=== PATIENT | male | born 1940 | race Caucasian/White ===

== ENCOUNTER → 2017-11-16 13:30 | Outpatient (BNVA) | payer OTHER, SELFPAY | PROVIDERS: PCP Physician Assistant Medical; Referring Provider Internal Medicine; Visit Provider Nurse Practitioner Adult Health | DX: R41.3 Other amnesia (principal); R25.1 Tremor, unspecified | CPT/HCPCS: 99204 ==

== ENCOUNTER 2017-12-05 11:56 | Emergency (ER) | payer OTHER, SELFPAY ==
[2017-12-05 12:00] VITALS: BP 151/68; PULSE 51; RESP 16; TEMP 36.6; O2SAT 99
--- NOTE | 2017-12-05 12:45 | W.ED.GENAD ---
Discharge Plan Disposition Patient Disposition: HOME Condition: Stable Discharge Details Chief Complaint: Cellulitis Clinical Impression: Cellulitis of left hand, Abrasion of hand, left Primary Care Provider: Josh Rodrigues V ED Provider: Sona Keith Home Meds and New Rx's Prescriptions: New clindamycin HCl 150 mg capsule 450 mg PO TID 7 Days Qty: 63 RF: 0 Continue warfarin [Coumadin] 5 MG tablet 2.5 mg PO DIRECTED RF: 0 brimonidine 15 ML drops 1 drp Ophthalmic DIRECTED RF: 0 donepezil 10 MG tablet,disintegrating 10 mg PO DAILY RF: 0 latanoprost [Xalatan] 2.5 ML drops OU QPM Qty: 60 RF: 0 pravastatin 20 MG tablet 20 mg PO QPM Qty: 60 RF: 0 Discharge Instructions Instructions: Cellulitis (ED), Abrasion (ED) Additional Instructions: Keep left hand clean dry and covered. Apply topical antibiotic ointment to left hand wound. You should receive a call from care management regarding follow-up appointment with a primary care doctor within the next few days for reevaluation. Return immediately to the emergency department any worsening or new concerning symptoms such as fever, red streaking or any worsening signs of infection. Be sure to take probiotics or eat yogurt to help with possible risk of diarrhea due to antibiotics. Discharge Data Discharge Date/Time-TO BE ENTERED AT DEPARTURE: 12/05/17 14:23 Discharge Physician: Sona Keith Medical Decision Making 77-year-old male presents with abrasion to left dorsal hand near left fourth and fifth metacarpal after hit hand on steel door with extension of mild to moderate edema and erythema onto hand and distal wrist over the past 2 days. Tetanus up-to-date 2011. Denies fever. Patient appears nontoxic. There is no fluctuance, induration, red streaking. He does have what appears to be a mild cellulitis of the left hand. Patient was offered x-ray but declines. There does not appear to be any bony injury, ecchymosis or deformity. Patient has an allergy to penicillin and he is unsure of the reaction so we will hold on Keflex. Will give a dose of clindamycin here and prescription for home. He was informed of the risk of diarrhea, C. difficile colitis with clindamycin but due to high risk of worsening hand infection, will treat. Will arrange for care management to make a follow-up appointment with his primary care doctor within the next 2 days for reevaluation. Patient was instructed to return here immediately if worse. HPI General Mode of arrival: ambulatory. Date/Time Provider Initiated Documentation: 12/05/17 12:12. Limitations to Documentation: no limitations. Information obtained by: patient. HPI Narrative: Patient is a 77-year-old male who presents to the ED with a complaint of left hand infection after hit hand against a steel door 2 days ago. Patient states he has been washing the area and using peroxide without relief. Now he notes redness and swelling spreading from the left knuckle to the hand and wrist. He denies known fever and states he has been eating and drinking normally. He denies any recent antibiotics. Past medical history: CVA, cholesterol, atrial fibrillation, dementia Surgical history: Social history: Quit tobacco, denies alcohol or drugs Medications: Coumadin, pravastatin, [facility] pencil Allergies: Penicillin PCP: Dr. Candi Conteh Related Data Home Medications Medication Instructions Recorded Confirmed latanoprost [Xalatan] 0 ml OU QPM #60 btl 09/27/12 12/05/17 pravastatin 20 mg PO QPM #60 tab 09/27/12 12/05/17 brimonidine 1 drp OPHTHALMIC DIRECTED 09/27/17 12/05/17 script donepezil 10 mg PO DAILY tab-cap 09/27/17 11/16/17 warfarin [Coumadin] 2.5 mg PO DIRECTED tab-cap 09/27/17 12/05/17 clindamycin HCl 450 mg PO TID 7 Days #63 cap 12/05/17 Previous Rx's Medication Instructions Recorded latanoprost [Xalatan] 0 ml OU QPM #60 btl 09/27/12 pravastatin 20 mg PO QPM #60 tab 09/27/12 clindamycin HCl 450 mg PO TID 7 Days #63 cap 12/05/17 Allergies Allergy/AdvReac Type Severity Reaction Status Date / Time Penicillins Allergy Unknown long time Unverified 12/05/17 12:05 ago General Stated Complaint: Cellulitis MISSAEL: 3 Review of Systems Review of Systems All systems reviewed & are unremarkable except as noted in HPI and below Constitutional Denies chills, Denies excessive sweating, Denies fatigue, Denies fever(s), Denies weakness and Denies weight loss Eyes Reports system reviewed and no additional complaints, except as docu and Denies blurry vision ENT Denies vertigo, Denies dizziness, Denies otalgia, Denies nasal congestion, Denies sore throat and Denies throat swelling Cardiovascular Denies chest pain, Denies syncope, Denies rapid heart rate and Denies dyspnea Respiratory Denies dyspnea Gastrointestinal Denies abdominal pain, Denies diarrhea and Denies vomiting Genitourinary Denies hematuria, Denies dysuria and Denies flank pain Musculoskeletal Denies back pain, Reports arthralgias and Reports joint swelling Integumentary/Breasts Denies lesions and Denies rash Neurologic Denies behavioral changes, Denies confusion, Denies vertigo, Denies dizziness, Denies syncope and Denies weakness Psychiatric Denies behavioral changes, Denies confusion and Denies depression Endocrine Denies excessive sweating and Denies fatigue Hematologic/Lymphatic Denies easy bruising and Denies lymphadenopathy Allergic/Immunologic Denies throat swelling PFSH Family History Other Dementia Medical History Hx of smoking (Acute) Glaucoma (Chronic) History of CVA (cerebrovascular accident) (Acute) Hyperlipidemia (Acute) Chest pain (Acute) Chronic anticoagulation (Acute) Paroxysmal A-fib (Acute) Dementia (Chronic) Laceration of thigh, left (Acute) Social History lives independently: Yes Smoking/Tobacco Use Status: Former Tobacco Use alcohol intake: former substance use type: does not use Exam Const General: cooperative and healthy appearing Orientation: alert and awake [facility] Head: normal to inspection Ears: hearing grossly normal bilaterally and external ears normal General nose exam: external nose normal Face and sinus: normal facial exam Mouth: oral mucosae normal Eyes General: appearance normal, both eyes and all related structures Eyelids: eyelids normal EOM: EOM intact bilaterally Neck Neck: normal visual inspection Lymphatic: no lymphadenopathy noted Chest Chest: normal inspection of the chest Resp Effort & Inspection: normal respiratory effort and able to speak in complete sentences Cardio Rate: regular rate Neuro General: alert and awake Cognition: normal cognition Speech: speech normal Gait: normal gait Motor: muscle tone normal throughout Sensory Exam: no sensory deficits noted Extrem General: normal capillary refill Left upper extremity: wrist (Mild to moderate edema and erythema extending from left dorsal hand to left wrist) and hand (2 mm wound with abrasion noted on left dorsal hand between fourth and fifth metacarpal. Mild to moderate edema and erythema noted to left dorsal hand. No fluctuance, induration or abscess noted per) Psych Appearance: grossly normal Mental Status: mental status grossly normal Speech and Movement: speech and movement normal Affect: normal affect Thought Process: normal Course Vital Signs Temperature 97.9 F 12/05/17 12:00 Pulse 51 L 12/05/17 12:00 Respiratory Rate 16 12/05/17 12:00 Blood Pressure 151/68 H 12/05/17 12:00 Pulse Oximetry 99 12/05/17 12:00 Temperature 97.9 F 12/05/17 12:00 Temperature Source Skin 12/05/17 12:00 Pulse 51 L 12/05/17 12:00 Respiratory Rate 16 12/05/17 12:00 Respiratory Effort 12/05/17 12:09 Blood Pressure 151/68 H 12/05/17 12:00 Pulse Oximetry 99 12/05/17 12:00 Oxygen Delivery Method Room Air 12/05/17 12:00 Oxygen Flow Rate 0 12/05/17 12:00
[2017-12-05] MEDS: Clindamycin 150 MG CAP 450 MG PO (12:50)
--- NOTE | 2017-12-06 10:33 | PDOC.ERCMPRO ---
Care Management Progress Note 12/06-Dr. Keith requested assistance with a PCP (Josh Rodrigues) f/u in 2-3 days for cellulitis. Referral faxed along with provider note to [facility]. Spoke with Elisha at [facility] and she will reach out to patient and schedule appt. Called [facility] and they have changed the provider to reflect Josh Rodrigues.
--- NOTE | 2017-12-06 10:36 | CMPROGNOTE_ITS ---
Care Management Progress Note 12/06-Dr. Keith requested assistance with a PCP (Josh Rodrigues) f/u in 2-3 days for cellulitis. Referral faxed along with provider note to [facility]. Spoke with Elisha at [facility] and she will reach out to patient and schedule appt. Called [facility] and they have changed the provider to reflect Josh Rodrigues.
== END 2017-12-05 14:23 | disposition home or self-care (01) ==
LOC: ER 13:26
PROVIDERS: Emergency Provider Physician Assistant; PCP Physician Assistant Medical
DX: L03.114 Cellulitis of left upper limb (principal); S60.512A Abrasion of left hand, initial encounter; W22.8XXA Striking against or struck by other objects, initial encounter; Z79.01 Long term (current) use of anticoagulants; I48.91 Unspecified atrial fibrillation
CPT/HCPCS: 99283

== ENCOUNTER 2018-10-20 16:23 | Outpatient (REF) | payer OTHER, SELFPAY ==
[2018-10-20 19:16] LABS: HCT 36.6 % (40.0-50.0); HGB 11.4 g/dL (13.5-17.5); Mean Corp. HGB Concentration 31.1 g/dL (32.0-36.0); Mean Corpuscular Hemoglobin 28.6 pg (27.0-33.0); Mean Platelet Volume 11.3 fL (8.0-11.0); Platelet Count 197 x1000/uL (130-400); RBC 3.98 m/cumm (4.50-6.00); RBC Distribution Width 14.6 % (11.8-14.1); White Blood Cell Count 6.08 k/cumm (4.4-10.8)
[2018-10-20 19:35] LABS: ALT 178 U/L (16-63); AST 134 U/L (15-37); Albumin 3.1 g/dL (3.4-5.0); Alkaline Phosphatase 189 U/L (46-116); Anion Gap 6.5 mmol/L (3-11); BUN 20 mg/dL (7-18); Bilirubin, Total 0.6 mg/dL (0.2-1.0); CO2 30.5 mmol/L (21.0-32.0); CREATININE 1.16 mg/dL (0.70-1.30); Calcium 8.3 mg/dL (8.5-10.1); Chloride 103 mmol/L (98-107); Glucose 95 mg/dL (70-100); Potassium 4.3 mmol/L (3.5-5.1); Sodium 140 mmol/L (136-145); TSH 3.52 uIU/mL (0.36-3.74); Total Protein 6.3 g/dL (6.4-8.2)
--- NOTE | 2018-10-31 08:54 | INDS_ITS ---
Date of service: 10/31/18 Time of Service: 08:54 PT Notes Inpatient Physical Therapy Discharge Summary Dates: 10/31/2018 Dates of Service: 10/25/2018 through 10/26/2018 This is a clinical summary of care provided on the duration of dates listed above. No charge was made in the completion of this documentation. Referring Doctor: Marlene Brice NP PT Orders: PT CONSULT: Patient w/ dizziness; ?vertigo and s/p falls, evaluate/treat fall safety Precautions: Fall. Standard. Activity as tolerated. 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 Patient was diagnosed with dizziness, paroxysmal atrial fibrillation, and increased brain natriuretic peptide. PMHX: Medical History (Updated 10/23/18 @ 23:39 by Greg Morse) Cerebrovascular accident (Active 09/25/12) Presumed ischemic left thalamus, balance problems and speech problems 09/25/2012. Chest pain (Resolved) Chronic anticoagulation (Acute) Dementia (Chronic) probable Lewy body dementia (associated w/ tremors, gait instability and visual hallucinations) Glaucoma (Chronic) History of CVA (cerebrovascular accident) (Acute) Hx of smoking (Acute) Hyperlipidemia (Acute) Laceration of thigh, left (Resolved) Paroxysmal A-fib (Acute) Surgical History (Updated 10/23/18 @ 23:27 by Greg Morse) H/O right knee surgery (Acute) repair after chain saw accident History of phacoemulsification of cataract of both eyes with intraocular lens implantation (Acute) right eye 10/10/2018, left eye 09/26/2018 Social History/Home Situation: Patient lives alone in [place], [place]. 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 Per conversation with daughter, family is considering SNF placement. Patient was independent with all mobilty ADL performance prior to admission. Equipment Owned/DME: None Subjective: Objective: General Observation: NT. Please refer to 10/26/2018 DIRECTOR CLINICAL DATA notes. Mental Status: NT. Please refer to 10/26/2018 DIRECTOR CLINICAL DATA notes. Pain: NT. Please refer to 10/26/2018 DIRECTOR CLINICAL DATA notes. ROM: Right Lower Extremity: Hip flexion WFL. Hip abduction WFL. Knee flexion WFL. Ankle dorsiflexion WFL. Ankle plantarflexion WFL. Left Lower Extremity: Hip flexion WFL. Hip abduction WFL. Knee flexion WFL. Ankle dorsiflexion WFL. Ankle plantarflexion WFL. Strength: Right Lower Extremity: Hip flexors 4-/5. Hip abductors 4-/5. Knee flexors 4-/5. Knee extensors 4-/5. Ankle dorsiflexors 4/5. Ankle plantarflexors 4/5. Left Lower Extremity:Hip flexors 4-/5. Hip abductors 4-/5. Knee flexors 4-/5. Knee extensors 4-/5. Ankle dorsiflexors 4/5. Ankle plantarflexors 4/5. Bed Mobility/Transfers: Supine to sit independent Sit to supine independent Sit to stand CGA Stand to sit CGA Bed to chair CGA Chair to bed CGA Gait: Patient tolerated 100 feet of level surface ambulation using FWW requiring CGA. Slowness of movement noted as well as decreased step height and length. Trunk forward flexed, hips and knees slightly flexed. Balance: Static Sitting: Normal Dynamic Sitting: Normal Static Standing: Good Dynamic Standing: Fair Assessment: Patient did not report any dizziness since time of evaluation up until discharge date on 10/26/2018. Testing for dizziness is inconclusive at this time as both [place] and supine roll test resulted to 6-7/10 pain on the neck area. Patient is a 78-year-old male with diagnosis of dizziness, PAF, and increased BNP requiring skilled physical therapy services to address impairments and functional limitations listed below. Patient continues to present with clinical signs and symptoms consistent with current/admitting diagnoses that have resulted to mobility limitations, gait instability, generalized weakness, and impairment of motor control as demonstrated by the following impairment level findings: 1. Decreased strength to B LE major muscle groups 2. Impaired standing balance Impairments are contributing to the following functional limitations: 1. Inability to safely ambulate without assistive device and physical assistance 2. Increase completion time for mobility ADL performance 3. Increased fall risk 4. Inability to negotiate steps alone safely Goals: Goals X1 week 1. Supine-Sit independent MET 2. Sit-Supine independent MET 3. Sit-Stand independent NOT MET 4. Stand-Sit independent NOT MET 5. Bed-Chair independent NOT MET 6. Chair-Bed independent NOT MET 7. Independent gait on level surface with use of least restrictive device for at least 300 feet without report of pain nor dyspnea NOT MET 8. Independent stair negotiation while holding onto bilateral rails for at least 10 steps without report of pain nor dyspnea NOT MET 9. Independent with home exercise program NOT MET 10. Good static and dynamic standing balance/tolerance NOT MET DISCHARGE RECOMMENDATIONS: Patient will benefit from the use of a front wheeled walker in order to reduce fall risk and maximize mobility independence at home. SNF vs. 14/09 care. TREATMENT CODE/TIME: PR. Thank you very much for this referral. Mitzi Brown PT, DPT, CLT [facility]
== END 2018-10-20 16:43 ==
LOC: NCHCN 16:23
PROVIDERS: PCP Physician Assistant Medical; Visit Provider Internal Medicine
DX: I48.0 Paroxysmal atrial fibrillation (principal); I63.9 Cerebral infarction, unspecified; G20 Parkinson's disease; G31.83 Neurocognitive disorder with Lewy bodies
CPT/HCPCS: 80053; 85027; 84443

== ENCOUNTER 2018-10-23 17:06 | Inpatient (IN) | payer OTHER, SELFPAY ==
[2018-10-23] VITALS (31 sets, daily range): BP systolic 105–146; BP diastolic 60–96; PULSE 69–115; RESP 12–24; TEMP 36.5–37.4; O2SAT 97–99
[2018-10-23] MEDS: Normal Saline Flush 10 ML SYR IVP ×2 (17:45→22:16)
[2018-10-23 18:09] LABS: Abs Immature Grans 0.02 k/cumm (0.0-0.09); Absolute Basophil Count 0.01 k/cumm (0.0-0.2); Absolute Eosinophil Count 0.04 k/cumm (0.0-0.7); Absolute Lymphocyte Count 1.32 k/cumm (1.2-3.4); Absolute Monocyte Count 0.44 k/cumm (0.11-0.7); Absolute Neutrophil Count 4.55 k/cumm (1.2-6.7); Basophils % 0.2; Eosinophils % 0.6; HCT 37.8 % (40.0-50.0); HGB 12.1 g/dL (13.5-17.5); Immature Grans % 0.3; Lymphocytes % 20.7; Mean Corpuscular Hemoglobin 29.2 pg (27.0-33.0); Mean Corpuscular Volume 91.3 fL (80-95); Mean Platelet Volume 10.3 fL (8.0-11.0); Monocytes % 6.9; Neutrophils % 71.3; Platelet Count 208 x1000/uL (130-400); RBC 4.14 m/cumm (4.50-6.00); RBC Distribution Width 14.9 % (11.8-14.1); White Blood Cell Count 6.38 k/cumm (4.4-10.8)
[2018-10-23 18:10] LABS: INR 1.2 (0.9-1.1); Prothrombin Time 11.8 sec (9.3-11.0)
--- NOTE | 2018-10-23 18:15 | ED.GENADUL_ITS ---
Discharge Plan Disposition Patient Disposition: [facility] Discharge Details Chief Complaint: Dizzy/Sync Clinical Impression: Dizziness, Atrial fibrillation, CHF (congestive heart failure) Primary Care Provider: Josh Rodrigues V ED Provider: Fransisco Lopez Home Meds and New Rx's Prescriptions: No Action warfarin [Coumadin] 5 MG tablet 2.5 mg PO DAILY RF: 0 prednisolone-moxifloxacin HCl 1-0.5 % Drops,Suspension 1 drp OPHTHALMIC (EYE) DAILY RF: 0 Medical Decision Making 18:20 --78-year-old male with history of CVA in the past, hyperlipidemia, atrial fibrillation on Coumadin, here after 2 episodes of severe dizziness that he describes as vertigo. Patient did not lose consciousness but did fall during these episodes. Bilateral leg edema which is worse than his baseline. Patient sustained a superficial abrasion to his right forearm. He has no bony tenderness. Patient did hit his head and is on Coumadin. Consider intracranial hemorrhage. Plan to obtain CT of the head. Patient notes some neck discomfort and is tender midline neck. I will obtain CT of the cervical spine to assess for fracture. ECG was reviewed and interpreted by me: Atrial fibrillation 111 bpm, right bundle branch block present, nondiagnostic. Patient is not currently taking medications that were listed in prior medical record. He is taking Coumadin as prescribed. He is on no rate controlling agents for his atrial fibrillation. Consider rapid A. fib during these episodes versus other arrhythmia. Patient has no persistent vertigo at this time but he does have a history of prior CVA. Consider posterior circulation TIA vs arrhythmia and syncope. 19:45 --CT of the head interpreted by radiology: No acute intracranial pathology. CT of the cervical spine interpreted by radiology: No acute cervical spine fracture. Labs are reviewed: Patient has subtherapeutic INR. Normal troponin but elevated BNP. I am concerned about intermittent rapid A. fib with CHF. Consider neurologic causes of vertigo - patient may benefit from brain MRI - not currently available. Patient reassessed and heart rate has improved. Currently in the 90s. C-spine cleared by me. -- I called and spoke with Dr. Kiser, on-call hospitalist, who will admit the patient for further diagnostics and treatment. -- Chest x-ray was reviewed and interpreted by me: Cardiomegaly, no significant pleural effusions, pending radiologic interpretation at time of admission. HPI General Mode of arrival: ambulatory . Date/Time Provider Initiated Documentation: 10/23/18 17:19 . Limitations to Documentation: no limitations . Information obtained by: patient and family . HPI Narrative: 78-year-old male with history of CVA and residual right arm resting tremor, paroxysmal atrial fibrillation anticoagulated on Coumadin, glaucoma, hyperlipidemia, presents with chief complaint of dizziness. Patient notes that he had to episodes today of severe room spinning vertigo. One episode occurred this morning and then another episode occurred this afternoon. Episodes were severe and lasted a few minutes. Patient notes he did fall during these episodes. He does not believe he actually lost consciousness. He did scrape his right arm during 1 of the spells and also hit his head. Patient denies dizziness at this time. No weakness or numbness. He denies headache at this time. No chest pain. No abdominal pain. Patient is somewhat of a poor historian. Related Data Home Medications Medication Instructions Recorded Confirmed warfarin [Coumadin] 2.5 mg PO DAILY tab-cap 09/27/17 10/23/18 prednisolone-moxifloxacin HCl 1 drp OPHTHALMIC (EYE) DAILY 10/23/18 10/23/18 Allergies Allergy/AdvReac Type Severity Reaction Status Date / Time Penicillins Allergy Unknown long time Unverified 10/23/18 17:26 ago General Stated Complaint: Dizzy/Sync MISSAEL: 2 Review of Systems Review of Systems All systems reviewed & are unremarkable except as noted in HPI and below Cardiovascular Reports pedal edema (bilateral) and Denies dyspnea Respiratory Denies dyspnea PFSH Medical History Chest pain (Acute) Chronic anticoagulation (Acute) Dementia (Chronic) Glaucoma (Chronic) History of CVA (cerebrovascular accident) (Acute) Hx of smoking (Acute) Hyperlipidemia (Acute) Laceration of thigh, left (Acute) Paroxysmal A-fib (Acute) Family History Other Dementia Social History Smoking/Tobacco Use Status: Former Tobacco Use Alcohol Intake: former Drug use: Never Substance use type: does not use Do you feel safe at home: Yes Do you feel safe in your relationship?: Yes Exam Const General: cooperative, comfortable, no acute distress and well developed Orientation: alert and awake HENMT Head: normocephalic and atraumatic Mouth: moist mucous membranes Eyes Conjunctivae: normal conjunctivae Sclera: normal sclerae EOM: EOM intact bilaterally and No nystagmus Neck Neck: trachea midline and supple Resp Auscultation: clear to auscultation bilaterally, no rales, no rhonchi and no wheezes Cardio Jugular venous pressure: no JVD Rate: tachycardic Rhythm: abnormal rhythm irregularly irregular Heart Sounds: no murmurs GI Palpation: soft, not firm, no guarding, no masses, not rigid and nontender Back/Spine/Pelvis Cervical Spine: collar present and other (Cervical tenderness) Skin General skin exam: no rashes or lesions noted Trauma: abrasion (Skin tear right proximal forearm) Neuro General: alert, awake, oriented x3 and tone normal Cranial Nerves: no nystagmus Extrem General: no calf tenderness and edema Laterality: bilateral (1+ pitting) Right upper extremity: elbow/forearm Details: normal ROM; no tenderness, no swelling and no deformity Psych Appearance: grossly normal Mental Status: mental status grossly normal Speech and Movement: speech and movement normal Course Vital Signs Temperature 37.4 C 10/23/18 17:12 Pulse 102 H 10/23/18 17:12 Respiratory Rate 18 10/23/18 17:12 Blood Pressure 117/68 10/23/18 17:12 Pulse Oximetry 97 10/23/18 17:12 Temperature 37.4 C 10/23/18 17:12 Temperature Source Skin 10/23/18 17:12 Pulse 102 H 10/23/18 17:12 Respiratory Rate 18 10/23/18 18:10 Respiratory Effort Non-Labored 10/23/18 18:10 Respiratory Depth Normal 10/23/18 18:10 Respiratory Pattern Normal 10/23/18 18:10 Blood Pressure 117/68 10/23/18 17:12 Blood Pressure Position Sitting 10/23/18 17:12 Pulse Oximetry 97 10/23/18 17:12 Oxygen Delivery Method Room Air 10/23/18 17:12 Oxygen Flow Rate 0 10/23/18 17:12 Lab/Test Results Lab/Test Results: Laboratory Tests Range/Units 10/23/18 17:45 WBC (4.4-10.8) k/cumm 6.38 RBC (4.50-6.00) m/cumm 4.14 L Hgb (13.5-17.5) g/dL 12.1 L Hct (40.0-50.0) % 37.8 L MCV (80-95) fL 91.3 MCH (27.0-33.0) pg 29.2 MCHC (32.0-36.0) g/dL 32.0 RDW (11.8-14.1) % 14.9 H Plt Count (130-400) x1000/uL 208 MPV (8.0-11.0) fL 10.3 Immature Gran % 0.3 Neutrophils % 71.3 Lymphocytes % 20.7 Monocytes % 6.9 Eosinophils % 0.6 Basophils % 0.2 Absolute Neutrophils (1.2-6.7) k/cumm 4.55 Absolute Lymphocytes (1.2-3.4) k/cumm 1.32 Absolute Monocytes (0.11-0.7) k/cumm 0.44 Absolute Eosinophils (0.0-0.7) k/cumm 0.04 Absolute Basophils (0.0-0.2) k/cumm 0.01
[2018-10-23 18:18] LABS: ALT 87 U/L (16-63); AST 34 U/L (15-37); Albumin 2.9 g/dL (3.4-5.0); Alkaline Phosphatase 187 U/L (46-116); Anion Gap 9.5 mmol/L (3-11); BUN 21 mg/dL (7-18); Bilirubin, Total 0.5 mg/dL (0.2-1.0); CO2 28.5 mmol/L (21.0-32.0); CREATININE 1.27 mg/dL (0.70-1.30); Calcium 8.5 mg/dL (8.5-10.1); Chloride 105 mmol/L (98-107); Estimated GFR 54.85 (mL/min/1.73m2); Glucose 114 mg/dL (70-100); Magnesium 1.9 mg/dL (1.8-2.4); Sodium 143 mmol/L (136-145); Total Protein 6.7 g/dL (6.4-8.2)
--- NOTE | 2018-10-23 18:20 | DI.CT_ITS ---
SYMPTOMS/DIAGNOSIS: VERTIGO EARLIER, NECK TENDERNESS S/P FALL NONCONTRAST HEAD CT: Comparison is made with September,. The CSF density space is seen in the right basal ganglia, not changed from the previous exam. No acute infarct, hemorrhage or mass is seen. There is mild atrophy. There is mild patchiness of the white matter likely reflecting small vessel disease. There is no evidence of skull fracture. There is mucus retention at the floors of both maxillary sinuses. The mastoid air cells appear clear. IMPRESSION: No acute abnormality. CT OF THE CERVICAL SPINE: There is no evidence of a fracture or subluxation. There are degenerative disc changes and facet degenerative changes. There is no prevertebral soft tissue swelling. No pneumothorax is seen at the lung apices. IMPRESSION: Degenerative changes. No acute abnormality.
--- NOTE | 2018-10-23 18:24 | DI.VRAD_ITS ---
EXAM: CT Head Without Contrast EXAM DATE/TIME: 10/23/2018 5:47 PM CLINICAL HISTORY: 78 years old, male; Other: Vertigo earlier; Other: Vertigo fall earlier TECHNIQUE: Imaging protocol: Computed tomography of the head without contrast. Radiation optimization: All CT scans at this facility use at least one of these dose optimization techniques: automated exposure control; mA and/or kV adjustment per patient size (includes targeted exams where dose is matched to clinical indication); or iterative reconstruction. COMPARISON: CT HEAD WITHOUT CONTRAST 09/25/2012 8:28 AM FINDINGS: Brain: Small chronic right inferior basal ganglia lacunar infarct. Nonspecific hypodensities of the periventricular and deep subcortical white matter, most likely secondary to chronic small vessel ischemic change. No intracranial hemorrhage or extra-axial fluid collection. No evidence of mass effect or midline shift. Luevano-white matter differentiation is normal. Ventricles: Prominence of the ventricles and sulci, most likely attributed to parenchymal volume loss. Bones/joints: No acute osseus lesion or fracture. Sinuses: Unremarkable as visualized. Mastoid air cells: Partial opacification of inferior left mastoid air cells. Soft tissues: Unremarkable. IMPRESSION: 1. No acute intracranial pathology. 2. Partial opacification of inferior left mastoid air cells. 3. Other chronic findings, as above. EXAM: CT Cervical Spine Without Contrast EXAM DATE/TIME: 10/23/2018 5:47 PM CLINICAL HISTORY: 78 years old, male; Other: Vertigo earlier; Other: Vertigo fall earlier TECHNIQUE: Imaging protocol: Computed tomography images of the cervical spine without contrast. Radiation optimization: All CT scans at this facility use at least one of these dose optimization techniques: automated exposure control; mA and/or kV adjustment per patient size (includes targeted exams where dose is matched to clinical indication); or iterative reconstruction. COMPARISON: CT HEAD WITHOUT CONTRAST 09/25/2012 8:28 AM FINDINGS: Vertebrae: Vertebral body heights are maintained. No locked or perched facets. Multilevel facet arthropathy. No acute cervical spine fracture. The dens is intact. Atlanto-axial intervals are normal. Discs/Spinal canal/Neural foramina: Multilevel degenerative changes with intervertebral disc height loss and osteophyte formation, with multilevel areas of mild canal stenosis. Soft tissues: Unremarkable. Lungs: Lung apices are clear. IMPRESSION: No acute cervical spine fracture. Dictated and Authenticated by: Justin Tipton MD. Ordering:NIKO Moody MD
[2018-10-23 18:26] LABS: TSH (W/Ref FT4) 4.12 uIU/mL (0.36-3.74)
[2018-10-23 18:29] LABS: Troponin I < 0.05 ng/mL (0.00-0.06)
[2018-10-23 18:45] LABS: FREE T4 1.19 ng/dL (0.76-1.46)
[2018-10-23 19:11] LABS: NT-proBNP 4588 pg/mL
[2018-10-23 19:13] LABS: Bilirubin Negative (Negative); Blood Negative (Negative); Clarity Clear (Clear); Glucose Negative (Negative); Ketones Negative (Negative); Leukocyte Esterase Negative (Negative); Nitrite Negative (Negative); Specific Gravity 1.015 (1.005-1.025)
[2018-10-23 19:22] LABS: Bacteria Negative HPF (Negative); C & S Indicated? No; Casts Negative LPF (Negative); Crystals Negative HPF (Negative); Epithelial Cells Negative HPF (Negative); Mucus Negative (Negative); Other Cells Negative (Negative); RBC Negative (0-2); WBC 0-2 HPF (0-5)
--- NOTE | 2018-10-23 20:05 | DI.RAD_ITS ---
SYMPTOMS/DIAGNOSIS: LEG SWELLING, SYNCOPE AP AND LATERAL CHEST: Comparison is made with September,. The heart is enlarged. The aorta shows calcification. The lungs appear clear. IMPRESSION: Cardiomegaly. No acute abnormality.
--- NOTE | 2018-10-23 20:18 | DI.VRAD_ITS ---
EXAM: XR Chest, 2 Views EXAM DATE/TIME: 10/23/2018 7:51 PM CLINICAL HISTORY: 78 years old, male; Patient HX: Leg swelling, syncope TECHNIQUE: Imaging protocol: XR of the chest, 2 views. COMPARISON: CR CHEST 2 VIEWS PA,LAT 09/25/2012 8:19 AM FINDINGS: Lungs: No focal areas of consolidation. Pleural space: No pleural effusion or pneumothorax. Heart/Mediastinum: Cardiac and mediastinal silhouettes are unremarkable. Bones/joints: No acute osseus lesion or fracture. IMPRESSION: No acute cardiopulmonary pathology. Dictated and Authenticated by: Justin Tipton MD. Ordering:NIKO Moody MD
--- NOTE | 2018-10-23 21:30 | W.PM.HP.N ---
Date of service: 10/23/18 Time of Service: 21:30 Assessment and Plan (1) Dizziness: Current visit: Yes Status: Acute After discussion with his daughter, it appears that his dizziness and falls are not new and in fact he has had gait instability since his CVA in September 2012 but in past year has gotten worse and now has right sided tremors and slow shuffling gait and hallucinations and frequent memory lapses causing him to get lost while driving. he has been evaluated in the neurology clinic by Maribeth Aragon CNP but has not followed up with Dr. Tucker yet (he was suppose to see her after getting an MRI of brain and B12 level and then follow up w/ neurologist to evaluate for Parkinson's with dementia versus Lewy Body dementia. Dr. Beltran has been handling all of the patient's workup according to the patient's daughter. I will get P.T. to assess his gait/balance, we will get MRI of brain on Wednesday. I will check B12 level in a.m. His TSH was slightly high but with normal T4. (2) Paroxysmal A-fib: Current visit: No Status: Acute I have started him on low dose lopressor 12.5 mg PO tid. I will also increase his warfarin. He has been taking 5 mg on Mondays and 2.5 mg all other days of the week. His INR is low at 1.2, therefore I think that we can at least increase his dose to 5 mg on Wednesday, Wednesday and Wednesday and 2.5 mg all other day I will check echocardiogram to evaluate his LV and RV function given his elevated BNP. I will also continue to cycle his troponin to rule out ACS. (3) Elevated brain natriuretic peptide (BNP) level: Current visit: Yes Status: Acute as above. I have given him one time dose of lasix 20 mg IV. I will start him on low dose lasix orally. We will get echocardiogram on Wednesday. 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 Questionable LOC but both episodes associated w/ falls resulting in superficial abrasions on right forearem. CT of head and neck w/out contrast were negative for any acute findings. EKG demonstrated rapid afib at 111 bpm, RBBB. INR was subtherapeutic at 1.2. CBC remarkable for mild stable anemia w/ Hb 1.2 gm, Hct 37%. CMP remarkable for minimally elevated BUN 21 and mild elevated LFT's w/ ALT 87, normal AST 34 and alkaline phosphatase 187. Troponin I <0.05 but pro-BNP elevated at 4588. CXR w/ cardiomegaly but no infiltrates nor effusions but officially read as no acute cardiopulmonary pathology. Patient is admitted for evaluation and treatment of his afib and presumed mild CHF and evaluation of his dizziness. Dr. Lopez raised concerns that he may have had posterior circulation TIA given his afib and subtherapeutic INR and concerns for acute CHF d/t rapid afib. However, after speaking w/ his daughter, he has been having frequent dizzy spells for over a year and has been prescribed meclizine which has not helped. He has had no other acute neurologic symptoms w/ his vertigo spells today, i.e., no vision loss, no acute paraparesis, no ataxia, no paresthesias. Additional information gained from his daughter includes: Frequent hallucinations and worsening tremors in his right arm/hand along w/ the frequent dizzy spells: this has prompted his PCP, Dr. Beltran to order CT of his head for next ; Elevated LFT's for which Dr. Beltran has ordered CT of his abdomen and pelvis and labs to evaluate for hepatitis; patient has been told to stop his Pravastatin while his LFT's are being evaluated. Dr. Beltran has considered switching the patient off warfarin and on to a DOAC (it is interesting since according to the patient's dc summary from his CVA in September 2012, according to Dr. Stringer, the patient was discharged on Xarelto for his afib because of the presumed cardioembolic cva to his left thalamus). Review of Systems Constitutional Reports as per HPI and Reports frequent falls Eyes Denies loss of vision ENT Reports vertigo and Reports dizziness Cardiovascular Denies chest pain, Denies chest pain with activity, Denies syncope, Reports pedal edema, Reports irregular heart rhythm, Reports leg edema, Reports lightheadedness, Denies palpitations, Denies dyspnea and Denies dyspnea on exertion Respiratory Denies dyspnea and Denies dyspnea on exertion Gastrointestinal Reports system reviewed and no additional complaints, except as docu Genitourinary Reports system reviewed and no additional complaints, except as docu Neurologic Reports behavioral changes, Reports vertigo, Reports dizziness, Denies syncope, Reports frequent falls, Reports lack of coordination, Denies loss of vision, Reports memory loss, Reports other visual disturbances and Reports tremor(s) Psychiatric Reports behavioral changes, Reports difficulty concentrating, Reports memory loss and Reports visual hallucinations (night time hallucinations including seeing of angels flying around) Endocrine Denies palpitations [facility] Medical History (Updated 10/23/18 @ 23:39 by Greg Morse) Cerebrovascular accident (Active 09/25/12) Presumed ischemic left thalamus, balance problems and speech problems 09/25/2012. Chest pain (Resolved) Chronic anticoagulation (Acute) Dementia (Chronic) probable Lewy body dementia (associated w/ tremors, gait instability and visual hallucinations) Glaucoma (Chronic) History of CVA (cerebrovascular accident) (Acute) Hx of smoking (Acute) Hyperlipidemia (Acute) Laceration of thigh, left (Resolved) Paroxysmal A-fib (Acute) Surgical History (Updated 10/23/18 @ 23:27 by Greg Morse) H/O right knee surgery (Acute) repair after chain saw accident History of phacoemulsification of cataract of both eyes with intraocular lens implantation (Acute) right eye 10/10/2018, left eye 09/26/2018 Family History Father , in his lat 70's Heart disease Colon cancer Mother , in her 80's Stroke Dementia Social History Smoking/Tobacco Use Status: Former Tobacco Use Alcohol Intake: former Drug use: Never Substance use type: does not use 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[place], [place] Do you feel safe at home: Yes Do you feel safe in your relationship?: Yes Meds Home Medications Medication Instructions Recorded Confirmed Type warfarin [Coumadin] 2.5 mg PO DAILY tab-cap 09/27/17 10/23/18 History prednisolone-moxifloxacin HCl 1 drp OPHTHALMIC (EYE) DAILY 10/23/18 10/23/18 History Allergies Allergy/AdvReac Type Severity Reaction Status Date / Time Penicillins Allergy Unknown long time Unverified 10/23/18 17:26 ago Exam Const General: cooperative, no acute distress and well developed Nutritional Appearance: overweight Orientation: alert, awake, oriented to person and oriented to place [facility] Head: normal to inspection, no palpable skull fracture, normocephalic and atraumatic General nose exam: external nose normal and nares normal Face and sinus: normal facial exam Mouth: oral mucosae normal, lip normal, tongue normal, oropharynx normal and moist mucous membranes Resp Effort & Inspection: normal respiratory effort and able to speak in complete sentences Auscultation: clear to auscultation bilaterally Cardio Jugular venous pressure: no JVD Palpation: normal PMI Rate: tachycardic Rhythm: abnormal rhythm irregularly irregular Heart Sounds: no murmurs and no rubs Bruits: no carotid bruits Pulses: normal peripheral pulses GI Inspection: normal to inspection Palpation: soft and no hepatosplenomegaly Percussion: normal to percussion Auscultation: normal bowel sounds Skin General skin exam: ecchymosis (over forearms) Trauma: abrasion (right forearm w/ superficial abrasion; has tegaderm patch over it) Neuro General: alert, awake, oriented Patient Orientation: Person and Place, moves all extremities, normal light touch, pain and propioception, no focal motor deficits and CN's II-XI intact bilaterally Cranial Nerves: PERRL, accommodation normal, EOM intact bilaterally, no nystagmus, facial strength normal, tongue midline, gag reflex normal, able to rotate head bilaterally and able to elevate shoulders bilaterally Cognition: normal cognition Speech: speech normal Gait: shuffling Motor: muscle tone normal throughout, strength 5/5 throughout and pronator drift pronator drift of right upper extremity Sensory Exam: no sensory deficits noted Extrem General: full ROM, normal capillary refill, no joint enlargement, edema Laterality: bilateral and pedal edema bilaterally (2+ pitting flip over both feet and pretibial half way up tibia) Psych Speech and Movement: delayed speech and slowed movement Mood: congruent mood Affect: normal affect Attitude: cooperative Thought Process: circumstantial Thought Content: normal Insight: limited Judgment: limited Results Imaging Chest x-ray: image reviewed EKG: image reviewed (afib at 111 bpm, RBBB w/ concordant ST-T downsloping/inversion in V1-V4) Imaging Studies: CT of head w/out contrast: IMPRESSION: 1. No acute intracranial pathology. 2. Partial opacification of inferior left mastoid air cells. 3. Other chronic findings, as above CT of neck w/out constrast: IMPRESSION: No acute cervical spine fracture. Labs : 10/23/18 17:45 10/23/18 17:45 Laboratory Results - last 24 hr 10/23/18 10/23/18 10/23/18 17:45 17:45 17:45 WBC 6.38 RBC 4.14 L Hgb 12.1 L Hct 37.8 L MCV 91.3 MCH 29.2 MCHC 32.0 RDW 14.9 H Plt Count 208 MPV 10.3 Immature Gran % 0.3 Neutrophils % 71.3 Lymphocytes % 20.7 Monocytes % 6.9 Eosinophils % 0.6 Basophils % 0.2 Absolute Neutrophils 4.55 Absolute Lymphocytes 1.32 Absolute Monocytes 0.44 Absolute Eosinophils 0.04 Absolute Basophils 0.01 PT 11.8 H INR 1.2 H Sodium 143 Potassium 4.0 Chloride 105 Carbon Dioxide 28.5 Anion Gap 9.5 BUN 21 H Creatinine 1.27 Estimated GFR/1.73 m2 54.85 Glucose 114 H Calcium 8.5 Magnesium 1.9 Total Bilirubin 0.5 AST 34 ALT 87 H Alkaline Phosphatase 187 H Troponin I < 0.05 NT-Pro-B Natriuret Pep Total Protein 6.7 Albumin 2.9 L TSH Free T4 Urine Color Urine Clarity Urine pH Ur Specific [place] Urine Protein Urine Ketones Urine Blood Urine Nitrite Urine Bilirubin Urine Urobilinogen Ur Leukocyte Esterase Urine RBC Urine WBC Ur Epithelial Cells Urine Crystals Urine Bacteria Urine Casts Urine Mucus Urine Other Ur Culture Indicated? Urine Glucose 10/23/18 10/23/18 10/23/18 17:45 17:45 18:30 WBC RBC Hgb Hct MCV MCH MCHC RDW Plt Count MPV Immature Gran % Neutrophils % Lymphocytes % Monocytes % Eosinophils % Basophils % Absolute Neutrophils Absolute Lymphocytes Absolute Monocytes Absolute Eosinophils Absolute Basophils PT INR Sodium Potassium Chloride Carbon Dioxide Anion Gap BUN Creatinine Estimated GFR/1.73 m2 Glucose Calcium Magnesium Total Bilirubin AST ALT Alkaline Phosphatase Troponin I NT-Pro-B Natriuret Pep 4588 H Total Protein Albumin TSH 4.12 H Free T4 1.19 Urine Color Yellow Urine Clarity Clear Urine pH 7.0 Ur Specific [place] 1.015 Urine Protein Trace H Urine Ketones Negative Urine Blood Negative Urine Nitrite Negative Urine Bilirubin Negative Urine Urobilinogen 2.0 H Ur Leukocyte Esterase Negative Urine RBC Negative Urine WBC 0-2 Ur Epithelial Cells Negative Urine Crystals Negative Urine Bacteria Negative Urine Casts Negative Urine Mucus Negative Urine Other Negative Ur Culture Indicated? No Urine Glucose Negative Last Vital Signs Temp 37.4 C 10/23/18 17:12 Pulse 90 10/23/18 20:30 Resp 18 10/23/18 20:15 BP 146/96 H 10/23/18 20:15 Pulse Ox 98 10/23/18 20:15
[2018-10-23] MEDS: Furosemide 20 MG/2 ML VIAL IVP (22:16)
[2018-10-23] MEDS: Warfarin 5 MG TAB PO (22:16)
[2018-10-23] MEDS: Metoprolol 12.5 MG TAB PO (22:16)
[2018-10-23 22:32] LABS: Troponin I < 0.05 ng/mL (0.00-0.06)
[2018-10-24] VITALS (10 sets, daily range): BP systolic 100–124; BP diastolic 64–77; PULSE 60–93; RESP 18–19; TEMP 36.1–37; O2SAT 93–98
[2018-10-24] MEDS: Metoprolol 12.5 MG TAB PO ×3 (06:02→21:16)
--- NOTE | 2018-10-24 07:27 | W.PM.HP.N ---
[facility] Medical History (Updated 10/23/18 @ 23:39 by Greg Morse) Cerebrovascular accident (Active 09/25/12) Presumed ischemic left thalamus, balance problems and speech problems 09/25/2012. Chest pain (Resolved) Chronic anticoagulation (Acute) Dementia (Chronic) probable Lewy body dementia (associated w/ tremors, gait instability and visual hallucinations) Glaucoma (Chronic) History of CVA (cerebrovascular accident) (Acute) Hx of smoking (Acute) Hyperlipidemia (Acute) Laceration of thigh, left (Resolved) Paroxysmal A-fib (Acute) Surgical History (Updated 10/23/18 @ 23:27 by Greg Morse) H/O right knee surgery (Acute) repair after chain saw accident History of phacoemulsification of cataract of both eyes with intraocular lens implantation (Acute) right eye 10/10/2018, left eye 09/26/2018 Family History Father , in his lat 70's Heart disease Colon cancer Mother , in her 80's Stroke Dementia Social History Smoking/Tobacco Use Status: Former Tobacco Use Alcohol Intake: former Drug use: Never Substance use type: does not use 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[place], [place] Do you feel safe at home: Yes Do you feel safe in your relationship?: Yes Meds Home Medications Medication Instructions Recorded Confirmed Type warfarin [Coumadin] 2.5 mg PO DAILY tab-cap 09/27/17 10/23/18 History prednisolone-moxifloxacin HCl 1 drp OPHTHALMIC (EYE) DAILY 10/23/18 10/23/18 History Allergies Allergy/AdvReac Type Severity Reaction Status Date / Time Penicillins Allergy Unknown long time Unverified 10/23/18 17:26 ago Results Labs : 10/23/18 17:45 10/23/18 17:45 Laboratory Results - last 24 hr 10/23/18 10/23/18 10/23/18 17:45 17:45 17:45 WBC 6.38 RBC 4.14 L Hgb 12.1 L Hct 37.8 L MCV 91.3 MCH 29.2 MCHC 32.0 RDW 14.9 H Plt Count 208 MPV 10.3 Immature Gran % 0.3 Neutrophils % 71.3 Lymphocytes % 20.7 Monocytes % 6.9 Eosinophils % 0.6 Basophils % 0.2 Absolute Neutrophils 4.55 Absolute Lymphocytes 1.32 Absolute Monocytes 0.44 Absolute Eosinophils 0.04 Absolute Basophils 0.01 PT 11.8 H INR 1.2 H Sodium 143 Potassium 4.0 Chloride 105 Carbon Dioxide 28.5 Anion Gap 9.5 BUN 21 H Creatinine 1.27 Estimated GFR/1.73 m2 54.85 Glucose 114 H Calcium 8.5 Magnesium 1.9 Total Bilirubin 0.5 AST 34 ALT 87 H Alkaline Phosphatase 187 H Troponin I < 0.05 NT-Pro-B Natriuret Pep Total Protein 6.7 Albumin 2.9 L TSH Free T4 Urine Color Urine Clarity Urine pH Ur Specific [place] Urine Protein Urine Ketones Urine Blood Urine Nitrite Urine Bilirubin Urine Urobilinogen Ur Leukocyte Esterase Urine RBC Urine WBC Ur Epithelial Cells Urine Crystals Urine Bacteria Urine Casts Urine Mucus Urine Other Ur Culture Indicated? Urine Glucose 10/23/18 10/23/18 10/23/18 17:45 17:45 18:30 WBC RBC Hgb Hct MCV MCH MCHC RDW Plt Count MPV Immature Gran % Neutrophils % Lymphocytes % Monocytes % Eosinophils % Basophils % Absolute Neutrophils Absolute Lymphocytes Absolute Monocytes Absolute Eosinophils Absolute Basophils PT INR Sodium Potassium Chloride Carbon Dioxide Anion Gap BUN Creatinine Estimated GFR/1.73 m2 Glucose Calcium Magnesium Total Bilirubin AST ALT Alkaline Phosphatase Troponin I NT-Pro-B Natriuret Pep 4588 H Total Protein Albumin TSH 4.12 H Free T4 1.19 Urine Color Yellow Urine Clarity Clear Urine pH 7.0 Ur Specific [place] 1.015 Urine Protein Trace H Urine Ketones Negative Urine Blood Negative Urine Nitrite Negative Urine Bilirubin Negative Urine Urobilinogen 2.0 H Ur Leukocyte Esterase Negative Urine RBC Negative Urine WBC 0-2 Ur Epithelial Cells Negative Urine Crystals Negative Urine Bacteria Negative Urine Casts Negative Urine Mucus Negative Urine Other Negative Ur Culture Indicated? No Urine Glucose Negative 10/23/18 21:05 WBC RBC Hgb Hct MCV MCH MCHC RDW Plt Count MPV Immature Gran % Neutrophils % Lymphocytes % Monocytes % Eosinophils % Basophils % Absolute Neutrophils Absolute Lymphocytes Absolute Monocytes Absolute Eosinophils Absolute Basophils PT INR Sodium Potassium Chloride Carbon Dioxide Anion Gap BUN Creatinine Estimated GFR/1.73 m2 Glucose Calcium Magnesium Total Bilirubin AST ALT Alkaline Phosphatase Troponin I < 0.05 NT-Pro-B Natriuret Pep Total Protein Albumin TSH Free T4 Urine Color Urine Clarity Urine pH Ur Specific [place] Urine Protein Urine Ketones Urine Blood Urine Nitrite Urine Bilirubin Urine Urobilinogen Ur Leukocyte Esterase Urine RBC Urine WBC Ur Epithelial Cells Urine Crystals Urine Bacteria Urine Casts Urine Mucus Urine Other Ur Culture Indicated? Urine Glucose Last Vital Signs Temp 36.2 C L 10/24/18 04:27 Pulse 81 10/24/18 06:45 Resp 18 10/24/18 06:45 BP 114/75 10/24/18 06:45 Pulse Ox 97 10/24/18 06:45
[2018-10-24 08:02] LABS: INR 1.2 (0.9-1.1)
[2018-10-24] MEDS: Potassium Chloride 10 MEQ TABCR 20 MEQ PO (08:05)
[2018-10-24 08:14] LABS: Magnesium 1.8 mg/dL (1.8-2.4); NT-proBNP 4878 pg/mL
[2018-10-24 08:18] LABS: Troponin I < 0.05 ng/mL (0.00-0.06)
[2018-10-24 08:19] LABS: Anion Gap 7.9 mmol/L (3-11); BUN 18 mg/dL (7-18); CO2 29.1 mmol/L (21.0-32.0); CREATININE 1.22 mg/dL (0.70-1.30); Calcium 8.6 mg/dL (8.5-10.1); Chloride 105 mmol/L (98-107); Estimated GFR 57.45 (mL/min/1.73m2); Ferritin 411 ng/mL (8-388); Glucose 105 mg/dL (70-100); Potassium 3.4 mmol/L (3.5-5.1); Sodium 142 mmol/L (136-145)
[2018-10-24 08:25] LABS: Iron 48 ug/dL (50-175); Total Iron Binding Capacity 272 ug/dL (250-450); Transferrin Sat 18 % (20-55)
[2018-10-24 08:33] LABS: Vitamin B12 416 pg/mL (193-986)
[2018-10-24] MEDS: LORazepam 0.5 MG TAB PO (08:45)
--- NOTE | 2018-10-24 09:30 | DI.MRI_ITS ---
SYMPTOM/DIAGNOSIS: H/O CVA, A FIB, NEW ONSET DIZZINESS , HEADACHE MRI BRAIN: Comparison is made with head CT dated 23 Oct 2018. T2 sagittal, T1, T2, FLAIR, Diffusion and gradient echo axial sequences were performed. There is no evidence of mass, acute infarct or hemorrhage. The ventricles are within normal limits in size. The vascular flow voids appear intact. IMPRESSION: Atrophy and small vessel disease of white matter. No acute abnormality.
--- NOTE | 2018-10-24 10:05 | DI.MRI_ITS ---
SYMPTOM/DIAGNOSIS: H/O CVA. A FIB, NEW ONSET OF DIZZINESS, HEADACHE MRA [place].: CT angiography was performed with multi slice acquisition and multi planar and 3D reconstruction. The exam is mildly limited by patient motion. There is no evidence of vascular occlusion or significant stenosis. No aneurysm is visible. IMPRESSION: Negative MRA of the brain.
--- NOTE | 2018-10-24 10:39 | DI.MRI_ITS ---
SYMPTOM/DIAGNOSIS: H/O CVA, A FIB WITH NEW ONSET DIZZINESS MRA NECK: CT angiography was performed with multi slice acquisition and multi planar and 3D reconstruction. The exam was somewhat limited by patient motion. There is no evidence of occlusion or significant stenosis. There is no evidence of dissection.
--- NOTE | 2018-10-24 10:49 | PT.INNT ---
Date of service: 10/24/18 PT Notes PT Inpatient non treatment note: 10/24/18 Physical Therapist arrived to treat patient at 915am. Patient had been taken down for imaging with MRI/MRA At 1045 am patient back to floor but noticeably under the effects of the sedative New order came through for PT consult with non Urgent status. Will evaluate tomorrow in the am.
[2018-10-24] MEDS: Magnesium Oxide 400 MG TAB 800 MG PO (10:53)
[2018-10-24] MEDS: Furosemide 20 MG TAB PO (10:53)
[2018-10-24] MEDS: Potassium Chloride 20 MEQ TABCR PO (10:54)
--- NOTE | 2018-10-24 11:05 | DI.VRAD_ITS ---
EXAM: MR Head Without Contrast EXAM DATE/TIME: 10/24/2018 10:16 AM CLINICAL HISTORY: 78 years old, male; Patient HX: HX of CVA, afib, new onset dizziness, headache. TECHNIQUE: Imaging protocol: MR of the head without contrast. COMPARISON: HEAD^MRA COW 10/24/2018 9:[address] HEAD CERVICAL SPINE WO 10/23/2018 6:12:32 PM FINDINGS: Brain: There is chronic lacunar infarct in left thalamus. The ventricles and sulci are proportionally enlarged, consistent with volume loss / atrophy. There is T2 prolongation in the cerebral white matter, consistent with microvascular disease. [place] white differentiation is intact. Diffusion weighted images show no restricted diffusion or evidence of acute infarct. There is no mass effect or midline shift. There is no acute intracranial hemorrhage. There are no extra-axial fluid collections. Ventricles: No evidence of hydrocephalus Sinuses: There are bilateral maxillary sinus small retention cysts or polyps. Mastoid air cells: There is fluid in multiple left mastoid air cells and very few right mastoid air cells. Orbits: There have been bilateral intraocular lens replacements likely related to cataract surgery. Other vasculature: Flow voids in main vascular structures are visualized. IMPRESSION: 1. No evidence of acute intracranial abnormality. No evidence of acute infarction, hemorrhage, or mass. 2. Atrophy and microvascular disease. 3. Given the patient's clinical history and / or findings on MRI, MRA to assess the intracranial vascular system would be appropriate. Dictated and Authenticated by: Katiana Quevedo MD. Ordering:[facility] Lito Garza MD
--- NOTE | 2018-10-24 11:11 | DI.VRAD_ITS ---
EXAM: MR Angiography Neck Without Contrast EXAM DATE/TIME: 10/24/2018 10:31 AM CLINICAL HISTORY: 78 years old, male; Dizziness and giddiness and headache; Patient HX: HX of CVA, afib, new onset dizziness, headache. TECHNIQUE: Imaging protocol: Magnetic resonance angiography of the neck without contrast. 3D rendering: MIP reconstructed images were created and reviewed. COMPARISON: HEAD^MRA COW 10/24/2018 9:44 AM FINDINGS: Right common carotid artery: No significant stenosis or occlusion. No evidence of dissection. Right internal carotid artery: Extracranial segment is patent with no significant stenosis or occlusion. No evidence of dissection. Right external carotid artery: No significant stenosis or occlusion. Right vertebral artery: No significant stenosis or occlusion. No evidence of dissection. Left common carotid artery: No significant stenosis or occlusion. No evidence of dissection. Left internal carotid artery: Extracranial segment is patent with no significant stenosis or occlusion. No evidence of dissection. Left external carotid artery: No significant stenosis or occlusion. Left vertebral artery: No significant stenosis or occlusion. No evidence of dissection. IMPRESSION: No evidence of cervical carotid or vertebral arteries stenosis or occlusion. COMMENT: Reference per NASCET criteria for degree of stenosis: Mild: less than 50% stenosis. Moderate: 50-69% stenosis. Severe: 70-94% stenosis. Near occlusion: 95-99% stenosis. Dictated and Authenticated by: Katiana Quevedo MD. [facility] Lito Garza MD
--- NOTE | 2018-10-24 11:15 | DI.VRAD_ITS ---
EXAM: MR Angiogram Head Without and With Contrast, Arteries EXAM DATE/TIME: 10/24/2018 9:56 AM CLINICAL HISTORY: 78 years old, male; Pain; Patient HX: HX of CVA, afib, new onset dizziness, headache. TECHNIQUE: Imaging protocol: MR angiogram head without and with intravenous contrast. Exam focused on the arteries. 3D rendering: MIP reconstructed images were created and reviewed. COMPARISON: MRI - BRAIN WO CONTRAST 09/26/2012 4:43 PM FINDINGS: Limitations: There is spatial misregistration due to motion and poor seminal M1 and proximal M2 branches of middle cerebral arteries. Right internal carotid artery: Unremarkable. Intracranial segment is patent with no significant stenosis. No aneurysm. Right anterior cerebral artery: Unremarkable. No occlusion or significant stenosis. No aneurysm. Right middle cerebral artery: Right middle cerebral artery shows widely patent M1 segment. There is slightly Limited visualization of proximal M2 segments due to motion. There is likely no significant stenosis or occlusion. There also normal appearing flow void seen on T2-weighted MRI. Right posterior cerebral artery: Unremarkable. No occlusion or significant stenosis. No aneurysm. Right vertebral artery: Unremarkable. No occlusion or significant stenosis. No aneurysm. Left internal carotid artery: Unremarkable. Intracranial segment is patent with no significant stenosis. No aneurysm. Left anterior cerebral artery: Unremarkable. No occlusion or significant stenosis. No aneurysm. Left middle cerebral artery: Left middle cerebral artery shows no evidence of occlusion, definite stenosis, or thrombosis. Left posterior cerebral artery: Unremarkable. No occlusion or significant stenosis. No aneurysm. Left vertebral artery: Unremarkable. No occlusion or significant stenosis. No aneurysm. Basilar artery: Unremarkable. No occlusion or significant stenosis. No aneurysm. IMPRESSION: Limited by motion particularly the right middle cerebral artery. No definite intracranial stenosis. No intracranial vascular occlusion. Posterior circulation is well visualized and appears unremarkable. Dictated and Authenticated by: Katiana Quevedo MD. Ordering:[facility] Lito Garza MD
--- NOTE | 2018-10-24 11:32 | W.PM.PROGNOT ---
Date of Service Date of service: 10/24/18 Time of Service: 11:32 Assessment and Plan (1) Dizziness: Start date: 10/24/18 Start time: 11:43 Current visit: Yes Status: Acute Previous CVA, concern for new CVA, however patient does also have vertigo. 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 MRI, MRA head and neck ordered. MRI revealing no evidence of mass, hemorrhage or infarct, there was some atrophy and microvascular disease shown. MRA no occlusion or stenosis. He does describe sx of dizziness, swaying and loss of balance with nausea which is indicative of vertigo. He has been diagnosed with this in the past. Meclizine was ordered and he will be seen by PT. Echo for tomorrow. (2) Dementia: Start date: 10/24/18 Start time: 11:51 Current visit: No Status: Chronic Likely lewy body.Tremors when sitting still to upper arms. Being worked up by neurology (3) Paroxysmal A-fib: Start date: 10/24/18 Start time: 11:52 Current visit: No Status: Acute Started on low dose lopressor 12.5 mg PO tid. Monitor HR on telemetry appears to rate controlled at this time. Warfarin increased to be theraputic. He has been taking 5 mg on Mondays and 2.5 mg all other days of the week. His INR is low at 1.2, therefore we can at least increase his dose to 5 mg on Wednesday, Wednesday and Wednesday and 2.5 mg all other day Echocardiogram to evaluate his LV and RV function given his elevated BNP. Troponins negative so far. (4) Elevated brain natriuretic peptide (BNP) level: Start date: 10/24/18 Start time: 11:54 Current visit: Yes Status: Acute Received IV dose lasix then transitioned to oral BID 20 mg. Monitor urine output, daily weights, bun and creatinine (5) Edema: Start date: 10/24/18 Start time: 11:55 Current visit: Yes Status: Acute +3 pitting edema, with elevated BNP suspect Heart failure. No crackles heard in lungs. Echo for tomorrow. (6) Hyperlipidemia: Start date: 10/24/18 Start time: 11:57 Current visit: No Status: Acute Continue home medication dose. (7) Chronic anticoagulation: Start date: 10/24/18 Start time: 11:57 Current visit: No Status: Acute Warfarin for afib. Currently not theraputic. Increase dose to 5 mg MWF and monitor daily INR/PT Subjective Patient reports: no new complaints Interval history since last seen: MRI of head, MRA of head and neck preformed revealing no definite intracranial stenosis, no vascular occlusion, posterior circulation well visualized. MRA neck no evidence of cervical carotid or vertebral artery stenosis or occlusion. MRI no evidence of acute intracranial abnormality, infarct,hemorrhage or mass. Continues to have dizziness with nausea feeling. PT ordered. Denies CP, SOB, +3 pitting edema. Anemia panel indicating anemia of chronic disease, could be result coumadin, started on iron. Exam Const General: cooperative, no acute distress and well developed Nutritional Appearance: overweight Orientation: alert, awake, oriented to person and oriented to place [facility] Head: normal to inspection, no palpable skull fracture, normocephalic and atraumatic General nose exam: external nose normal and nares normal Face and sinus: normal facial exam Mouth: oral mucosae normal, lip normal, tongue normal, oropharynx normal and moist mucous membranes Resp Effort & Inspection: normal respiratory effort and able to speak in complete sentences Auscultation: clear to auscultation bilaterally Cardio Jugular venous pressure: no JVD Palpation: normal PMI Rate: regular rate Rhythm: abnormal rhythm irregularly irregular Heart Sounds: no murmurs and no rubs Bruits: no carotid bruits Pulses: normal peripheral pulses GI Inspection: normal to inspection Palpation: soft and no hepatosplenomegaly Percussion: normal to percussion Auscultation: normal bowel sounds Skin General skin exam: ecchymosis (over forearms) Trauma: abrasion (right forearm w/ superficial abrasion; has tegaderm patch over it) Neuro General: alert, awake, oriented Patient Orientation: Person and Place, moves all extremities, normal light touch, pain and propioception, no focal motor deficits and CN's II-XI intact bilaterally Cranial Nerves: PERRL, accommodation normal, EOM intact bilaterally, no nystagmus, facial strength normal, tongue midline, gag reflex normal, able to rotate head bilaterally and able to elevate shoulders bilaterally Cognition: normal cognition Speech: speech normal Gait: shuffling Motor: muscle tone normal throughout, strength 5/5 throughout and pronator drift pronator drift of right upper extremity Sensory Exam: no sensory deficits noted Extrem General: full ROM, normal capillary refill, no joint enlargement, edema Laterality: bilateral and pedal edema bilaterally (2+ pitting flip over both feet and pretibial half way up tibia) Objective Objective Clinical Data: Abnormal lab results 10/23/18 10/23/18 10/23/18 Range/Units 17:45 17:45 17:45 RBC 4.14 L (4.50-6.00) m/cumm Hgb 12.1 L (13.5-17.5) g/dL Hct 37.8 L (40.0-50.0) % RDW 14.9 H (11.8-14.1) % PT 11.8 H (9.3-11.0) sec INR 1.2 H (0.9-1.1) Potassium (3.5-5.1) mmol/L BUN 21 H (7-18) mg/dL Glucose 114 H (70-100) mg/dL Iron (50-175) ug/dL Transferrin % Sat (20-55) % Ferritin (8-388) ng/mL ALT 87 H (16-63) U/L Alkaline Phosphatase 187 H (46-116) U/L NT-Pro-B Natriuret Pep ( - 299) pg/mL Albumin 2.9 L (3.4-5.0) g/dL TSH (0.36-3.74) uIU/mL Urine Protein (Negative) mg/dL Urine Urobilinogen (Up TO 0.2) EU/dL 10/23/18 10/23/18 10/23/18 Range/Units 17:45 17:45 18:30 RBC (4.50-6.00) m/cumm Hgb (13.5-17.5) g/dL Hct (40.0-50.0) % RDW (11.8-14.1) % PT (9.3-11.0) sec INR (0.9-1.1) Potassium (3.5-5.1) mmol/L BUN (7-18) mg/dL Glucose (70-100) mg/dL Iron (50-175) ug/dL Transferrin % Sat (20-55) % Ferritin (8-388) ng/mL ALT (16-63) U/L Alkaline Phosphatase (46-116) U/L NT-Pro-B Natriuret Pep 4588 H ( - 299) pg/mL Albumin (3.4-5.0) g/dL TSH 4.12 H (0.36-3.74) uIU/mL Urine Protein Trace H (Negative) mg/dL Urine Urobilinogen 2.0 H (Up TO 0.2) EU/dL 10/24/18 10/24/18 10/24/18 Range/Units 07:30 07:30 07:30 RBC (4.50-6.00) m/cumm Hgb (13.5-17.5) g/dL Hct (40.0-50.0) % RDW (11.8-14.1) % PT 12.0 H (9.3-11.0) sec INR 1.2 H (0.9-1.1) Potassium 3.4 L (3.5-5.1) mmol/L BUN (7-18) mg/dL Glucose 105 H (70-100) mg/dL Iron (50-175) ug/dL Transferrin % Sat (20-55) % Ferritin 411 H (8-388) ng/mL ALT (16-63) U/L Alkaline Phosphatase (46-116) U/L NT-Pro-B Natriuret Pep 4878 H ( - 299) pg/mL Albumin (3.4-5.0) g/dL TSH (0.36-3.74) uIU/mL Urine Protein (Negative) mg/dL Urine Urobilinogen (Up TO 0.2) EU/dL 10/24/18 Range/Units 07:30 RBC (4.50-6.00) m/cumm Hgb (13.5-17.5) g/dL Hct (40.0-50.0) % RDW (11.8-14.1) % PT (9.3-11.0) sec INR (0.9-1.1) Potassium (3.5-5.1) mmol/L BUN (7-18) mg/dL Glucose (70-100) mg/dL Iron 48 L (50-175) ug/dL Transferrin % Sat 18 L (20-55) % Ferritin (8-388) ng/mL ALT (16-63) U/L Alkaline Phosphatase (46-116) U/L NT-Pro-B Natriuret Pep ( - 299) pg/mL Albumin (3.4-5.0) g/dL TSH (0.36-3.74) uIU/mL Urine Protein (Negative) mg/dL Urine Urobilinogen (Up TO 0.2) EU/dL Vital Signs Temperature 36.3 C L 10/24/18 07:35 Temperature Source Tympanic 10/24/18 07:35 Pulse 79 10/24/18 08:59 Pulse Rhythm Irregular 10/23/18 21:51 Pulse 99 H 10/23/18 19:46 Respiratory Rate 18 10/24/18 07:35 Respiratory Effort Non-Labored 10/23/18 21:51 Respiratory Depth Normal 10/23/18 21:51 Respiratory Pattern Normal 10/23/18 21:51 Blood Pressure 110/71 10/24/18 07:35 Blood Pressure Mean 106 10/23/18 19:46 Blood Pressure Position Sitting 10/23/18 17:12 Pulse Oximetry 98 10/24/18 07:35 Oxygen Delivery Method Room Air 10/24/18 07:35 Oxygen Flow Rate 0 10/24/18 07:35 Pain Level 6 10/24/18 07:35 Intake & Output 10/23/18 10/23/18 10/24/18 11:59 23:59 11:59 Intake Total 90 / 90 680 / 680 Output Total 1900 / 1900 1200 / 1200 Balance -1810 / -1810 -520 / -520 Weight 97.522 kg 85.4 kg Intake: IV 30 / 30 Oral 60 / 60 680 / 680 Output: Urine 1900 / 1900 1200 / 1200 Other: Urine Color Pale Yellow Urine Appearance Clear Clear Comment some spilled. Voiding Methods Toilet Toilet Laboratory Results WBC 6.38 k/cumm (4.4-10.8) 10/23/18 17:45 RBC 4.14 m/cumm (4.50-6.00) L 10/23/18 17:45 Hgb 12.1 g/dL (13.5-17.5) L 10/23/18 17:45 Hct 37.8 % (40.0-50.0) L 10/23/18 17:45 MCV 91.3 fL (80-95) 10/23/18 17:45 MCH 29.2 pg (27.0-33.0) 10/23/18 17:45 MCHC 32.0 g/dL (32.0-36.0) 10/23/18 17:45 RDW 14.9 % (11.8-14.1) H 10/23/18 17:45 Plt Count 208 x1000/uL (130-400) 10/23/18 17:45 MPV 10.3 fL (8.0-11.0) 10/23/18 17:45 Immature Gran % 0.3 10/23/18 17:45 71.3 10/23/18 17:45 20.7 10/23/18 17:45 6.9 10/23/18 17:45 0.6 10/23/18 17:45 0.2 10/23/18 17:45 Absolute Neutrophils 4.55 k/cumm (1.2-6.7) 10/23/18 17:45 Absolute Lymphocytes 1.32 k/cumm (1.2-3.4) 10/23/18 17:45 Absolute Monocytes 0.44 k/cumm (0.11-0.7) 10/23/18 17:45 Absolute Eosinophils 0.04 k/cumm (0.0-0.7) 10/23/18 17:45 Absolute Basophils 0.01 k/cumm (0.0-0.2) 10/23/18 17:45 PT 12.0 sec (9.3-11.0) H 10/24/18 07:30 INR 1.2 (0.9-1.1) H 10/24/18 07:30 Sodium 142 mmol/L (136-145) 10/24/18 07:30 Potassium 3.4 mmol/L (3.5-5.1) L 10/24/18 07:30 Chloride 105 mmol/L (98-107) 10/24/18 07:30 Carbon Dioxide 29.1 mmol/L (21.0-32.0) 10/24/18 07:30 7.9 mmol/L (3-11) 10/24/18 07:30 BUN 18 mg/dL (7-18) 10/24/18 07:30 1.22 mg/dL (0.70-1.30) 10/24/18 07:30 57.45 (mL/min/1.73m2) 10/24/18 07:30 Glucose 105 mg/dL (70-100) H 10/24/18 07:30 Calcium 8.6 mg/dL (8.5-10.1) 10/24/18 07:30 Magnesium 1.8 mg/dL (1.8-2.4) 10/24/18 07:30 Iron 48 ug/dL (50-175) L 10/24/18 07:30 TIBC 272 ug/dL (250-450) 10/24/18 07:30 Transferrin % Sat 18 % (20-55) L 10/24/18 07:30 411 ng/mL (8-388) H 10/24/18 07:30 0.5 mg/dL (0.2-1.0) 10/23/18 17:45 AST 34 U/L (15-37) 10/23/18 17:45 ALT 87 U/L (16-63) H 10/23/18 17:45 187 U/L (46-116) H 10/23/18 17:45 < 0.05 ng/mL (0.00-0.06) 10/24/18 07:30 NT-Pro-B Natriuret Pep 4878 pg/mL (-299) H 10/24/18 07:30 6.7 g/dL (6.4-8.2) 10/23/18 17:45 2.9 g/dL (3.4-5.0) L 10/23/18 17:45 Vitamin B12 416 pg/mL (193-986) 10/24/18 07:30 TSH 4.12 uIU/mL (0.36-3.74) H 10/23/18 17:45 Free T4 1.19 ng/dL (0.76-1.46) 10/23/18 17:45 Yellow (Yellow) 10/23/18 18:30 Clear (Clear) 10/23/18 18:30 7.0 (5-8) 10/23/18 18:30 Ur Specific [place] 1.015 (1.005-1.025) 10/23/18 18:30 Trace mg/dL (Negative) H 10/23/18 18:30 Negative mg/dL (Negative) 10/23/18 18:30 Negative (Negative) 10/23/18 18:30 Negative (Negative) 10/23/18 18:30 Negative (Negative) 10/23/18 18:30 2.0 EU/dL (Up TO 0.2) H 10/23/18 18:30 Ur Leukocyte Esterase Negative (Negative) 10/23/18 18:30 Negative (0-2) 10/23/18 18:30 0-2 HPF (0-5) 10/23/18 18:30 Ur Epithelial Cells Negative HPF (Negative) 10/23/18 18:30 Negative HPF (Negative) 10/23/18 18:30 Negative HPF (Negative) 10/23/18 18:30 Negative LPF (Negative) 10/23/18 18:30 Negative (Negative) 10/23/18 18:30 Negative (Negative) 10/23/18 18:30 Ur Culture Indicated? No 10/23/18 18:30 Negative mg/dL (Negative) 10/23/18 18:30
--- NOTE | 2018-10-24 14:18 | INITIAL_ITS ---
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 CVA, Chest Pain, anticoagulation, dementia, glaucoma, hx of smoking, hyperlipidemia, laceration of thigh-left, paroxysmal A-fib, right knee surgery, phacoemulsification of cataract of both eyes with intraocular lens implant, LE edema PREVIOUS FUNCTIONAL STATUS/SOCIAL/FAMILY SUPPORTS:: Rubén resides alone in [place], [place]. He is and previously was the primary caregiver for his who struggled with dementia prior to her passing. 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 He is mostly independent with ADLs though his friends share concerns around his ability to manage his medications. CURRENT FUNCTIONAL STATUS:: Rubén was lying in bed, surrounded by friends and family. His daughter and grand-daughter were in the room, as well as a few close friends from [employer]. Rubén was quite open about his recent struggles and his friends and family were able to add and correct his mostly accurate information. He engaged fully with this casualty underwriter and was pleasant in interaction. ADVANCE DIRECTIVES:: None on file. Has patient been provided with information about the portal?: Yes Did the patient sign up for the portal?: No CODE STATUS:: Full Code INSURANCE COVERAGE / FINANCIAL ISSUES:: [facility], [facility], [facility] CURRENT HOME/COMMUNITY SERVICES/EQUIPMENT:: Grab bars, tub seat, walker, raised toilet seat PRIMARY CARE PHYSICIAN:: Josh Rodrigues; [facility] POTENTIAL DISCHARGE NEEDS:: Evaluation for further need; level of care recommendations for discharge planning. PATIENT/FAMILY EDUCATION NEEDS:: Review of instructions, recommendations. Discuss self care needs upon discharge. ANTICIPATED BARRIERS TO DISCHARGE:: None identified. TRANSPORTATION:: TBD by disposition and mobility. PLAN:: Rubén will continue to have a work up and be closely monitored at this time. Anticipate he will be evaluated by PT/OT tomorrow with recommendations for discharge; Rubén is agreeable to SNF level of care if recommended. He has plans to travel to [place] in November with his sister which he does each winter.
--- NOTE | 2018-10-24 16:19 | NUR.NOTE ---
Nursing Note: patients family has delivered patients eye drops , powerhouse electrician apprentice has taken them to the pharmacy for their approval for administration
[2018-10-24] MEDS: Potassium Chloride 20 MEQ TABCR 40 MEQ PO (17:18)
[2018-10-24] MEDS: Acetaminophen 325 MG TAB PO (19:39)
[2018-10-24] MEDS: Warfarin 5 MG TAB PO (19:40)
[2018-10-24] MEDS: Normal Saline Flush 10 ML SYR IVP (19:46)
[2018-10-25] VITALS (9 sets, daily range): BP systolic 102–132; BP diastolic 66–75; PULSE 58–89; RESP 16–18; TEMP 36.2–36.8; O2SAT 95–99
[2018-10-25] MEDS: Metoprolol 12.5 MG TAB PO ×3 (05:48→20:11)
[2018-10-25 07:07] LABS: Abs Immature Grans 0.05 k/cumm (0.0-0.09); Absolute Basophil Count 0.01 k/cumm (0.0-0.2); Absolute Eosinophil Count 0.07 k/cumm (0.0-0.7); Absolute Lymphocyte Count 1.06 k/cumm (1.2-3.4); Absolute Monocyte Count 0.56 k/cumm (0.11-0.7); Absolute Neutrophil Count 5.39 k/cumm (1.2-6.7); Basophils % 0.1; HCT 37.9 % (40.0-50.0); HGB 11.9 g/dL (13.5-17.5); Immature Grans % 0.7; Lymphocytes % 14.8; Mean Corp. HGB Concentration 31.4 g/dL (32.0-36.0); Mean Corpuscular Hemoglobin 28.7 pg (27.0-33.0); Mean Corpuscular Volume 91.3 fL (80-95); Mean Platelet Volume 10.8 fL (8.0-11.0); Monocytes % 7.8; Neutrophils % 75.6; Platelet Count 190 x1000/uL (130-400); RBC 4.15 m/cumm (4.50-6.00); RBC Distribution Width 14.7 % (11.8-14.1); White Blood Cell Count 7.14 k/cumm (4.4-10.8)
[2018-10-25 07:18] LABS: BUN 23 mg/dL (7-18); CREATININE 1.17 mg/dL (0.70-1.30); Calcium 8.5 mg/dL (8.5-10.1); Chloride 105 mmol/L (98-107); Glucose 105 mg/dL (70-100); Magnesium 1.9 mg/dL (1.8-2.4); Potassium 4.1 mmol/L (3.5-5.1); Sodium 140 mmol/L (136-145)
[2018-10-25 07:24] LABS: INR 1.4 (0.9-1.1); Prothrombin Time 14.3 sec (9.3-11.0)
[2018-10-25] MEDS: Potassium Chloride 10 MEQ TABCR 20 MEQ PO (08:56)
[2018-10-25] MEDS: Furosemide 20 MG TAB PO (08:56)
--- NOTE | 2018-10-25 09:50 | CMPROGNOTE_ITS ---
Care Management Progress Note S/O: CM left for Rubén Owen's daughter regarding winter planning. Rubén reported he goes to [place] each winter with his sister. [employer]j of [employer] asked for confirmation of this information. ANAID met with Lexie and Rubén who was sitting up in a chair in his room. He reported being agreeable to rehab and wanting to strengthen prior to traveling to [place] with his sister but the plan did remain for him to go and he does have a flight booked. Rubén will be evaluated for PT/OT, ANAID will [facility] and prior authorization of [facility]. A: 78 year old male admitted to [facility] 10/23/18 for Dizziness, Rapid AFIB, CHF P: Referral faxed to [facility] for review. Discussed with Ej jacket changer-anticipate determination forthcoming. Rubén will work with PT/OT today to determine level of care recommendations. Rubén also continues work up for possible CVA, possible Lewy Body Dementia. ANAID continues to follow and support discharge planning considerations.
--- NOTE | 2018-10-25 09:50 | PDOC.CMPRO ---
Care Management Progress Note S/O: CM left for Rubén Owen's daughter regarding winter planning. Rubén reported he goes to [place] each winter with his sister. Ej of [employer] asked for confirmation of this information. ANAID met with Lexie and Rubén who was sitting up in a chair in his room. He reported being agreeable to rehab and wanting to strengthen prior to traveling to [place] with his sister but the plan did remain for him to go and he does have a flight booked. Rubén will be evaluated for PT/OT, ANAID will [facility] and prior authorization of [facility]. A: 78 year old male admitted to [facility] 10/23/18 for Dizziness, Rapid AFIB, CHF P: Referral faxed to [facility] for review. Discussed with Ej associate professor of economics-anticipate determination forthcoming. Rubén will work with PT/OT today to determine level of care recommendations. Rubén also continues work up for possible CVA, possible Lewy Body Dementia. ANIAD continues to follow and support discharge planning considerations.
--- NOTE | 2018-10-25 12:01 | IN_ITS ---
Date of service: 10/25/18 Time of Service: 11:08 PT Notes Inpatient Physical Therapy Evaluation Date: 10/25/2018 Referring Doctor: Marlene Brice NP PT Orders: PT CONSULT: Patient w/ dizziness; ?vertigo and s/p falls, evaluate/treat fall safety Precautions: Fall. Standard. Activity as tolerated. 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 Patient was diag nosed with dizziness, paroxysmal atrial fibrillation, and increased brain natriuretic peptide. PMHX: Medical History (Updated 10/23/18 @ 23:39 by Greg Morse) Cerebrovascular accident (Active 09/25/12) Presumed ischemic left thalamus, balance problems and speech problems 09/25/2012. Chest pain (Resolved) Chronic anticoagulation (Acute) Dementia (Chronic) probable Lewy body dementia (associated w/ tremors, gait instability and visual hallucinations) Glaucoma (Chronic) History of CVA (cerebrovascular accident) (Acute) Hx of smoking (Acute) Hyperlipidemia (Acute) Laceration of thigh, left (Resolved) Paroxysmal A-fib (Acute) Surgical History (Updated 10/23/18 @ 23:27 by Greg Morse) H/O right knee surgery (Acute) repair after chain saw accident History of phacoemulsification of cataract of both eyes with intraocular lens implantation (Acute) right eye 10/10/2018, left eye 09/26/2018 Social History/Home Situation: Patient lives alone in [place], [place]. 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 Per conversation with daughter, family is considering SNF placement. Patient was independent with all mobilty ADL performance prior to admission. Equipment Owned/DME: None Subjective: Patient reported no dizziness, lightheadedness, and spinning s ensation throughout PT session and vertigo testing. His daughter did say that he complained of some lightheadedness early this morning. Objective: General Observation: Patient seen while finishing up toileting activity with assistance for transfers and ambulation back to bed provided by this PT. Mental Status: Alert and oriented as to person and place. Patient required moderate to maximal verbal cueing for testing for vertigo/dizziness. Pain:0/10 ROM: Right Lower Extremity: Hip flexion WFL. Hip abduction WFL. Knee flexion WFL. Ankle dorsiflexion WFL. Ankle plantarflexion WFL. Left Lower Extremity: Hip flexion WFL. Hip abduction WFL. Knee flexion WFL. Ankle dorsiflexion WFL. Ankle plantarflexion WFL. Strength: Right Lower Extremity: Hip flexors 4-/5. Hip abductors 4-/5. Knee flexors 4-/5. Knee extensors 4-/5. Ankle dorsiflexors 4/5. Ankle plantarflexors 4/5. Left Lower Extremity:Hip flexors 4-/5. Hip abductors 4-/5. Knee flexors 4-/5. Knee extensors 4-/5. Ankle dorsiflexors 4/5. Ankle plantarflexors 4/5. Bed Mobility/Transfers: Supine to sit minimal assist Sit to supine minimal assist Sit to stand Stand to sit Bed to chair Chair to bed Gait: Patient tolerated 20 feet of in room level surface ambulation using FWW requiring CGA. Slowness of movement noted as well as decreased step height and length. Trunk forward flexed, hips and knees slightly flexed. Balance: Static Sitting: Normal Dynamic Sitting: Normal Static Standing: Good Dynamic Standing: Fair Special Tests: Mobility Limitations Standardized Measure [facility] AM-PAC 6 clicks Basic Mobility Inpatient Short Form: Raw Score: 17 CMS Score: 51% deficit TESTING FOR DIZZINESS: Oculomotor Exam- Patient negative for spontaneous nystagmus. Smooth pursuit to L limited, negative for saccadic eye movement. Patient reported object in front of him to be blurry at 16 cm when near point convergence was assessed. Cervical Spine Exam- Negative for sharp rodney test indicating intact an tlantoaxial stability anteropsoteriorly. Alar ligament test negative as well indicating intact lateral atlantoaxial stability. Vertebral artery test produced R horizontal nystagmus. Head Thrust Tests- VOR Negative. Head Shaking Test negative. Sturbridge-Hallpike Maneuver- Unable to complete as patient was not able to tolerate positioning and complained of 6-7/10 pain on cervical area for both sides. Ger julio was only able to sustain 20-30 seconds of said position with no nystagmus nor reproduction of symptoms reported by patient and observed by this PT and student PT. Would try to attempt another test this afternoon. Supine Head Roll Test- NT due to pain complaint in the neck. Will attempt another test this afternoon. Informed Consent/Education: Patient instructed in purpose of PT consult and plan of care. Assessment: Patient denied any symptoms of dizziness throughout PT session and testing for vertigo. Testing for dizziness is inconclusive at this time as both Sturbridge-Hallpike and supine roll test resulted to 6-7/10 pain on the neck area. Patient is a 78-year-old male with diagnosis of dizziness, PAF, and increased BNP requiring skilled physical therapy services to address impairments and functional limitations listed below. Patient presents with clinical signs and symptoms consistent with current/admitting diagnoses that have resulted to mobility limitations, gait instability, generalized weakness, and impairment of motor control as demonstrated by the following impairment level findings: 1. Decreased strength to B LE major muscle groups 2. Impaired sitting/standing balance 3. Impaired activity tolerance Impairments are contributing to the following functional limitations: 1. Dependent bed mobility skills 2. Increased dependence with transfers 3. Inability to safely ambulate without assistive device and physical assistance 4. Increase completion time for mobility ADL performance 5. Increased fall risk 6. Inability to negotiate steps alone safely Patient is assessed as a 79278 moderate complexity based on the following: History: Patient is a 75-year-old male with past medical history as listed above now with diagnosis of dizziness, PAF, and increased BNP Examination: Demonstrable impairment in strength, balance, and range of motion with underlying impairments and functional limitations as documented above Presentation:Evolving Decision Makin moderate complexity Goals: Goals X1 week 1. Supine-Sit independent 2. Sit-Supine independent 3. Sit-Stand independent 4. Stand-Sit independent 5. Bed-Chair independent 6. Chair-Bed independent 7. Independent gait on level surface with use of least restrictive device for at least 300 feet without report of pain nor dyspnea 8. Independent stair negotiation while holding onto bilateral rails for at least 10 steps without report of pain nor dyspnea 9. Independent with home exercise program 10. Good static and dynamic standing balance/tolerance Plan of Care/Treatment Plan: 1-2x/day, 7 days/week x 1 week. Plan of care has been reviewed with the ASSISTANT OFFICE MANAGER providing the service under Physical Therapy direction. Initiate Physical Therapy intervention for strengthening, bed mobility, transfers, gait, stairs, balance training, use of assistive device. DISCHARGE RECOMMENDATIONS: Patient will benefit from the use of a front wheeled walker in order to reduce fall risk and maximize mobility independence at home. SNF vs. 14/09 care. TREATMENT CODE/TIME: 9716 2 x 30 minutes, 9753 0 x 19 minutes beginning at 11:08 AM. Thank you very much for this referral. Mitzi Brown PT, DPT, CLT [facility]
--- NOTE | 2018-10-25 12:21 | W.PM.PROGNOT ---
Date of Service Date of service: 10/25/18 Time of Service: 12:22 Assessment and Plan (1) Dizziness: Current visit: Yes Status: Acute Continues to have brief episodes of dizziness. History of vertigo. MRI showed no evidence of mass, hemorrhage or infarct, note was made of atrophy and microvascular disease. MRA with no evidence of occlusion or stenosis. PT consulted. Echo pending for today. PRN meclizine. (2) Dementia: Current visit: No Status: Chronic Presently being worked up by neurology. Likely Lewy body dementia with tremors, gait instability and visual hallucinations. Will need outpatient follow up with neurology. (3) Paroxysmal A-fib: Current visit: No Status: Acute Telemetry showing atrial fibrillation with rates in the 70s to 80s. He has been initiated on low-dose metoprolol, 12.5 mg p.o. 3 times daily. He is chronically on anticoagulation with warfarin, his INR is subtherapeutic at 1.4 today. Warfarin dose increased yesterday. Continue to follow daily INR. Echocardiogram pending for today. (4) Elevated brain natriuretic peptide (BNP) level: Current visit: Yes Status: Acute Currently on oral Lasix 20 mg p.o. twice daily. Continues to have significant lower extremity edema. Echo pending to evaluate LV and RV function. (5) Edema: Current visit: Yes Status: Acute Continues to have pitting edema bilateral lower extremities, improving. Echo as above. (6) Hyperlipidemia: Current visit: No Status: Acute Does not appear to be on treatment for hyperlipidemia at present. Most recent lipid panel on file in 2015 did not show elevated lipids. Remains on problem list. (7) Chronic anticoagulation: Current visit: No Status: Acute Chronically anticoagulated on warfarin, INR subtherapeutic at 1.4 as above. Warfarin increased yesterday. Continue daily INR, adjust warfarin dose as indicated. (8) Anemia of chronic disease: Current visit: Yes Status: Acute With low iron and elevated ferritin. No need for iron supplementation as ferritin is above 100. (9) DVT prophylaxis: Current visit: Yes Status: Acute Not therapeutic on warfarin. Lovenox until therapeutic INR achieved. (10) Discharge planning issues: Current visit: Yes Status: Acute He is a FULL CODE. Will likely need rehab prior to return home. PT consulted. This case was discussed with Dr. Tijerina who is in agreement. Subjective Interval history since last seen: Rubén Stoddard reports a brief episode of dizziness this morning when he was sitting up in the chair that lasted about 5 minutes and passed. He denies headache, nausea or vomiting. He reports shortness of breath associated with the episode of dizziness. Otherwise no shortness of breath, no wheezing. He reports an occasional cough, productive of thick, white sputum. He denies chest pain/pressure, palpitations. He has been monitored on telemetry, telemetry showing atrial fibrillation with rates in 70s and 80s. He continues to have bilateral lower extremity edema, his daughter reports that the edema has improved. He also reports some difficulty moving his bowels, he is interested in a bowel regimen. He is eating and drinking well. He is voiding frequently and without difficulty. Exam Narrative Exam Narrative: General: Elderly male, laying in bed with head of bed elevated. Daughter present. Answers questions appropriately. Does not appear to be in acute distress. HEENT: Normocephalic, atraumatic, pupils equal round, EOMI, mucous membranes moist. Neck: Supple, no JVD. Respiratory: Respirations even and unlabored, lung sounds with fine rales to right base, no wheezing. Cardiovascular: Irregular rhythm, no murmur appreciated. GI: Normoactive bowel sounds, abdomen soft, nondistended, nontender on palpation. Extremities: Lower extremities with +1 pitting edema bilaterally. Pedal pulses palpable bilaterally. Objective Objective Clinical Data: Abnormal lab results 10/25/18 10/25/18 10/25/18 Range/Units 06:20 06:20 06:20 RBC 4.15 L (4.50-6.00) m/cumm Hgb 11.9 L (13.5-17.5) g/dL Hct 37.9 L (40.0-50.0) % MCHC 31.4 L (32.0-36.0) g/dL RDW 14.7 H (11.8-14.1) % Absolute Lymphocytes 1.06 L (1.2-3.4) k/cumm PT 14.3 H (9.3-11.0) sec INR 1.4 H (0.9-1.1) BUN 23 H (7-18) mg/dL Glucose 105 H (70-100) mg/dL Vital Signs Temperature 36.6 C 10/25/18 07:10 Temperature Source Tympanic 10/25/18 07:10 Pulse 78 10/25/18 07:48 Pulse Rhythm Irregular 10/25/18 09:22 Pulse 99 H 10/23/18 19:46 Respiratory Rate 16 10/25/18 07:10 Respiratory Effort 10/25/18 09:22 Respiratory Depth Normal 10/25/18 09:22 Respiratory Pattern Normal 10/25/18 09:22 Blood Pressure 114/72 10/25/18 07:10 Blood Pressure Mean 106 10/23/18 19:46 Blood Pressure Position Sitting 10/23/18 17:12 Pulse Oximetry 98 10/25/18 07:10 Oxygen Delivery Method Room Air 10/25/18 07:10 Oxygen Flow Rate 0 10/25/18 07:10 Pain Level 0 10/25/18 07:10 Intake & Output 10/24/18 10/25/18 10/25/18 23:59 11:59 23:59 Intake Total 970 / 1650 260 / 260 Output Total 1200 / 2400 250 / 250 Balance -230 / -750 Weight 89.1 kg Intake: IV Oral 970 / 1650 250 / 250 Output: Urine 1200 / 2400 250 / 250 Other: Urine Color Pale Pale Urine Appearance Clear Clear Urine Odor None Voiding Methods Urinal Toilet Laboratory Results WBC 7.14 k/cumm (4.4-10.8) 10/25/18 06:20 RBC 4.15 m/cumm (4.50-6.00) L 10/25/18 06:20 Hgb 11.9 g/dL (13.5-17.5) L 10/25/18 06:20 Hct 37.9 % (40.0-50.0) L 10/25/18 06:20 MCV 91.3 fL (80-95) 10/25/18 06:20 MCH 28.7 pg (27.0-33.0) 10/25/18 06:20 MCHC 31.4 g/dL (32.0-36.0) L 10/25/18 06:20 RDW 14.7 % (11.8-14.1) H 10/25/18 06:20 Plt Count 190 x1000/uL (130-400) 10/25/18 06:20 MPV 10.8 fL (8.0-11.0) 10/25/18 06:20 Immature Gran % 0.7 10/25/18 06:20 75.6 10/25/18 06:20 14.8 10/25/18 06:20 7.8 10/25/18 06:20 1.0 10/25/18 06:20 0.1 10/25/18 06:20 Absolute Neutrophils 5.39 k/cumm (1.2-6.7) 10/25/18 06:20 Absolute Lymphocytes 1.06 k/cumm (1.2-3.4) L 10/25/18 06:20 Absolute Monocytes 0.56 k/cumm (0.11-0.7) 10/25/18 06:20 Absolute Eosinophils 0.07 k/cumm (0.0-0.7) 10/25/18 06:20 Absolute Basophils 0.01 k/cumm (0.0-0.2) 10/25/18 06:20 PT 14.3 sec (9.3-11.0) H 10/25/18 06:20 INR 1.4 (0.9-1.1) H 10/25/18 06:20 Sodium 140 mmol/L (136-145) 10/25/18 06:20 Potassium 4.1 mmol/L (3.5-5.1) D 10/25/18 06:20 Chloride 105 mmol/L (98-107) 10/25/18 06:20 Carbon Dioxide 27.0 mmol/L (21.0-32.0) 10/25/18 06:20 8.0 mmol/L (3-11) 10/25/18 06:20 BUN 23 mg/dL (7-18) H 10/25/18 06:20 1.17 mg/dL (0.70-1.30) 10/25/18 06:20 >= 60.00 (mL/min/1.73m2) 10/25/18 06:20 Glucose 105 mg/dL (70-100) H 10/25/18 06:20 Calcium 8.5 mg/dL (8.5-10.1) 10/25/18 06:20 Magnesium 1.9 mg/dL (1.8-2.4) 10/25/18 06:20 Iron 48 ug/dL (50-175) L 10/24/18 07:30 TIBC 272 ug/dL (250-450) 10/24/18 07:30 Transferrin % Sat 18 % (20-55) L 10/24/18 07:30 411 ng/mL (8-388) H 10/24/18 07:30 0.5 mg/dL (0.2-1.0) 10/23/18 17:45 AST 34 U/L (15-37) 10/23/18 17:45 ALT 87 U/L (16-63) H 10/23/18 17:45 187 U/L (46-116) H 10/23/18 17:45 < 0.05 ng/mL (0.00-0.06) 10/24/18 07:30 NT-Pro-B Natriuret Pep 4878 pg/mL (-299) H 10/24/18 07:30 6.7 g/dL (6.4-8.2) 10/23/18 17:45 2.9 g/dL (3.4-5.0) L 10/23/18 17:45 Vitamin B12 416 pg/mL (193-986) 10/24/18 07:30 TSH 4.12 uIU/mL (0.36-3.74) H 10/23/18 17:45 Free T4 1.19 ng/dL (0.76-1.46) 10/23/18 17:45 Yellow (Yellow) 10/23/18 18:30 Clear (Clear) 10/23/18 18:30 7.0 (5-8) 10/23/18 18:30 Ur Specific [place] 1.015 (1.005-1.025) 10/23/18 18:30 Trace mg/dL (Negative) H 10/23/18 18:30 Negative mg/dL (Negative) 10/23/18 18:30 Negative (Negative) 10/23/18 18:30 Negative (Negative) 10/23/18 18:30 Negative (Negative) 10/23/18 18:30 2.0 EU/dL (Up TO 0.2) H 10/23/18 18:30 Ur Leukocyte Esterase Negative (Negative) 10/23/18 18:30 Negative (0-2) 10/23/18 18:30 0-2 HPF (0-5) 10/23/18 18:30 Ur Epithelial Cells Negative HPF (Negative) 10/23/18 18:30 Negative HPF (Negative) 10/23/18 18:30 Negative HPF (Negative) 10/23/18 18:30 Negative LPF (Negative) 10/23/18 18:30 Negative (Negative) 10/23/18 18:30 Negative (Negative) 10/23/18 18:30 Ur Culture Indicated? No 10/23/18 18:30 Negative mg/dL (Negative) 10/23/18 18:30
--- NOTE | 2018-10-25 12:45 | MERGE_ITS ---
*[facility]* *[facility]* [address] [place] [address] Date of study: 10/25/2018 Transthoracic Echocardiography M-mode, complete 2D, complete spectral Doppler, and color Doppler *STUDY CONCLUSIONS* Summary: 1. Left ventricle: The cavity size was normal. Wall thickness was increased in a pattern of mild LVH. Systolic function was at the lower limits of normal. The estimated ejection fraction was 50-55%. The study was not technically sufficient to allow evaluation of LV diastolic dysfunction due to atrial fibrillation. 2. Mitral valve: There was mild to moderate regurgitation. 3. Right ventricle: The cavity size was normal. Wall thickness was normal. Systolic function was normal. 4. Pulmonary arteries: Pulmonary systolic pressure was >= 25mm Hg. 5. Inferior vena cava: The vessel was patent and dilated. The respirophasic diameter changes were blunted (less than 50%), consistent with elevated central venous pressure. *PATIENT PRESENTATION* Height: 182.9cm (72in ) S/D Pressure: 114 / 72 Weight: 88.9kg (195.6lb ) BSA: 2.14m^2 Test start time: 12:45 PM. Test stop time: 01:40 PM. PERFORMING Unknown PERFORMING Nv CONSULTING Wilfred Morse ORDERING Wilfred Morse REFERRING Wilfred Morse METER/RELAY TECHNICIANRT Urmila (R)(CT), AKIN *PROCEDURE DATA* Procedure information: The patient was identified by two identifiers. This study was interpreted by [facility]. Pertinent images and digital data are archived for permanent storage and are available for subsequent review. Comparison was made to the study of 09/25/2012. Study status: Routine. Transthoracic echocardiography. M-mode, complete 2D, complete spectral Doppler, and color Doppler. A Transthoracic Echocardiogram was performed. Scanning was performed from the parasternal, apical, subcostal, and suprasternal notch acoustic windows. Images were obtained using an [id number] cardiac ultrasound machine. Image quality was adequate. Study completion: The patient tolerated the procedure well. History: PMH: Afib CHF. *CARDIAC ANATOMY* Left ventricle: The cavity size was normal. Wall thickness was increased in a pattern of mild LVH. Systolic function was at the lower limits of normal. The estimated ejection fraction was 50-55%. The study was not technically sufficient to allow evaluation of LV diastolic dysfunction due to atrial fibrillation. Aortic valve: Trileaflet. Doppler: There was no stenosis. There was no significant regurgitation. VTI ratio of LVOT to aortic valve: 0.8. Valve area (VTI): 3.1cm^2. Indexed valve area (VTI): 1.5cm^2/m^2. Peak velocity ratio of LVOT to aortic valve: 0.81. Valve area (Vmax): 3.1cm^2. Indexed valve area (Vmax): 1.5cm^2/m^2. Mean velocity ratio of LVOT to aortic valve: 0.86. Valve area (Vmean): 3.3cm^2. Indexed valve area (Vmean): 1.6cm^2/m^2. Mean gradient (S): 3mm Hg. Peak gradient (S): 4.5mm Hg. Aorta: Aortic root: The aortic root was normal in size. Mitral valve: Doppler: There was no evidence for stenosis. There was mild to moderate regurgitation. Peak gradient (D): 7.5mm Hg. Left atrium: The atrium was normal in size. Atrial septum: Poorly visualized. Right ventricle: The cavity size was normal. Wall thickness was normal. Systolic function was normal. Pulmonic valve: Doppler: There was no evidence for stenosis. There was no significant regurgitation. Peak gradient (S): 3.2mm Hg. Tricuspid valve: Doppler: There was mild regurgitation. Pulmonary artery: Poorly visualized. Pulmonary systolic pressure was >= 25mm Hg. Right atrium: The atrium was normal in size. Pericardium: There was no pericardial effusion. Systemic veins: Inferior vena cava: Well visualized. The vessel was patent and dilated. The respirophasic diameter changes were blunted (less than 50%), consistent with elevated central venous pressure. Baseline ECG: Atrial fibrillation. Measurements Left ventricle Value Reference LV ID, ED, PLAX 5.2 cm 3.5 - 6.0 LV ID, ES, PLAX 3.6 cm 2.1 - 4.0 LV PW thickness, ED, PLAX 1.3 cm LV end-diastolic volume, 1-p A2C 83 ml LV ejection fraction, 1-p A2C 52 % LV end-diastolic volume, 1-p A4C 102 ml LV ejection fraction, 1-p A4C 55 % LV e', lateral 0.121 m/sec LV E/e', lateral 11 LV e', medial 0.089 m/sec LV E/e', medial 15 LV e', average 0.105 m/sec LV E/e', average 13 Ventricular septum Value Reference IVS thickness, ED, PLAX 1.1 cm LVOT Value Reference LVOT ID, A-P 2.2 cm LVOT area 3.9 cm^2 LVOT peak velocity, S 0.85 m/sec LVOT mean velocity, S 0.71 m/sec LVOT VTI, S 15.3 cm LVOT peak gradient, S 2.9 mm Hg LVOT mean gradient, S 2.1 mm Hg Stroke volume (SV), LVOT DP 59 ml Stroke index (SV/bsa), LVOT DP 28 ml/m^2 Aortic valve Value Reference Aortic valve peak velocity, S 1.1 m/sec Aortic valve mean velocity, S 0.8 m/sec Aortic valve VTI, S 19.0 cm Aortic mean gradient, S 3 mm Hg Aortic peak gradient, S 4.5 mm Hg VTI ratio, LVOT/AV 0.8 Aortic valve area, VTI 3.1 cm^2 Velocity ratio, peak, LVOT/AV 0.81 Aortic valve area, peak velocity 3.1 cm^2 Velocity ratio, mean, LVOT/AV 0.86 Aortic valve area, mean velocity 3.3 cm^2 Aortic valve area/bsa, mean velocity 1.6 cm^2/m^2 Aorta Value Reference Aortic root ID, ED 3.4 cm Left atrium Value Reference LA ID, A-P, ES 3.4 cm LA ID/bsa, A-P 1.6 cm/m^2 <=2.2 LA volume/bsa, ES, 1-p A4C 21 ml/m^2 LA volume, ES, 2-p 41 ml LA volume/bsa, ES, 2-p 19 ml/m^2 LA/aortic root ratio 0.98 Mitral valve Value Reference Mitral E-wave peak velocity 1.37 m/sec Mitral peak gradient, D 7.5 mm Hg Tricuspid valve Value Reference Tricuspid regurg peak velocity 2.2 m/sec Tricuspid peak RV-RA gradient 20.2 mm Hg Right atrium Value Reference RA area, ES, A4C 15.8 cm^2 8.3 - 19.5 Pulmonic valve Value Reference Pulmonic peak gradient, S 3.2 mm Hg Legend: (L) and (H) swati values outside specified reference range. I have personally reviewed the images and have reviewed and edited the reported findings. Electronically signed by Ej Kapadia MD 10/25/2018 15:18
--- NOTE | 2018-10-25 14:43 | PT.INTREAT ---
Date of service: 10/25/18 Time of Service: 14:43 PT Notes 10/25/18 SUBJECTIVE: Rubén stating he has been quite busy today and did not sleep well last night. He states he does like walking and is agreeable to PT. OBJECTIVE: Seated in wheel chair just returning from testing. Agreeable to PT. TRANFERS Sit to stand: CGA Stand to sit: CGA, verbal cues Sit to supine: I GAIT Device: FWW Weight bearing: Full Assist: CGA Distance: 75' Deviation: Decreased gait speed ASSESSMENT: Defer balance and strengthening exercises this PM due to his level of fatigue. No complaints of dizziness with gait this afternoon and no LOB or path deviations. PLAN: Continue per POC. Treatment time: Cristina Almaguer PTA Clinic location: [facility] [place], [place]
--- NOTE | 2018-10-25 15:06 | CHAPLAIN ---
Rubén was in bed when I visited. A patient sitter was with him. Rubén is listed as being a member of the [facility] [employer] of [facility], and he confirmed that, although he lives in [facility] He gave me permission to contact his link knitting machine operator Ferdinand Viera (?), and said members meet in the pastors home currently. He later said someone from his family has likely told his link knitting machine operator that he is here. A note from Lithographic Etcher Patrica Fitch stated that members of the scientologist have visited Rubén, so I won't worry about contacting the link knitting machine operator. Rubén was very pleasant and told me about his nine children and 49 grandchildren. I will continue to visit.
[2018-10-25] MEDS: Enoxaparin 40 MG/0.4 ML SYR SC (15:41)
[2018-10-25] MEDS: Acetaminophen 325 MG TAB PO (16:29)
--- NOTE | 2018-10-25 16:33 | NUR.NOTE ---
Nursing Note: pT has a black bag with pills in it, he was going to take some Tylenol for some eye pain, But i instructed him to wait for the nurse, it was in a camera bag. pT gave me the acetaminophen, but it sounds like there is more in the bag.
--- NOTE | 2018-10-25 16:58 | NUR.NOTE ---
Nursing Note: pT friend from [facility] that knows him well, Nora took the medication bag with her to bring back to his house. She told him it wouldn't be good to be taking things that nursing didn't know about.
[2018-10-25] MEDS: Docusate Sodium 100 MG CAP PO (20:11)
[2018-10-25] MEDS: Polyethylene Glycol 3350 17 GM PACKET PO (20:12)
[2018-10-26] VITALS (10 sets, daily range): BP systolic 104–136; BP diastolic 65–98; PULSE 52–91; RESP 18–19; TEMP 36.3–37.2; O2SAT 97–99
[2018-10-26 07:17] LABS: Abs Immature Grans 0.04 k/cumm (0.0-0.09); Absolute Basophil Count 0.01 k/cumm (0.0-0.2); Absolute Eosinophil Count 0.06 k/cumm (0.0-0.7); Absolute Lymphocyte Count 1.38 k/cumm (1.2-3.4); Absolute Neutrophil Count 3.85 k/cumm (1.2-6.7); Basophils % 0.2; HCT 35.9 % (40.0-50.0); HGB 11.4 g/dL (13.5-17.5); Immature Grans % 0.7; Mean Corp. HGB Concentration 31.8 g/dL (32.0-36.0); Mean Corpuscular Hemoglobin 28.9 pg (27.0-33.0); Mean Corpuscular Volume 90.9 fL (80-95); Mean Platelet Volume 10.3 fL (8.0-11.0); Neutrophils % 67.1; Platelet Count 214 x1000/uL (130-400); RBC 3.95 m/cumm (4.50-6.00); RBC Distribution Width 14.7 % (11.8-14.1); White Blood Cell Count 5.74 k/cumm (4.4-10.8)
[2018-10-26 07:24] LABS: INR 1.6 (0.9-1.1); Prothrombin Time 16.1 sec (9.3-11.0)
[2018-10-26 07:29] LABS: Anion Gap 8.8 mmol/L (3-11); BUN 22 mg/dL (7-18); CO2 26.2 mmol/L (21.0-32.0); CREATININE 1.16 mg/dL (0.70-1.30); Calcium 8.4 mg/dL (8.5-10.1); Chloride 107 mmol/L (98-107); Glucose 102 mg/dL (70-100); Magnesium 1.9 mg/dL (1.8-2.4); Sodium 142 mmol/L (136-145)
[2018-10-26] MEDS: Potassium Chloride 10 MEQ TABCR 20 MEQ PO (07:50)
[2018-10-26] MEDS: Metoprolol 12.5 MG TAB PO ×2 (07:50→19:33)
[2018-10-26] MEDS: Docusate Sodium 100 MG CAP PO ×2 (07:50→19:32)
[2018-10-26] MEDS: Furosemide 20 MG TAB PO ×2 (07:50→15:43)
[2018-10-26] MEDS: Polyethylene Glycol 3350 17 GM PACKET PO ×2 (07:51→19:33)
[2018-10-26] MEDS: Magnesium Oxide 400 MG TAB PO (07:56)
--- NOTE | 2018-10-26 10:10 | PTTR_ITS ---
Date of service: 10/26/18 Time of Service: 10:10 PT Notes 10/26/18 SUBJECTIVE: Rubén stating he feels good today. He has not been dizzy today. He did have a bout of nausea just before breakfast but this has resolved. OBJECTIVE: Pt seated in his chair. Agreeable to PT treatment. Notes he needs to use the bathroom first. TRANSFERS Sit to stand: CGA Stand to sit: CGA GAIT Device: FWW Weight bearing: Full Assist: CGA Distance: 100' Deviation: Decreased gait speed, short stride length THEREX: Seated LE/UE strengthening as noted on flow sheet. TOILETING: I with self care without dizziness. ASSESSMENT: Progressing with gait distance. Continues to have short stride length with shuffling type gait. He is able to correct this with cueing. PLAN: Continue current POC progressing toward's established goals. Treatment time: 24 minutes [id number] Cristina Almaguer PTA Clinic location: [facility] [place], [place]
--- NOTE | 2018-10-26 11:46 | PHARADMIT ---
Admission Pharmacy Clinical Review DIZZINESS, RAPID A-FIB, CHF Code Status Full Code Current Weight Wgt-89.2 kg Renally Cleared and Narrow Therapeutic Index Meds CrCl~ 57 mL/min Meds-OK QTc Value / Action Taken QTc-505 Lasix BP Control, Fever BP-105/70 Tmax- 36.8C Electrolytes reviewed Na- 142 K+4.0 Mag-1.9 DVT Prophylaxis Lovenox, Warfarin Opiate Usage / Scheduled Bowel Regimen Ordered No Yes Plt/SCr for Heparin / Enoxaparin Plts-214 SCr-1.16 INR for Warfarin INR-1.6 H/H stable, WBC/Bands H&H- 11.4/35.9 WBC- 5.74 Antibiotic appropriateness none Cultures and Sensitivities none Surgical ABX d/c within 24 hr na DM control / Insulin Dosing BG-102 Heart Failure (Check EF%) (YASHIRA's, B-Block, Diuretics) Lopressor, Lasix, IV to PO Switch Yes Home Meds Reviewed Yes Home Meds Not Ordered Ordered Comments PatOwn Eye drops X 2
--- NOTE | 2018-10-26 12:54 | W.PM.PROGNOT ---
Date of Service Date of service: 10/26/18 Time of Service: 12:55 Assessment and Plan (1) Dizziness: Current visit: Yes Status: Acute Denies dizziness today. History of vertigo. MRI showed no evidence of mass, hemorrhage or infarct, note was made of atrophy and microvascular disease. MRA with no evidence of occlusion or stenosis. Echo shows systolic function at the lower limits of normal with LVEF of 50-55%, unable to sufficiently allow for evaluation of LV diastolic dysfunction due to atrial fibrillation with mild to moderate mitral regurgitation, indicating likely mild CHF. Continue PRN meclizine. (2) Dementia: Current visit: No Status: Chronic Presently being worked up by neurology. Likely Lewy body dementia with tremors, gait instability and visual hallucinations. Will need outpatient follow up with neurology. (3) Paroxysmal A-fib: Current visit: No Status: Acute Telemetry showing atrial fibrillation with rates in the 60s-70s. Was initiated on low-dose metoprolol, 12.5 mg p.o. 3 times daily, Metoprolol decreased to BID dosing yesterday in the setting of bradycardia. He is chronically on anticoagulation with warfarin, his INR remains subtherapeutic at 1.6 today. Warfarin dose increased. Continue to follow daily INR. Echocardiogram as above. (4) Elevated brain natriuretic peptide (BNP) level: Current visit: Yes Status: Acute Likely on the basis of mild CHF with systolic function at low end of normal and Echo unable to assess for diastolic dysfunction. Has been on daily lasix, continues to have significant lower extremity edema and rales on exam, give additional dose of lasix today. Adjust lasix as needed. Repeat BNP tomorrow. (5) Edema: Current visit: Yes Status: Acute Continues to have pitting edema bilateral lower extremities, improving. Echo as above. (6) Chronic anticoagulation: Current visit: No Status: Acute Chronically anticoagulated on warfarin, INR subtherapeutic at 1.6 as above. Warfarin increased to 5 mg daily. Continue daily INR, adjust warfarin dose as indicated. (7) Anemia of chronic disease: Current visit: Yes Status: Acute With low iron and elevated ferritin. No need for iron supplementation as ferritin is above 100. (8) DVT prophylaxis: Current visit: Yes Status: Acute Not therapeutic on warfarin. Lovenox until therapeutic INR achieved. (9) Discharge planning issues: Current visit: Yes Status: Acute He is a FULL CODE. Will likely need rehab prior to return home. PT consulted. Consult Palliative as outpatient. This case was discussed with Dr. Tijerina who is in agreement. Subjective Interval history since last seen: Rubén Stoddard denies dizziness today. He has been up out of bed, he worked with PT and did not experience any dizziness. He did feel slightly nauseated after eating breakfast this morning which resolved without intervention. He reports an occasional cough, productive of white sputum. He denies shortness of breath or wheezing, chest pain/pressure, palpitations. He denies abdominal pain. He had a small constipated bowel movement yesterday. He is urinating frequently. He has been monitored on telemetry and has been in atrial fibrillation with heart rates in the 60s and 70s overnight. Exam Narrative Exam Narrative: General: Elderly male, sitting up in chair. Pleasant and cooperative, answers questions appropriately. In no acute distress. HEENT: Normocephalic, atraumatic, pupils equal round, EOMI, mucous membranes moist. Neck: Supple, no JVD. Respiratory: Respirations even and unlabored, lung sounds with fine rales to right base, no wheezing. Cardiovascular: Irregular rhythm, no murmur appreciated. GI: Normoactive bowel sounds, abdomen soft, nondistended, nontender on palpation. Extremities: Right elbow and dorsal aspect of right hand with dressings intact. Lower extremities with +1 pitting edema bilaterally. Pedal pulses palpable bilaterally. Objective Objective Clinical Data: Abnormal lab results 10/26/18 10/26/18 10/26/18 Range/Units 06:35 06:35 06:35 RBC 3.95 L (4.50-6.00) m/cumm Hgb 11.4 L (13.5-17.5) g/dL Hct 35.9 L (40.0-50.0) % MCHC 31.8 L (32.0-36.0) g/dL RDW 14.7 H (11.8-14.1) % PT 16.1 H (9.3-11.0) sec INR 1.6 H (0.9-1.1) BUN 22 H (7-18) mg/dL Glucose 102 H (70-100) mg/dL Calcium 8.4 L (8.5-10.1) mg/dL Vital Signs Temperature 36.8 C 10/26/18 11:20 Temperature Source Tympanic 10/26/18 11:20 Pulse 76 10/26/18 11:20 Pulse Rhythm Irregular 10/26/18 09:16 Pulse 99 H 10/23/18 19:46 Respiratory Rate 18 10/26/18 11:20 Respiratory Effort 10/26/18 09:16 Respiratory Depth Normal 10/26/18 09:16 Respiratory Pattern Normal 10/26/18 09:16 Blood Pressure 105/70 10/26/18 11:20 Blood Pressure Mean 106 10/23/18 19:46 Blood Pressure Position Sitting 10/23/18 17:12 Pulse Oximetry 98 10/26/18 11:20 Oxygen Delivery Method Room Air 10/26/18 11:20 Oxygen Flow Rate 0 10/26/18 11:20 Pain Level 0 10/26/18 11:20 Intake & Output 10/25/18 10/26/18 10/26/18 23:59 11:59 23:59 Intake Total 120 / 860 720 / 720 Output Total 1350 / 1675 1075 / 1075 Balance -1230 / -815 -355 / -355 Weight 89.2 kg Intake: Oral 120 / 850 720 / 720 Output: Urine 1350 / 1675 1075 / 1075 Other: Urine Color Yellow Yellow Urine Appearance Clear Clear Comment urinal used 2x while at echo for a total of 250 Voiding Methods Urinal Toilet Urinal Laboratory Results WBC 5.74 k/cumm (4.4-10.8) 10/26/18 06:35 RBC 3.95 m/cumm (4.50-6.00) L 10/26/18 06:35 Hgb 11.4 g/dL (13.5-17.5) L 10/26/18 06:35 Hct 35.9 % (40.0-50.0) L 10/26/18 06:35 MCV 90.9 fL (80-95) 10/26/18 06:35 MCH 28.9 pg (27.0-33.0) 10/26/18 06:35 MCHC 31.8 g/dL (32.0-36.0) L 10/26/18 06:35 RDW 14.7 % (11.8-14.1) H 10/26/18 06:35 Plt Count 214 x1000/uL (130-400) 10/26/18 06:35 MPV 10.3 fL (8.0-11.0) 10/26/18 06:35 Immature Gran % 0.7 10/26/18 06:35 67.1 10/26/18 06:35 24.0 10/26/18 06:35 7.0 10/26/18 06:35 1.0 10/26/18 06:35 0.2 10/26/18 06:35 Absolute Neutrophils 3.85 k/cumm (1.2-6.7) 10/26/18 06:35 Absolute Lymphocytes 1.38 k/cumm (1.2-3.4) 10/26/18 06:35 Absolute Monocytes 0.40 k/cumm (0.11-0.7) 10/26/18 06:35 Absolute Eosinophils 0.06 k/cumm (0.0-0.7) 10/26/18 06:35 Absolute Basophils 0.01 k/cumm (0.0-0.2) 10/26/18 06:35 PT 16.1 sec (9.3-11.0) H 10/26/18 06:35 INR 1.6 (0.9-1.1) H 10/26/18 06:35 Sodium 142 mmol/L (136-145) 10/26/18 06:35 Potassium 4.0 mmol/L (3.5-5.1) 10/26/18 06:35 Chloride 107 mmol/L (98-107) 10/26/18 06:35 Carbon Dioxide 26.2 mmol/L (21.0-32.0) 10/26/18 06:35 8.8 mmol/L (3-11) 10/26/18 06:35 BUN 22 mg/dL (7-18) H 10/26/18 06:35 1.16 mg/dL (0.70-1.30) 10/26/18 06:35 >= 60.00 (mL/min/1.73m2) 10/26/18 06:35 Glucose 102 mg/dL (70-100) H 10/26/18 06:35 Calcium 8.4 mg/dL (8.5-10.1) L 10/26/18 06:35 Magnesium 1.9 mg/dL (1.8-2.4) 10/26/18 06:35 Iron 48 ug/dL (50-175) L 10/24/18 07:30 TIBC 272 ug/dL (250-450) 10/24/18 07:30 Transferrin % Sat 18 % (20-55) L 10/24/18 07:30 411 ng/mL (8-388) H 10/24/18 07:30 0.5 mg/dL (0.2-1.0) 10/23/18 17:45 AST 34 U/L (15-37) 10/23/18 17:45 ALT 87 U/L (16-63) H 10/23/18 17:45 187 U/L (46-116) H 10/23/18 17:45 < 0.05 ng/mL (0.00-0.06) 10/24/18 07:30 NT-Pro-B Natriuret Pep 4878 pg/mL (-299) H 10/24/18 07:30 6.7 g/dL (6.4-8.2) 10/23/18 17:45 2.9 g/dL (3.4-5.0) L 10/23/18 17:45 Vitamin B12 416 pg/mL (193-986) 10/24/18 07:30 TSH 4.12 uIU/mL (0.36-3.74) H 10/23/18 17:45 Free T4 1.19 ng/dL (0.76-1.46) 10/23/18 17:45 Yellow (Yellow) 10/23/18 18:30 Clear (Clear) 10/23/18 18:30 7.0 (5-8) 10/23/18 18:30 Ur Specific [place] 1.015 (1.005-1.025) 10/23/18 18:30 Trace mg/dL (Negative) H 10/23/18 18:30 Negative mg/dL (Negative) 10/23/18 18:30 Negative (Negative) 10/23/18 18:30 Negative (Negative) 10/23/18 18:30 Negative (Negative) 10/23/18 18:30 2.0 EU/dL (Up TO 0.2) H 10/23/18 18:30 Ur Leukocyte Esterase Negative (Negative) 10/23/18 18:30 Negative (0-2) 10/23/18 18:30 0-2 HPF (0-5) 10/23/18 18:30 Ur Epithelial Cells Negative HPF (Negative) 10/23/18 18:30 Negative HPF (Negative) 10/23/18 18:30 Negative HPF (Negative) 10/23/18 18:30 Negative LPF (Negative) 10/23/18 18:30 Negative (Negative) 10/23/18 18:30 Negative (Negative) 10/23/18 18:30 Ur Culture Indicated? No 10/23/18 18:30 Negative mg/dL (Negative) 10/23/18 18:30
--- NOTE | 2018-10-26 14:11 | PT.INTREAT ---
Date of service: 10/26/18 Time of Service: 14:11 PT Notes 10/26/18 SUBJECTIVE: No complaints of dizziness this afternoon. Notes eating a good lunch and is ready for a nap. OBJECTIVE: Pt just returning from the bathroom. Agreeable to PT. TRANSFERS Sit to stand: CGA Stand to sit: CGA Sit to supine: I GAIT Device: FWW Weight bearing: Full Assist: CGA Distance: 100' Deviation: Short stride length, decreased gait speed ASSESSMENT: Pt tolerates short distance ambulation well with cueing throughout the lengthen stride and perform step through gait pattern. Pt would benefit from continued gait training, strengthening and balance exercises for improvements in functional mobility. PLAN: Continue current POC progressing toward's established goals. Treatment time: 15' 00831 Cristina Almaguer PTA Clinic location: [facility] [place], [place]
[2018-10-26] MEDS: Enoxaparin 40 MG/0.4 ML SYR SC (15:43)
[2018-10-26] MEDS: Normal Saline Flush 10 ML SYR IVP (15:43)
--- NOTE | 2018-10-26 16:56 | PDOC.CMPRO ---
- If Service Date Differs Date of service: 10/26/18 Time of Service: 16:56 Care Management Progress Note S/O: Rubén is sitting up in the chair when CM into visit him. CM reviewed plan for short rehab stay prior to returning home with family. DPOA is Joana Stoddard. [facility] has offered a bed for tomorrow at 1100 he will transport via wheelchair van. 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 CM has provided update to daughter Joana who is in agreement with the plan. A: Rubén is a 78 year old man admitted with afib and dizziness with a history of dementia. P: Rubén will be discharged to [facility] via wheelchair van at 1100. He will need a palliative care consult ordered as outpatient at time of discharge.
[2018-10-26] MEDS: Warfarin 5 MG TAB PO (19:33)
[2018-10-27 03:58] VITALS: BP 135/82; PULSE 62; RESP 18; TEMP 36.4; O2SAT 96
[2018-10-27 07:05] VITALS: PULSE 70
[2018-10-27 07:38] LABS: HGB 12.8 g/dL (13.5-17.5); Mean Corpuscular Hemoglobin 29.1 pg (27.0-33.0); Mean Corpuscular Volume 90.9 fL (80-95); Mean Platelet Volume 11.3 fL (8.0-11.0); Platelet Count 199 x1000/uL (130-400); RBC Distribution Width 14.7 % (11.8-14.1); White Blood Cell Count 6.61 k/cumm (4.4-10.8)
[2018-10-27 07:42] LABS: Prothrombin Time 19.7 sec (9.3-11.0)
[2018-10-27] MEDS: Metoprolol 12.5 MG TAB PO (07:44)
[2018-10-27] MEDS: Polyethylene Glycol 3350 17 GM PACKET PO (07:45)
[2018-10-27] MEDS: Potassium Chloride 10 MEQ TABCR 20 MEQ PO (07:45)
[2018-10-27] MEDS: Docusate Sodium 100 MG CAP PO (07:45)
[2018-10-27] MEDS: Omeprazole 20 MG CAPCR PO (07:45)
[2018-10-27] MEDS: Furosemide 20 MG TAB PO (07:45)
[2018-10-27 08:12] LABS: ALT 65 U/L (16-63); AST 27 U/L (15-37); Albumin 3.2 g/dL (3.4-5.0); Alkaline Phosphatase 204 U/L (46-116); Anion Gap 8.6 mmol/L (3-11); BUN 22 mg/dL (7-18); Bilirubin, Total 0.4 mg/dL (0.2-1.0); CO2 29.4 mmol/L (21.0-32.0); CREATININE 1.27 mg/dL (0.70-1.30); Chloride 104 mmol/L (98-107); Estimated GFR 54.85 (mL/min/1.73m2); Glucose 107 mg/dL (70-100); Magnesium 2.1 mg/dL (1.8-2.4); NT-proBNP 3452 pg/mL; Potassium 4.1 mmol/L (3.5-5.1); Sodium 142 mmol/L (136-145); Total Protein 7.5 g/dL (6.4-8.2)
--- NOTE | 2018-10-27 10:25 | DSE_ITS ---
Date of service: 10/27/18 Time of Service: 10:26 DS: Diagnosis Discharge Diagnosis (1) Dizziness: Status: Acute (2) Dementia: Status: Chronic (3) Paroxysmal A-fib: Status: Acute (4) Elevated brain natriuretic peptide (BNP) level: Status: Acute (5) Edema: Status: Acute (6) Chronic anticoagulation: Status: Acute (7) Anemia of chronic disease: Status: Acute Discharge Plan Disposition Patient Disposition: SNF (LEVEL 1) [facility] Condition: Improving Discharge Details Chief Complaint: Dizzy/Sync Clinical Impression: Dizziness, Atrial fibrillation, CHF (congestive heart failure) Reason For Visit: DIZZINESS, RAPID AFIB, CHF Admit Date/Time: 10/23/18 19:53 Admit Provider: Greg Morse Attending Provider: Greg Morse Primary Care Provider: Josh Rodrigues V ED Provider: Fransisco Lopez Hospital Course Hospital Course: Rubén Stoddard is a very pleasant 78 year old man with a past medical history of paroxysmal atrial fibrillation, on warfarin, 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 He had a CT head and neck which were negative for any acute findings. EKG demonstrated rapid afib at 111 bpm, RBBB. INR was subtherapeutic at 1.2. His BNP was elevated at 4588, troponin negative. His chest x-ray showed cardiomegaly with no infiltrates. He was found to have significant lower extremity edema in the setting of rapid a-fib and there was concern for mild CHF. He was admitted for further evaluation and management. He went on to have a MRI brain which showed no evidence of mass, hemorrhage or infarct, note was made of atrophy and microvascular disease. MRA with no evidence of occlusion or stenosis. Echo shows systolic function at the lower limits of normal with LVEF of 50-55%, unable to sufficiently allow for evaluation of LV diastolic dysfunction due to atrial fibrillation with mild to moderate mitral regurgitation. This echo may indicate a mild CHF, however, his volume overload may also be on the basis of rapid a-fib or a combination with MR noted on echo as well. He was initiated on beta-aleena therapy and lasix. He was monitored on telemetry, he remained in a-fib with a right bundle branch block, and his rates improved to the 60s and 70s with metoprolol. His lower extremity edema improved significantly. He has had a negative fluid balance every day at the hospital. By the time of discharge, he was no longer coughing, he denied dizziness x48 hours. On admission, his INR was subtherapeutic, there is concern that he may not have been taking his warfrain at home. His Warfarin dose was increased to 5 mg daily. His INR was 2.0 at the time of discharge. He will have a follow up INR in 2 days, his coumadin dose may need adjustment. He has been working with PT and progressing well. PT recommends use of a front wheeled walker in order to reduce fall risk and maximize mobility independence at home. SNF vs. 14/09 care. Mr. Stoddard likely has Lewy body dementia, he is followed by neurology and shoud follow up as scheduled. He is discharged to [facility] today. He will need daily weights and monitoring of fluid balance to ensure he does not get too dry. Lasix is a new medication and may need adjustment. BNP, BMP on 10/31/18. INR 10/29/18. Home Meds and New Rx's Prescriptions: New polyethylene glycol 3350 17 gram Powder In Packet 17 g PO BID Qty: 0 RF: 0 meclizine 25 mg Tablet 25 mg PO TID PRN PRNQty: 0 RF: 0 docusate sodium [Colace] 100 mg Capsule 100 mg PO BID Qty: 0 RF: 0 omeprazole 20 mg Capsule,Delayed Release(Dr/Ec) 20 mg PO DAILY@0730 Qty: 0 RF: 0 furosemide 20 mg Tablet 20 mg PO BID DIURETIC Qty: 0 RF: 0 ondansetron 4 mg Tablet,Disintegrating 4 mg PO Q8H PRN PRNQty: 0 RF: 0 metoprolol tartrate 25 mg Tablet 12.5 mg PO BID Qty: 0 RF: 0 Continued warfarin [Coumadin] 5 MG tablet 2.5 mg PO DAILY RF: 0 prednisolone-moxifloxacin HCl 1-0.5 % Drops,Suspension 1 drp OPHTHALMIC (EYE) DAILY RF: 0 Discharge Instructions Instructions: Atrial Fibrillation (DC) Stand Alone Forms: Nursing Discharge Form Activity:: Activity as Tolerated Equipment/Supplies:: No Equipment Needed Diet:: As Tolerated Discharge Orders Discharge Orders: Discharge Order (Routine); Ordered 10/27/18 Ordered By: Jamila Padgett Other Ambulatory Orders: Basic Metabolic Panel (Routine) Timeframe: 20181031 Location: None Selected Ordered By: Jamila Padgett NT-proBNP (Routine) Timeframe: 20181031 Location: None Selected Ordered By: Jamila Padgett Prothrombin Time (Routine) Timeframe: 2 Days Location: None Selected Ordered By: Jamila Padgett Exam Narrative Exam Narrative: General: Elderly male, sitting up in chair. Pleasant and co operative, answers questions appropriately. In no acute distress. HEENT: Normocephalic, atraumatic, pupils equal round, EOMI, mucous membranes moist. Neck: Supple, no JVD. Respiratory: Respirations even and unlabored, lung sounds with fine rales to right base, no wheezing. Cardiovascular: Irregular rhythm, no murmur appreciated. GI: Normoactive bowel sounds, abdomen soft, nondistended, nontender on palpation. Extremities: Right elbow and dorsal aspect of right hand with dressings intact. Lower extremities with trace edema bilaterally, R>L. TEDs on bilaterlly. Pedal pulses palpable bilaterally. DS: Data Vitals/I&O Vitals and I&O: Vital Signs Temperature 36.4 C L 10/27/18 03:58 Temperature Source Tympanic 10/27/18 03:58 Pulse 70 10/27/18 07:05 Pulse Rhythm Irregular 10/27/18 07:51 Pulse 99 H 10/23/18 19:46 Respiratory Rate 18 10/27/18 03:58 Respiratory Effort Non-Labored 10/27/18 07:51 Respiratory Depth Normal 10/27/18 07:51 Respiratory Pattern Normal 10/27/18 07:51 Blood Pressure 135/82 10/27/18 03:58 Blood Pressure Mean 106 10/23/18 19:46 Blood Pressure Position Sitting 10/23/18 17:12 Pulse Oximetry 96 10/27/18 03:58 Oxygen Delivery Method Room Air 10/27/18 03:58 Oxygen Flow Rate 0 10/27/18 03:58 Pain Level 0 10/26/18 19:43 Intake & Output 10/26/18 10/26/18 10/27/18 11:59 23:59 11:59 Intake Total 720 / 1210 490 / 1210 Output Total 1075 / 2895 1820 / 2895 820 / 820 Balance -355 / -1685 -1330 / -1685 -820 / -820 Weight 89.2 kg 89.6 kg Intake: IV 10 / 10 Oral 720 / 1200 480 / 1200 Output: Urine 1075 / 2895 1820 / 2895 820 / 820 Other: Urine Color Yellow Yellow Yellow Urine Appearance Clear Clear Clear Urine Odor Normal Stool Size Moderate Stool Characteristics Formed Brown Voiding Methods Toilet Toilet Urinal Urinal Urinal Completed studies during hospitalization [Text1]: 10/23/18: NONCONTRAST HEAD CT: Comparison is made with September,. The CSF density space is seen in the right basal ganglia, not changed from the previous exam. No acute infarct, hemorrhage or mass is seen. There is mild atrophy. There is mild patchiness of the white matter likely reflecting small vessel disease. There is no evidence of skull fracture. There is mucus retention at the floors of both maxillary sinuses. The mastoid air cells appear clear. IMPRESSION: No acute abnormality. CT OF THE CERVICAL SPINE: There is no evidence of a fracture or subluxation. There are degenerative disc changes and facet degenerative changes. There is no prevertebral soft tissue swelling. No pneumothorax is seen at the lung apices. IMPRESSION: Degenerative changes. No acute abnormality. AP AND LATERAL CHEST: Comparison is made with September,. The heart is enlarged. The aorta shows calcification. The lungs appear clear. IMPRESSION: Cardiomegaly. No acute abnormality. 10/24/18: MRI BRAIN: Comparison is made with head CT dated 23 Oct 2018. T2 sagittal, T1, T2, FLAIR, Diffusion and gradient echo axial sequences were performed. There is no evidence of mass, acute infarct or hemorrhage. The ventricles are within normal limits in size. The vascular flow voids appear intact. IMPRESSION: Atrophy and small vessel disease of white matter. No acute abnormality. MRA [facility] [place] CT angiography was performed with multi slice acquisition and multi planar and 3D reconstruction. The exam is mildly limited by patient motion. There is no evidence of vascular occlusion or significant stenosis. No aneurysm is visible. IMPRESSION: Negative MRA of the brain. MRA NECK: CT angiography was performed with multi slice acquisition and multi planar and 3D reconstruction. The exam was somewhat limited by patient motion. There is no evidence of occlusion or significant stenosis. There is no evidence of dissection. Date of study: 10/25/2018 Transthoracic Echocardiography M-mode, complete 2D, complete spectral Doppler, and color Doppler *STUDY CONCLUSIONS* Summary: 1. Left ventricle: The cavity size was normal. Wall thickness was increased in a pattern of mild LVH. Systolic function was at the lower limits of normal. The estimated ejection fraction was 50-55%. The study was not technically sufficient to allow evaluation of LV diastolic dysfunction due to atrial fibrillation. 2. Mitral valve: There was mild to moderate regurgitation. 3. Right ventricle: The cavity size was normal. Wall thickness was normal. Systolic function was normal. 4. Pulmonary arteries: Pulmonary systolic pressure was >= 25mm Hg. 5. Inferior vena cava: The vessel was patent and dilated. The respirophasic diameter changes were blunted (less than 50%), consistent with elevated central venous pressure. Labs on day of discharge: Labs from last 24 hours 10/27/18 10/27/18 10/27/18 07:20 07:20 07:20 WBC 6.61 RBC 4.40 L Hgb 12.8 L Hct 40.0 MCV 90.9 MCH 29.1 MCHC 32.0 RDW 14.7 H Plt Count 199 MPV 11.3 H PT 19.7 H INR 2.0 H Sodium 142 Potassium 4.1 Chloride 104 Carbon Dioxide 29.4 Anion Gap 8.6 BUN 22 H Creatinine 1.27 Estimated GFR/1.73 m2 54.85 Glucose 107 H Calcium 9.0 Magnesium 2.1 Total Bilirubin 0.4 AST 27 ALT 65 H Alkaline Phosphatase 204 H NT-Pro-B Natriuret Pep 3452 H Total Protein 7.5 Albumin 3.2 L PFSH Medical History Cerebrovascular accident (Active 09/25/12) Presumed ischemic left thalamus, balance problems and speech problems 09/25/2012. Chest pain (Resolved) Chronic anticoagulation (Acute) Dementia (Chronic) probable Lewy body dementia (associated w/ tremors, gait instability and visual hallucinations) Glaucoma (Chronic) History of CVA (cerebrovascular accident) (Acute) Hx of smoking (Acute) Hyperlipidemia (Acute) Laceration of thigh, left (Resolved) Paroxysmal A-fib (Acute) Surgical History H/O right knee surgery (Acute) repair after chain saw accident History of phacoemulsification of cataract of both eyes with intraocular lens implantation (Acute) right eye 10/10/2018, left eye 09/26/2018 Family History Father , in his lat 70's Heart disease Colon cancer Mother , in her 80's Stroke Dementia Social History Smoking/Tobacco Use Status: Former Tobacco Use Alcohol Intake: former Drug use: Never Substance use type: does not use 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
--- NOTE | 2018-10-27 17:01 | CMDISCH_ITS ---
LACE Index Scoring Tool - Questions: Length of Stay (in days): 4 - 6 Acuity (Admit via E.D.?): Yes Comorbidities: Dementia E.D. Visits: 2 - Answers: Total Score: 12 Risk of Readmission: High Risk Care Management Discharge Reason for Hospitalization: Dizziness, Rapid Afib, CHF Discharge Plan: Rubén will be discharged to [facility] for a short rehab stay prior to returning to [place] with his sister. He will transport via the facility's wheelchair van. Patient/Family Education Needs: Review discharge instructions, discuss Ask Me Three. Services Needed at Discharge: Longterm Facility ([facility] ), Transportation
== END 2018-10-27 11:10 | disposition skilled nursing facility (03) | DRG 149 ==
LOC: ER 20:30 → MS 10-24 11:19
PROVIDERS: Nurse Practitioner; Admitting Provider Internal Medicine; Emergency Provider Student in an Organized Health Care Education/Training Program; PCP Physician Assistant Medical; Visit Provider Internal Medicine
DX: R42 Dizziness and giddiness (principal); I50.21 Acute systolic (congestive) heart failure; G31.83 Neurocognitive disorder with Lewy bodies; F02.80 Dementia in other diseases classified elsewhere, unspecified severity, without behavioral disturbance, psychotic disturbance, mood disturbance, and anxiety; I48.0 Paroxysmal atrial fibrillation; R79.89 Other specified abnormal findings of blood chemistry; Z79.01 Long term (current) use of anticoagulants; D63.1 Anemia in chronic kidney disease; I69.398 Other sequelae of cerebral infarction; R26.81 Unsteadiness on feet; E78.5 Hyperlipidemia, unspecified; I45.10 Unspecified right bundle-branch block; I34.0 Nonrheumatic mitral (valve) insufficiency; R79.1 Abnormal coagulation profile; T45.516A Underdosing of anticoagulants, initial encounter; G31.9 Degenerative disease of nervous system, unspecified; R25.1 Tremor, unspecified
CPT/HCPCS: 36415; 70544; 70547; 80048; 80053; 85027; 93005; 93306; 97110; 97162; 97530; 99220; 99232; 99233; 99239; 99285; J1650; NC; 70450; 70551; 71046; 72125; 81003; 81015; 82270; 82607; 82728; 83540; 83550; 83735; 83880; 84439; 84443; 84484; 85025; 85610; 93010; 99226; G0378; J1941; J3490; L0172

== ENCOUNTER 2018-11-01 09:59 | Outpatient (CLI) | payer OTHER, SELFPAY ==
[2018-11-01 10:25] LABS: Abs Immature Grans 0.07 k/cumm (0.0-0.09); Absolute Basophil Count 0.01 k/cumm (0.0-0.2); Absolute Eosinophil Count 0.11 k/cumm (0.0-0.7); Absolute Lymphocyte Count 1.66 k/cumm (1.2-3.4); Absolute Neutrophil Count 4.02 k/cumm (1.2-6.7); Basophils % 0.2; Eosinophils % 1.7; HCT 40.6 % (40.0-50.0); HGB 12.6 g/dL (13.5-17.5); Immature Grans % 1.1; Lymphocytes % 26.1; Mean Corpuscular Hemoglobin 28.4 pg (27.0-33.0); Mean Corpuscular Volume 91.4 fL (80-95); Mean Platelet Volume 10.8 fL (8.0-11.0); Monocytes % 7.8; Neutrophils % 63.1; Platelet Count 190 x1000/uL (130-400); RBC 4.44 m/cumm (4.50-6.00); RBC Distribution Width 14.9 % (11.8-14.1); White Blood Cell Count 6.37 k/cumm (4.4-10.8)
[2018-11-01 10:36] LABS: Anion Gap 9.1 mmol/L (3-11); BUN 20 mg/dL (7-18); CO2 28.9 mmol/L (21.0-32.0); CREATININE 1.12 mg/dL (0.70-1.30); Calcium 8.7 mg/dL (8.5-10.1); Chloride 105 mmol/L (98-107); Glucose 119 mg/dL (70-100); Potassium 4.2 mmol/L (3.5-5.1); Sodium 143 mmol/L (136-145)
== END 2018-11-01 10:19 ==
PROVIDERS: PCP Physician Assistant Medical; Visit Provider Family Medicine
DX: D63.8 Anemia in other chronic diseases classified elsewhere (principal); I48.0 Paroxysmal atrial fibrillation; E78.5 Hyperlipidemia, unspecified; Z79.01 Long term (current) use of anticoagulants
CPT/HCPCS: 36415; 80048; 85025

== ENCOUNTER 2019-09-06 21:34 | Emergency (ER) | payer OTHER, SELFPAY ==
--- NOTE | 2019-09-06 21:45 | RT.EKG_ITS ---
APPROVED REPORT Exam: Resting ECG Patient Location: E HR:104 bpm ECG Measurements Heart Rate 104 AXIS [place] [id number] P [id number] QRSd 134 QRS -62 QT 368 T 11 QTc 485 <Conclusion> Atrial fibrillation...V-rate 85-118, irreg A-activity RBBB and LAFB...QRSd >120mS, axis(-40,240) No STEMI, unchanged from prior EKG
[2019-09-06 21:50] VITALS: BP 134/87; PULSE 100; RESP 18; TEMP 37.2; O2SAT 98
--- NOTE | 2019-09-06 21:55 | W.ED.GENAD ---
Discharge Plan Disposition Patient Disposition: HOME Condition: Good Discharge Details Chief Complaint: GenMedical Clinical Impression: Neck pain, Acute kidney injury, Subtherapeutic anticoagulation Primary Care Provider: Josh Rodrigues V ED Provider: Jess Poole Home Meds and New Rx's Prescriptions: Continued warfarin [Coumadin] 5 MG tablet 2.5 mg PO DAILY RF: 0 polyethylene glycol 3350 17 gram Powder In Packet 17 g PO BID Qty: 0 RF: 0 meclizine 25 mg Tablet 25 mg PO TID PRN PRNQty: 0 RF: 0 docusate sodium [Colace] 100 mg Capsule 100 mg PO BID Qty: 0 RF: 0 metoprolol tartrate 25 mg Tablet 12.5 mg PO BID Qty: 0 RF: 0 furosemide 20 mg tablet 40 mg PO BID DIURETIC RF: 0 diphenhydramine-acetaminophen [Tylenol PM Extra Strength] 25-500 mg Tablet PO PRN PRNRF: 0 Discharge Instructions Instructions: Neck Pain (ED) Additional Instructions: Continue to encourage water intake. Please continue the medications prescribed. Your INR was low at 1.4, please contact your primary care to discuss increasing her dosing of warfarin. You do have an acute kidney injury, this typically goes along with dehydration. I would like for you to have your blood work rechecked in a few to be reevaluated by your primary care at the end of the week. Your neck pain is most consistent with a muscle spasm. Please encourage gentle stretching, heat or ice. If you develop fever/chills, weakness, sensation changes, chest pain or other new/worsening symptom please seek care urgently once again. Referrals: Josh Rodrigues V [Primary Care Provider] - Medical Decision Making Patient is a pleasant 79-year-old gentleman presenting today with chief complaint of neck pain. Patient reports he has chronic neck pain associated with a fall. I did review the records, patient was admitted in October 2018 after fall. Patient is in a soft collar. This does appear to be well worn. He denies any recent trauma. No headache. Indicates more in the left side of the neck is area of discomfort. Denies any chest pain or shortness of breath. Denies any GI upset. No incontinence. States that pain may have come on after gardening. However, patient is very vague and seems to be a poor historian with his story changing frequently. Patient does have past medical history of dementia. Patient was brought in by his sister who lives locally. On exam, patient appears to be no acute distress. He does have generalized weakness. No focal deficit noted on exam. He appears dry. Lungs are clear. Patient is tachycardic and irregularly irregular rhythm. Patient does have history of atrial fibrillation. Normal abdominal exam. Patient does have a cervical muscle spasm. Tenderness was elicited over this area with palpation of the left side of the neck. No midline tenderness, no step-off. No suggestion of osteomyelitis. Will consult with family regarding his presentation, I will obtain imaging and baseline labs. Spoke with patients sister. She advised that patietns son contacted her and asked that she evaluated him. Patient requested transport to the hospital. She advised that she also had a very vague discussion. She states that he has had neck brace on x 2-3 weeks after bouncing around in a side by side. No recurrent fall. Spoke with the patients son Paul [phone]. He reports that patient felt that his arteries were tightening up. He advised that he is not sure what this meant. States his father has hx of Lewy body dementia. Son states that he is confused at baseline. States that he always wears his soft collar and has been endorsing neck pain for several years. He to denies any recent trauma. He reports he lives locally, she few houses down from his father but was unable to bring him into contact his aunt who drove him to the hospital. ECG was reviewed by Dr. Trinh. Unchanged from previous, please review his note for further details. Chest x-ray reviewed by radiologist: FINDINGS: Lungs: Low lung volumes. No airspace consolidation. Pleural space: No pleural effusion. No pneumothorax. Heart/Mediastinum: No cardiomegaly. Vasculature: Atherosclerosis. Bones/joints: No acute fracture. Other findings: Mild central interstitial crowding. IMPRESSION: No acute cardiopulmonary pathology. Labs reviewed. CBC is without significant abnormality. INR is subtherapeutic at 1.4. Creatinine is bumped at 1.7. This is elevated for the patient. Patient is receiving a 500 cc bolus. Troponin normal at less than 0.05. UA without significant abnormality. CT reviewed by radiologist: FINDINGS: Brain: There is diffuse cerebral atrophy concordant with the patient's age. Chronic small vessel deep white matter ischemic disease is suggested by areas of patchy white matter low attenuation. No intracranial hemorrhage. No acute large territory CVA. No mass. No acute edema. No acute intracranial abnormality. Ventricles: Normal. No ventriculomegaly. Bones/joints: Unremarkable. No acute fracture. Sinuses: Visualized sinuses are unremarkable. Mild chronic maxillary sinus disease. Mastoid air cells: Visualized mastoid air cells are well aerated. Soft tissues: Unremarkable. IMPRESSION: 1. No acute intracranial abnormality. 2. Atrophy and chronic small vessel deep white matter ischemic disease. 3. Stable since 10/23/2018. FINDINGS: Vertebrae: No acute fracture. Normal alignment. Multilevel severe degenerative disc disease and joint disease. Discs/Spinal canal/Neural foramina: No significant disc protrusion. No severe spinal canal stenosis. No significant neural foraminal narrowing. Discs/Spinal canal/Neural foramina: No significant disc protrusion. No severe spinal canal stenosis. No significant neural foraminal narrowing. Soft tissues: Unremarkable. Lungs: Lung apices are normal. IMPRESSION: 1. Diffuse degenerative cervical spine changes. 2. No fracture or acute dislocation. 3. Stable since 10/23/2018. Discussed this findings with the patient. Also contacted the patient's son, Paul, who is his primary person to contact. At this point, patient does appear dehydrated has an elevated creatinine which I would like to have him rechecked with his primary care the end of the week. His neck pain is most consistent with muscle spasm. I did encourage gentle stretching advised that his soft collar may be limiting his ability to do so and may be increasing his risk associated with muscle spasm. I did encourage water intake. He will continue with medications as previously prescribed. Patient will be discharged home with his son. All of their questions and concerns were addressed. He will return with any new or worsening symptoms. HPI General Mode of arrival: wheelchair. Date/Time Provider Initiated Documentation: 09/06/19 21:36. Limitations to Documentation: altered mental status. Information obtained by: patient, family, RN notes reviewed and old records reviewed. HPI Narrative: Patient is a pleasant 79-year-old gentleman with past medical history for CVA, glaucoma, hyperlipidemia, A. fib, dementia. He was driven in by family member, brought into the ED via wheelchair, with a fairly vague initial complaints. Patient is a poor historian. He is reporting that he has neck pain that is unclear if this is acute or chronic. He denies any fevers or chills. Denies any headache. Denies any chest pain. No shortness of breath. Related Data Home Medications Medication Instructions Recorded Confirmed warfarin [Coumadin] 2.5 mg PO DAILY tab-cap 09/27/17 09/06/19 docusate sodium [Colace] 100 mg PO BID #0 cap 10/27/18 09/06/19 meclizine 25 mg PO TID PRN PRN #0 tab 10/27/18 09/06/19 metoprolol tartrate 12.5 mg PO BID #0 tab 10/27/18 09/06/19 polyethylene glycol 3350 17 g PO BID #0 ea 10/27/18 09/06/19 diphenhydramine-acetaminophen tab PO PRN PRN 09/06/19 [Tylenol PM Extra Strength] furosemide 40 mg PO BID DIURETIC 09/06/19 09/06/19 Previous Rx's Medication Instructions Recorded docusate sodium [Colace] 100 mg PO BID #0 cap 10/27/18 meclizine 25 mg PO TID PRN PRN #0 tab 10/27/18 metoprolol tartrate 12.5 mg PO BID #0 tab 10/27/18 polyethylene glycol 3350 17 g PO BID #0 ea 10/27/18 Allergies Allergy/AdvReac Type Severity Reaction Status Date / Time Penicillins Allergy Unknown long time Unverified 10/23/18 17:26 ago General MISSAEL: 2 Review of Systems Unobtainable due to mental condition [facility] Medical History Cerebrovascular accident (Active 09/25/12) Presumed ischemic left thalamus, balance problems and speech problems 09/25/2012. Chest pain (Resolved) Chronic anticoagulation (Acute) Dementia (Chronic) probable Lewy body dementia (associated w/ tremors, gait instability and visual hallucinations) Glaucoma (Chronic) History of CVA (cerebrovascular accident) (Acute) Hx of smoking (Acute) Hyperlipidemia (Acute) Laceration of thigh, left (Resolved) Paroxysmal A-fib (Acute) Surgical History H/O right knee surgery (Acute) repair after chain saw accident History of phacoemulsification of cataract of both eyes with intraocular lens implantation (Acute) right eye 10/10/2018, left eye 09/26/2018 Social History Smoking/Tobacco Use Status: Former Tobacco Use Alcohol Intake: former Drug use: Never Substance use type: does not use 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[place], [place] Do you feel safe at home: Yes Do you feel safe in your relationship?: Yes Exam Const General: cooperative, healthy appearing, comfortable, no acute distress and well developed Nutritional Appearance: average body habitus and well nourished Orientation: alert, awake, oriented x3 and confused (very vague, story changes) [facility] Head: normal to inspection, no palpable skull fracture, normocephalic and atraumatic Ears: hearing grossly normal bilaterally Face and sinus: normal facial exam Mouth: oral mucosae normal, lip normal, tongue normal and moist mucous membranes Teeth and gingiva: dentition normal and dentures Throat: posterior oropharynx normal Eyes General: appearance normal, both eyes and all related structures Visual Castillo: normal visual castillo by confrontation Alignment and Position: alignment normal and position normal Periorbital: periorbital findings normal Pupils: PERRL EOM: EOM intact bilaterally Neck Neck: not normal to visual inspection (patient in soft collar), limited ROM (full flexion and rotation. Limited extension), no lymphadenopathy, no meningeal signs, trachea midline, supple, no anterior neck swelling, no lymphadenopathy noted and no midline deformity Chest Chest: normal inspection of the chest, normal palpation of entire chest wall and no crepitus Resp Effort & Inspection: normal respiratory effort, able to speak in complete sentences and no respiratory distress Auscultation: clear to auscultation bilaterally, no rales, no rhonchi and no wheezes Cardio Rate: tachycardic Rhythm: abnormal rhythm irregularly irregular Heart Sounds: S1 normal, S2 normal and murmur GI Inspection: normal to inspection, no edema and non-distended Palpation: soft, no hepatosplenomegaly, not firm, no guarding, not rigid and nontender Auscultation: normal bowel sounds Back/Spine/Pelvis Back: no CVA tenderness Cervical Spine: No normal cervical lordosis, No cervical ROM normal, No loss of normal cervical lordosis, cervical muscular tenderness, pain with cervical ROM, cervical spasm, No cervical spinal tenderness and No step off deformity Thoracic/Lumbar Spine: thoracic and lumbar spine normal to inspection, thoraco-lumbar ROM normal, No thoracic spinal tenderness, No lumbar spinal tenderness and No straight leg raise positive Pelvis: no pain with anterior-posterior compression and no pain with lateral compression Skin General skin exam: no rashes or lesions noted Trauma: no lacerations or abrasions Neuro General: patient alert, patient awake and patient oriented x3 Cognition: normal cognition Speech: speech normal Gait: normal gait Motor: muscle tone normal throughout, strength 5/5 throughout, no pronator drift, no movement abnormalities noted and no fasciculations Sensory Exam: no sensory deficits noted (No saddle paresthesias) Extrem General: normal to inspection, capillary refill normal, no calf tenderness, no calf tenderness bilaterally, edema Laterality: bilateral, pedal edema and other (2+ distal pulses) Right upper extremity: normal to inspection Left upper extremity: normal to inspection Right lower extremity: edema Left lower extremity: edema Psych Appearance: grossly normal and disheveled Mental Status: mental status grossly normal Speech and Movement: speech and movement normal
--- NOTE | 2019-09-06 22:00 | DI.CT_ITS ---
EXAM: CT HEAD CERVICAL SPINE WO CLINICAL HISTORY: confusion, neck pain TECHNIQUE: COMPARISON: CT CT HEAD CERVICAL SPINE WO from 10/23/2018 FINDINGS: CT examination of the cervical spine was performed without contrast administration. There is a moder ate cervical kyphosis. There are moderate degenerative changes throughout the cervical spine. There is no evidence of acute fracture or dislocation. Visualized lung apices are clear. No cervical mass or adenopathy. Tracheolaryngeal structures appea r intact. Noncontrast cranial CT was performed. There is moderate generalized cerebral atrophy. There are mil d periventricular areas of decreased attenuation consistent with microvascular ischemic change. Ther e is no evidence of acute intracranial hemorrhage, mass effect, or midline shift. No calvarial fracture seen. Mastoid air cells are predominantly clear with minimal fluid and few lef t mastoid air cells without evidence bony erosion or sclerosis. Visualized paranasal sinuses are pre dominantly clear. IMPRESSION: No evidence of acute cervical spine injury. No evidence of acute intracranial abnormality.
[2019-09-06 22:15] LABS: Bilirubin Negative (Negative); Blood Negative (Negative); Clarity Clear (Clear); Glucose Negative (Negative); Ketones Negative (Negative); Leukocyte Esterase Negative (Negative); Nitrite Negative (Negative); pH 6.5 (5-8)
[2019-09-06 22:48] LABS: Lactate 1.2 mmol/L (0.6-1.4)
[2019-09-06 22:52] LABS: Abs Immature Grans 0.07 k/cumm (0.0-0.09); Absolute Eosinophil Count 0.02 k/cumm (0.0-0.7); Absolute Lymphocyte Count 1.38 k/cumm (1.2-3.4); Absolute Monocyte Count 1.01 k/cumm (0.11-0.7); Absolute Neutrophil Count 7.17 k/cumm (1.2-6.7); Eosinophils % 0.2; HCT 41.5 % (40.0-50.0); HGB 13.6 g/dL (13.5-17.5); Immature Grans % 0.7 %; Lymphocytes % 14.3; Mean Corp. HGB Concentration 32.8 g/dL (32.0-36.0); Mean Corpuscular Hemoglobin 28.9 pg (27.0-33.0); Mean Corpuscular Volume 88.1 fL (80-95); Mean Platelet Volume 10.2 fL (8.0-11.0); Monocytes % 10.5; Neutrophils % 74.3; Platelet Count 185 x1000/uL (130-400); RBC 4.71 m/cumm (4.50-6.00); RBC Distribution Width 14.5 % (11.8-14.1); White Blood Cell Count 9.65 k/cumm (4.4-10.8)
[2019-09-06 23:05] LABS: ALT 28 U/L (16-63); AST 23 U/L (15-37); Albumin 3.6 g/dL (3.4-5.0); Alkaline Phosphatase 81 U/L (46-116); Anion Gap 6.6 mmol/L (3-11); BUN 31 mg/dL (7-18); Bilirubin, Total 0.8 mg/dL (0.2-1.0); CO2 30.4 mmol/L (21.0-32.0); CREATININE 1.71 mg/dL (0.70-1.30); Chloride 101 mmol/L (98-107); Estimated GFR 38.81 (mL/min/1.73m2); Glucose 134 mg/dL (74-106); INR 1.4 (0.9-1.1); Magnesium 2.1 mg/dL (1.8-2.4); Potassium 3.6 mmol/L (3.5-5.1); Prothrombin Time 13.8 sec (9.3-11.0); Sodium 138 mmol/L (136-145); Total Protein 7.4 g/dL (6.4-8.2)
[2019-09-06 23:06] LABS: Troponin I < 0.05 ng/mL (<0.06)
--- NOTE | 2019-09-06 23:18 | DI.RAD_ITS ---
EXAM: XR CHEST 2V PA LATERAL CLINICAL HISTORY: weakness TECHNIQUE: COMPARISON: CR XR CHEST 2V PA LATERAL from 10/23/2018 FINDINGS: Heart is enlarged. There are streaky retrocardiac radiodensities which were not present on prior rosi st film of October 2018. Findings are suspicious for left lower lobe pneumonia in the appropriate clinical setting. Otherwise lungs appear clear. No pleural effusion. IMPRESSION: Suspect left lower lobe pneumonia. Please correlate clinically.
[2019-09-06 23:29] VITALS: BP 122/77; PULSE 95; RESP 18; TEMP 36.9; O2SAT 100
--- NOTE | 2019-09-06 23:33 | DI.VRAD_ITS ---
PROCEDURE INFORMATION: Exam: XR Chest, 2 Views Exam date and time: 09/06/2019 23:16 Age: 79 years old Clinical indication: Other: Weakness, confusion TECHNIQUE: Imaging protocol: XR of the chest Views: 2 views. COMPARISON: CR XR CHEST 2V PA LATERAL 10/23/2018 20:02 FINDINGS: Lungs: Low lung volumes. No airspace consolidation. Pleural space: No pleural effusion. No pneumothorax. Heart/Mediastinum: No cardiomegaly. Vasculature: Atherosclerosis. Bones/joints: No acute fracture. Other findings: Mild central interstitial crowding. IMPRESSION: No acute cardiopulmonary pathology. Dictated and Authenticated by: Kristi Rose MD. Ordering:TYLER Mercado MD
[2019-09-06] MEDS: Lactated Ringers 500 ML IV (23:38)
--- NOTE | 2019-09-07 00:10 | DI.VRAD_ITS ---
PROCEDURE INFORMATION: Exam: CT Head Without Contrast Exam date and time: 09/06/2019 10:05 PM Age: 79 years old Clinical indication: Other: Confusion, neck pain TECHNIQUE: Imaging protocol: Computed tomography of the head without contrast. COMPARISON: CT HEAD CERVICAL SPINE WO 10/23/2018 6:12 PM FINDINGS: Brain: There is diffuse cerebral atrophy concordant with the patient's age. Chronic small vessel deep white matter ischemic disease is suggested by areas of patchy white matter low attenuation. No intracranial hemorrhage. No acute large territory CVA. No mass. No acute edema. No acute intracranial abnormality. Ventricles: Normal. No ventriculomegaly. Bones/joints: Unremarkable. No acute fracture. Sinuses: Visualized sinuses are unremarkable. Mild chronic maxillary sinus disease. Mastoid air cells: Visualized mastoid air cells are well aerated. Soft tissues: Unremarkable. IMPRESSION: 1. No acute intracranial abnormality. 2. Atrophy and chronic small vessel deep white matter ischemic disease. 3. Stable since 10/23/2018. PROCEDURE INFORMATION: Exam: CT Cervical Spine Without Contrast Exam date and time: 09/06/2019 10:05 PM Age: 79 years old Clinical indication: Other: Confusion, neck pain TECHNIQUE: Imaging protocol: Computed tomography images of the cervical spine without contrast. COMPARISON: CT HEAD CERVICAL SPINE WO 10/23/2018 6:12 PM FINDINGS: Vertebrae: No acute fracture. Normal alignment. Multilevel severe degenerative disc disease and joint disease. Discs/Spinal canal/Neural foramina: No significant disc protrusion. No severe spinal canal stenosis. No significant neural foraminal narrowing. Discs/Spinal canal/Neural foramina: No significant disc protrusion. No severe spinal canal stenosis. No significant neural foraminal narrowing. Soft tissues: Unremarkable. Lungs: Lung apices are normal. IMPRESSION: 1. Diffuse degenerative cervical spine changes. 2. No fracture or acute dislocation. 3. Stable since 10/23/2018. Dictated and Authenticated by: Zheng Yi MD. Ordering:TYLER Mercado MD
[2019-09-07 01:15] VITALS: BP 130/76; PULSE 96; RESP 16; O2SAT 100
--- NOTE | 2019-09-07 08:42 | NUR.NOTE ---
Nursing Note: Referral for follow up faxed to PCP. MD note, xray reports,and labs also sent. Katiana Shea. [facility] [phone]
== END 2019-09-07 01:13 | disposition home or self-care (01) ==
PROVIDERS: Emergency Provider Physician Assistant; PCP Physician Assistant Medical
DX: M62.838 Other muscle spasm (principal); N17.9 Acute kidney failure, unspecified; E86.0 Dehydration; R79.1 Abnormal coagulation profile; M54.2 Cervicalgia; G89.29 Other chronic pain; R53.1 Weakness; G31.83 Neurocognitive disorder with Lewy bodies; F02.80 Dementia in other diseases classified elsewhere, unspecified severity, without behavioral disturbance, psychotic disturbance, mood disturbance, and anxiety; Z79.01 Long term (current) use of anticoagulants; I48.91 Unspecified atrial fibrillation
CPT/HCPCS: 36415; 80053; 93005; 96360; 99285; 70450; 71046; 72125; 81003; 83605; 83735; 84484; 85025; 85610; 85730; 93010; 99284

== ENCOUNTER 2019-11-09 14:34 | Outpatient (REF) | payer OTHER, SELFPAY ==
[2019-11-09 19:33] LABS: HCT 40.7 % (40.0-50.0); HGB 12.8 g/dL (13.5-17.5); MCH 28.1 pg (27.0-33.0); MCHC 31.4 % (32.0-36.0); MCV 89.3 fL (80-95); MPV 11.5 fL (8.0-11.0); Platelet Count 204 10^3/uL (130-400); RBC 4.56 10^6/uL (4.36-5.78); RDW 14.7 % (11.8-14.1); RDW-SD 47.9 fL; WBC 5.38 10^3/uL (4.4-10.8)
[2019-11-09 19:49] LABS: ALT 22 U/L (16-63); AST 19 U/L (15-37); Albumin 3.7 g/dL (3.4-5.0); Alkaline Phosphatase 73 U/L (46-116); Anion Gap 6.5 mmol/L (3-11); BUN 20 mg/dL (7-18); Bilirubin, Total 0.7 mg/dL (0.2-1.0); CO2 31.5 mmol/L (21.0-32.0); Calcium 8.9 mg/dL (8.5-10.1); Chloride 103 mmol/L (98-107); Glucose 99 mg/dL (74-106); Potassium 4.3 mmol/L (3.5-5.1); Sodium 141 mmol/L (136-145); Total Protein 6.6 g/dL (6.4-8.2)
== END 2019-11-09 14:54 ==
LOC: NCHCN 14:34
PROVIDERS: PCP Physician Assistant Medical; Visit Provider Internal Medicine
DX: D64.9 Anemia, unspecified (principal); I48.0 Paroxysmal atrial fibrillation
CPT/HCPCS: 80053; 85027

== ENCOUNTER 2020-03-13 15:25 | Inpatient (IN) | payer OTHER, SELFPAY ==
[2020-03-13] VITALS (10 sets, daily range): BP systolic 118–141; BP diastolic 72–108; PULSE 88–125; RESP 17–26; TEMP 36.3–36.8; O2SAT 93–98
--- NOTE | 2020-03-13 16:00 | DI.CT_ITS ---
EXAM: CT HEAD CERVICAL SPINE WO CLINICAL HISTORY: Fall, on Blood thinners. TECHNIQUE: Imaging Protocol: Axial computed tomography images with coronal and sagittal reformatted images were created and reviewed COMPARISON: CT CT HEAD CERVICAL SPINE WO from 09/06/2019 FINDINGS: CT Head: Ventricles and Extra axial spaces: Normal in size and morphology for the patient's age. Hemorrhage: None. Cerebral parenchyma: There are areas of decreased attenuation in the white matter consistent with sma ll vessel ischemic disease. No evidence of an acute territorial infarct. No mass effect. Midline shift: None. Brainstem/Cerebellum: Normal. Calvarium: Normal. Visualized Paranasal sinuses/Mastoids: Mild chronic paranasal sinus disease. No fluid levels. Soft Tissues: Unremarkable. CT Cervical Spine: Bones: No acute fracture or subluxation. There is reversal of the normal cervical lordosis which is l ikely chronic. Degenerative changes and facet arthropathy are seen throughout the cervical spine. Soft Tissues: Unremarkable. Lung Apices: Clear. IMPRESSION: 1. No acute intracranial process. 2. No acute fracture or subluxation in the cervical spine. RADIATION DOSE DELIVERED: 1,618.14mGy.cm Total DLP DATA REPOSITORY: All CT scans at this facility are submitted to the National Radiology Data Registry (NRDR) Dose Index Registry (DIR) with the [employer] (ACR). RADIATION OPTIMIZATION: All CT scans at this facility use at least one of these dose optimization te chniques: automated exposure control; mA and/or kV adjustment per patient size (includes targeted exa ms where dose is matched to clinical indication); or iterative reconstruction.
--- NOTE | 2020-03-13 16:00 | DI.CT_ITS ---
EXAM: CT CHEST/ABD/PEL W CLINICAL HISTORY: Fall, Right rib pain TECHNIQUE: Imaging Protocol: Axial computed tomography images with coronal and sagittal reformatted images were created and reviewed CONTRAST MATERIAL: Intravenous: Omnipaque 350 Contrast volume:100 mL Oral: No COMPARISON: No exams were available for comparison FINDINGS: The examination is limited due to patient motion artifact. CHEST: Tracheobronchial tree: Patent where visualized. Pulmonary parenchyma: Bilateral basilar infiltrates. The may represent atelectasis. Pneumonia canno t be excluded. No architectural distortion. Visualized thyroid gland: Unremarkable. Mediastinum and Laureen: No dominant adenopathy or fluid collection. Pleura: Small right pleural effusion. No pneumothorax. Heart: Cardiomegaly. Moderate coronary artery calcification. No pericardial effusion. Aorta: Thoracic aorta non-dilated. Atherosclerosis. Lymph nodes: Within normal limits. Soft tissues: Unremarkable. Bones:There are acute mildly displaced fractures of the lateral aspects of the right 8th, 9th and 10t h ribs.Nondisplaced fractures of the posterior aspects of the right 10th 11th and 12th ribs. ABDOMEN: Liver: Normal density. No measurable mass. Portal, Superior Mesenteric, and Splenic Veins: Unremarkable. Gallbladder and Biliary Tract: Cholelithiasis. No biliary ductal dilatation. Pancreas: Normal density, no abnormal calcifications or inflammatory process. Spleen: Normal. Adrenals: No masses seen. Kidneys: Normal size, contour and axis. No radiodense stones or obstructive uropathy. No masses seen. Note is made of a retroaortic left renal vein. Abdominal Aorta: Abdominal portion non-dilated. Atherosclerosis. Bowel: No obstruction or bowel wall thickening. No evidence of appendicitis. Peritoneal Cavity: No ascites, collection or mesenteric inflammatory response. No free air. Lymph Nodes: Within normal limits. Bones: No acute fracture. Soft Tissues: Unremarkable. PELVIS: Bladder: Symmetric distention, no gross wall thickening. Reproductive Organs: Enlarged prostate gland. Lymph Nodes: Within normal limits. Bones: No acute fracture. IMPRESSION: 1. No acute abdominal or pelvic organ injury. 2. No abdominal or pelvic fracture. 3. Multiple posterior and lateral right rib fractures. No pneumothorax. 4. Small right pleural effusion with subjacent atelectasis. 5. Cardiomegaly. RADIATION DOSE DELIVERED: 1,385.24mGy.cm Total DLP DATA REPOSITORY: All CT scans at this facility are submitted to the National Radiology Data Registry (NRDR) Dose Index Registry (DIR) with the [employer] (ACR). RADIATION OPTIMIZATION: All CT scans at this facility use at least one of these dose optimization te chniques: automated exposure control; mA and/or kV adjustment per patient size (includes targeted exa ms where dose is matched to clinical indication); or iterative reconstruction.
--- NOTE | 2020-03-13 16:07 | ED.GENADUL_ITS ---
Discharge Plan Disposition Patient Disposition: [facility] INPATIENT Condition: Stable Discharge Details Clinical Impression: Multiple fractures of ribs of right side, Pleural effusion on right Primary Care Provider: Chyna Beltran ED Provider: Ainsley Mccullough Home Meds and New Rx's Prescriptions: No Action Xarelto 20 mg Tablet 20 mg PO DAILY RF: 0 meclizine 25 mg Tablet 25 mg PO TID PRN PRNQty: 0 RF: 0 docusate sodium [Colace] 100 mg Capsule 100 mg PO BID Qty: 0 RF: 0 metoprolol tartrate 25 mg Tablet 12.5 mg PO BID Qty: 0 RF: 0 furosemide 20 mg tablet 20 mg PO BID DIURETIC RF: 0 diphenhydramine-acetaminophen [Tylenol PM Extra Strength] 25-500 mg Tablet PO PRN PRNRF: 0 Medical Decision Making 79-year-old male presents to the ED via EMS status post fall at approximately 730 this morning. The fall was witnessed by his caregiver his daughter who is in the room. She states that he fell onto his right side hitting a wooden space heater. He is complaining of head, neck, right rib pain. He is on Xarelto daily. He does have a history of CVA, DVT, high cholesterol, glaucoma, anemia, Lewy body dementia. Daughter states that he has had decreased ambulation since the event, he was given 2 Tylenol prior to arrival. She is also concerned for possible urinary tract infection. Labs are largely within normal limits, potassium is slightly low at 3.4, sodium 136, BUN is 19, creatinine 1.0 GFR is greater than 60. Glucose is 118, albumin 3.3 urinalysis is within normal limits no leukocytes no nitrites. Exam: CT Abdomen And Pelvis With Contrast IMPRESSION: 1. No acute solid or hollow viscus injury in the abdomen or pelvis. 2. Multiple large calcified gallstones. No CT evidence of acute cholecystitis. 3. No acute osseous injury in the abdomen or pelvis. 4. Hepatic congestion related to chronic heart failure. CT Chest With Contrast; Diagnostic FINDINGS: Lungs: Lingular and left lower lobe atelectasis versus pulmonary edema. No focal consolidation. No large pulmonary nodule. Pleural space: Small layering right pleural effusion. Adjacent subsegmental atelectasis. No pneumothorax. No left pleural effusion. Heart: Mild cardiomegaly. Aorta: Unremarkable. No aortic aneurysm. No retrosternal hematoma. Lymph nodes: No lymphadenopathy. Bones/joints: Acute posterior right 12th rib fracture and posterior right 10th rib fracture. Comminuted and minimally displaced lateral right 8th through 10th rib fractures. Adjacent associated edema and small hematoma adjacent to the fractures. Pockets of interosseous gas in the associated rib interspaces. Old healed medial right 12th rib fracture. Soft tissues: Incidental note made of bilateral gynecomastia. IMPRESSION: 1. Multiple right lower lateral and posterior rib fractures with adjacent small reactive right pleural effusion. No pneumothorax. JOSEPHINECHYNA COVINGTON Preliminary Radiology Report Page 2 of 3 2. Cardiomegaly. Bilateral lower lobe parenchymal finding suggestive of atelectasis. However superimposed interstitial pulmonary edema cannot be excluded. Exam: CT Cervical Spine Without Contrast IMPRESSION: No fracture or dislocation Exam: CT Head Without Contrast IMPRESSION: 1. No evidence of fracture. No evidence of acute intracranial bleed. 2. Chronic ischemic changes bilaterally. Discussed CT results with daughter who verbalized understanding. Patient standing up with a walker. He is unable to take any steps at this time daughter is requesting admission due to difficulty of getting patient into the home and be able to care for him appropriately by herself at this time. Patient required full assistance to get back into bed, he is confused at this time and not following instructions. Daughter states that he does get more confused at night and that he has not been sleeping which makes it worse. Patient is at higher risk for complications due to the rib fractures there is 4 posterior rib fractures on the right side with pleural effusion. I will discuss patient case in details with Dr. Troncoso who is on for hospitalist at this time. 2020: Patient attempting to crawl out of bed, he is wrapping his legs around the side rail. We did reposition him back in bed. Radiologist read noted below CHEST: Tracheobronchial tree: Patent where visualized. Pulmonary parenchyma: Bilateral basilar infiltrates. The may represent atelectasis. Pneumonia cannot be excluded. No architectural distortion. Visualized thyroid gland: Unremarkable. Mediastinum and Laureen: No dominant adenopathy or fluid collection. Pleura: Small right pleural effusion. No pneumothorax. Heart: Cardiomegaly. Moderate coronary artery calcification. No pericardial effusion. Aorta: Thoracic aorta non-dilated. Atherosclerosis. Lymph nodes: Within normal limits. Soft tissues: Unremarkable. Bones:There are acute mildly displaced fractures of the lateral aspects of the right 8th, 9th and 10th ribs.Nondisplaced fractures of the posterior aspects of the right 10th 11th and 12th ribs. 2046: Haldol 2mg IV ordered and NS infusion for increased confusion appears to be sundowners insomnia and sleep. Dr. Troncoso at bedside for eval. 2209: Patient sleeping after receiving Haldol 2mg, pending bed assignment and admission. HPI General Mode of arrival: EMS . Date/Time Provider Initiated Documentation: 03/13/20 15:29 . Limitations to Documentation: language barrier and physical limitation (Parkinson's) . Information obtained by: family (Daughter) and EMS . HPI Narrative: 79-year-old male presents to the ED via EMS status post fall at approximately 730 this morning. The fall was witnessed by his caregiver his daughter who is in the room. She states that he fell onto his right side hitting a wooden space heater. He is complaining of head, neck, right rib pain. He is on Xarelto daily. He does have a history of CVA, DVT, glaucoma, anemia, Parkinson's and dementia. Daughter states that he has had decreased ambulation since the event, he was given 2 Tylenol prior to arrival. She is also concerned for possible urinary tract infection. Related Data Home Medications Medication Instructions Recorded Confirmed docusate sodium [Colace] 100 mg PO BID #0 cap 10/27/18 09/06/19 meclizine 25 mg PO TID PRN PRN #0 tab 10/27/18 09/06/19 metoprolol tartrate 12.5 mg PO BID #0 tab 10/27/18 03/13/20 diphenhydramine-acetaminophen tab PO PRN PRN 09/06/19 [Tylenol PM Extra Strength] furosemide 20 mg PO BID DIURETIC 09/06/19 03/13/20 rivaroxaban [Xarelto] 20 mg PO DAILY 03/13/20 03/13/20 Previous Rx's Medication Instructions Recorded docusate sodium [Colace] 100 mg PO BID #0 cap 10/27/18 meclizine 25 mg PO TID PRN PRN #0 tab 10/27/18 metoprolol tartrate 12.5 mg PO BID #0 tab 10/27/18 Allergies Allergy/AdvReac Type Severity Reaction Status Date / Time Penicillins Allergy Unknown long time Unverified 10/23/18 17:26 ago General Stated Complaint: Trauma MISSAEL: 3 Review of Systems Unobtainable due to mental status (History supplied by daughter who is also his caregiver) [facility] Medical History Cerebrovascular accident (09/25/12) Presumed ischemic left thalamus, balance problems and speech problems 09/25/2012. Chest pain Chronic anticoagulation Dementia probable Lewy body dementia (associated w/ tremors, gait instability and visual hallucinations) Glaucoma History of CVA (cerebrovascular accident) Hx of smoking Hyperlipidemia Laceration of thigh, left Paroxysmal A-fib Surgical History H/O right knee surgery repair after chain saw accident History of phacoemulsification of cataract of both eyes with intraocular lens implantation right eye 10/10/2018, left eye 09/26/2018 Family History Father , in his lat 70's Heart disease Colon cancer Mother , in her 80's Stroke Dementia Social History Smoking/Tobacco Use Status: Former Tobacco Use Quit Date: 02/22/69 Smoking risk assessment performed?: Yes Alcohol Intake: former Drug use: Never Substance use type: does not use 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 Appears stated age. Normal body habitus. Head: Normocephalic, no trauma. Eyes: Pupils PERRLA, Red reflex noted, EOM's intact. Eyelids symmetrical without lesions, discharge, or swelling. ENT: Bilateral TM's WNL, External ear normal to inspection, no hemotympanum bilaterally, no mastoid TTP, swelling, or erythema, Nasal turbinates WNL, no septal hematoma, no nasal discharge. Normal dentition, Posterior pharynx WNL, no exudate. Chest: RRR, Normal S1, S2, distal pulses intact. Resp: Lungs clear to auscultation bilaterally, no wheezes, rales, or rhonchi. Abdomen: Soft, nontender to palpation but all 4 quadrants. 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 Skin: Capillary refill less than 2 sec. bilateral lower extremities peripheral vascular disease appears chronic. No pitting edema. Neurologic: Cranial nerves II-XII intact. Alert and oriented x 3. DTR's intact. Hematologic/Lymphatic: No ecchymosis, no lymphadenopathy. Course Vital Signs Vital signs: Vital Signs Temperature 36.8 C 03/13/20 15:22 Pulse 88 03/13/20 15:22 Respiratory Rate 20 03/13/20 15:22 Blood Pressure 132/72 03/13/20 15:22 Pulse Oximetry 93 03/13/20 15:22 Temperature 36.8 C 03/13/20 15:22 Temperature Source Skin 03/13/20 15:22 Pulse 88 03/13/20 15:22 Respiratory Rate 20 03/13/20 15:22 Respiratory Effort 03/13/20 15:46 Respiratory Depth Normal 03/13/20 15:46 Respiratory Pattern Normal 03/13/20 15:46 Blood Pressure 132/72 03/13/20 15:22 Blood Pressure Position Supine 03/13/20 15:22 Pulse Oximetry 93 03/13/20 15:22 Oxygen Delivery Method Room Air 03/13/20 15:22 Oxygen Flow Rate 0 03/13/20 15:22
[2020-03-13] MEDS: Normal Saline 1,000 ML 150 ML IV ×2 (16:27→23:20)
[2020-03-13 16:31] LABS: Abs Immature Grans 0.26 10^3/uL (0.0-0.06); Absolute Basophil Count 0.01 10^3/uL (0.0-0.2); Absolute Eosinophil Count 0.03 10^3/uL (0.0-0.7); Absolute Lymphocyte Count 0.82 10^3/uL (1.2-3.4); Absolute Monocyte Count 0.95 10^3/uL (0.1-0.8); Absolute Neutrophil Count 5.29 10^3/uL (1.2-6.7); Basophils % 0.1; Eosinophils % 0.4; HCT 35.2 % (40.0-50.0); HGB 11.5 g/dL (13.5-17.5); Immature Grans % 3.5; Lymphocytes % 11.1; MCH 29.5 pg (27.0-33.0); MCHC 32.7 % (32.0-36.0); MCV 90.3 fL (80-95); MPV 10.3 fL (8.0-11.0); Monocytes % 12.9; Nucleated RBC 0 %; Platelet Count 201 10^3/uL (130-400); RDW 14.4 % (11.8-14.1); RDW-SD 47.5 fL; WBC 7.36 10^3/uL (4.4-10.8)
[2020-03-13 16:42] LABS: ALT 19 U/L (16-63); AST 17 U/L (15-37); Albumin 3.3 g/dL (3.4-5.0); Alkaline Phosphatase 78 U/L (46-116); Anion Gap 7.9 mmol/L (3-11); BUN 19 mg/dL (7-18); Bilirubin, Total 0.9 mg/dL (0.2-1.0); CO2 26.1 mmol/L (21.0-32.0); Calcium 8.4 mg/dL (8.5-10.1); Chloride 102 mmol/L (98-107); Glucose 118 mg/dL (74-106); Potassium 3.4 mmol/L (3.5-5.1); Sodium 136 mmol/L (136-145); Total Protein 6.7 g/dL (6.4-8.2)
[2020-03-13 16:43] LABS: Troponin I < 0.05 ng/mL (<0.06)
[2020-03-13] MEDS: MORPHine 10 MG/ML VIAL 2 MG IVP (16:48)
[2020-03-13] MEDS: Omnipaque 350 MG/ML 100 ML BTL IJ (17:49)
[2020-03-13] MEDS: Normal Saline Flush 10 ML SYR IVP (17:49)
[2020-03-13] MEDS: Normal Saline - Diluent 50 ML VIAL IV (17:50)
--- NOTE | 2020-03-13 18:02 | DI.VRAD_ITS ---
PROCEDURE INFORMATION: Exam: CT Head Without Contrast Exam date and time: 03/13/2020 4:08 PM Age: 79 years old Clinical indication: Other: Fall, on blood thinners TECHNIQUE: Imaging protocol: Computed tomography of the head without contrast. COMPARISON: CT HEAD CERVICAL SPINE WO 09/06/2019 11:09 PM FINDINGS: Brain: There are areas of diminished density in the white matter bilaterally consistent with chronic small vessel ischemic changes. Luevano-white matter differentiation is intact and unremarkable. No mass lesion. No acute intracranial hemorrhage. Luevano/white matter differentiation is unremarkable. Cisterns are unremarkable. Brainstem is unremarkable. No suprasellar mass. No mass lesion. No mass effect. Thalamus and hypothalamus are unremarkable. Cerebellum is unremarkable. Cerebral ventricles: No ventriculomegaly. Bones/joints: No evidence of fracture. Paranasal sinuses: Visualized sinuses are unremarkable. No fluid levels. Mastoid air cells: Visualized mastoid air cells are well aerated. Orbital cavity: Orbits are unremarkable. No orbital hematoma. No mass lesion. No proptosis. Oculomotor muscles and optic nerves are unremarkable. Orbital globes are intact. No evidence of globe rupture. Soft tissues: Unremarkable. IMPRESSION: 1. No evidence of fracture. No evidence of acute intracranial bleed. 2. Chronic ischemic changes bilaterally. PROCEDURE INFORMATION: Exam: CT Cervical Spine Without Contrast Exam date and time: 03/13/2020 4:08 PM Age: 79 years old Clinical indication: Other: Fall, on blood thinners TECHNIQUE: Imaging protocol: Computed tomography images of the cervical spine without contrast. COMPARISON: CT HEAD CERVICAL SPINE WO 09/06/2019 11:09 PM FINDINGS: Bones/joints: Reveals are of normal lordotic curvature which appears chronic. Degenerative disc disease and facet arthropathy is seen throughout cervical spine. Mild scoliosis in cervical spine which appears to be centered at C1 level. No fracture or dislocation. Discs/Spinal canal/Neural foramina: No disc protrusion or extrusion. Lungs: Lung apices are normal. Soft tissues: Unremarkable. IMPRESSION: No fracture or dislocation. Dictated and Authenticated by: Alexandra Boothe MD. Ordering:LOREN Schmitz MD
[2020-03-13 18:20] LABS: Bilirubin Negative (Negative); Blood Negative (Negative); Clarity Clear (Clear); Glucose Negative (Negative); Ketones Negative (Negative); Leukocyte Esterase Negative (Negative); Nitrite Negative (Negative); Urobilinogen 0.2 EU/dL (Up TO 0.2); pH 5.5 (5-8)
--- NOTE | 2020-03-13 18:20 | DI.VRAD_ITS ---
PROCEDURE INFORMATION: Exam: CT Chest With Contrast; Diagnostic Exam date and time: 03/13/2020 4:08 PM Age: 79 years old Clinical indication: Other: Fall, right rib pain TECHNIQUE: Imaging protocol: Diagnostic computed tomography of the chest with intravenous contrast. Contrast material: OMNIPAQUE 350; Contrast volume: 100 ml; Contrast route: INTRAVENOUS (IV); COMPARISON: CR XR CHEST 2V PA LATERAL 09/06/2019 11:17 PM FINDINGS: Lungs: Lingular and left lower lobe atelectasis versus pulmonary edema. No focal consolidation. No large pulmonary nodule. Pleural space: Small layering right pleural effusion. Adjacent subsegmental atelectasis. No pneumothorax. No left pleural effusion. Heart: Mild cardiomegaly. Aorta: Unremarkable. No aortic aneurysm. No retrosternal hematoma. Lymph nodes: No lymphadenopathy. Bones/joints: Acute posterior right 12th rib fracture and posterior right 10th rib fracture. Comminuted and minimally displaced lateral right 8th through 10th rib fractures. Adjacent associated edema and small hematoma adjacent to the fractures. Pockets of interosseous gas in the associated rib interspaces. Old healed medial right 12th rib fracture. Soft tissues: Incidental note made of bilateral gynecomastia. IMPRESSION: 1. Multiple right lower lateral and posterior rib fractures with adjacent small reactive right pleural effusion. No pneumothorax. 2. Cardiomegaly. Bilateral lower lobe parenchymal finding suggestive of atelectasis. However superimposed interstitial pulmonary edema cannot be excluded. PROCEDURE INFORMATION: Exam: CT Abdomen And Pelvis With Contrast Exam date and time: 03/13/2020 4:08 PM Age: 79 years old Clinical indication: Other: Fall, right rib pain TECHNIQUE: Imaging protocol: Computed tomography of the abdomen and pelvis with intravenous contrast. Contrast material: OMNIPAQUE 350; Contrast volume: 100 ml; Contrast route: INTRAVENOUS (IV); COMPARISON: CR XR CHEST 2V PA LATERAL 09/06/2019 11:17 PM FINDINGS: Liver: Mottled heterogeneous enhancement of the liver likely due to chronic heart failure and hepatic congestion. No hepatic laceration or perihepatic hematoma. Gallbladder and bile ducts: Multiple large calcified gallstones. No CT evidence of cholecystitis. Pancreas: Normal. No ductal dilation. Spleen: No evidence for splenic laceration or splenic hematoma. Adrenal glands: Normal. No mass. Kidneys and ureters: Normal. No hydronephrosis. Stomach and bowel: Unremarkable. No obstruction. No mucosal thickening. Appendix: No evidence of appendicitis. Intraperitoneal space: No intra-abdominal free air or free fluid. Vasculature: Incidental note is made of the retroaortic course of the left renal vein. Lymph nodes: Unremarkable. No enlarged lymph nodes. Urinary bladder: Unremarkable as visualized. Reproductive: Prostate gland enlargement. Bones/joints: No osseous injury in the abdomen or pelvis. Soft tissues: Unremarkable. IMPRESSION: 1. No acute solid or hollow viscus injury in the abdomen or pelvis. 2. Multiple large calcified gallstones. No CT evidence of acute cholecystitis. 3. No acute osseous injury in the abdomen or pelvis. 4. Hepatic congestion related to chronic heart failure. Dictated and Authenticated by: Johnie Mcclain MD. Ordering:LOREN Schmitz MD
[2020-03-13] MEDS: oxyCODONE 5 mg/Acetaminophen 325 mg TAB 1 TAB PO (19:17)
[2020-03-13 19:44] LABS: Troponin I < 0.05 ng/mL (<0.06)
[2020-03-13 20:36] LABS: INR 1.3 (0.9-1.1)
--- NOTE | 2020-03-13 21:01 | HPE_ITS ---
Date of service: 03/13/20 Time of Service: 21:01 Assessment and Plan Assessment and plan (1) Multiple fractures of ribs of right side: Status: Acute Assessment and plan: Rib fractures due to mechanical fall. Will give prn analgesics, and prn neuroleptic for confusion/restlessnes. PT in AM. Will hold X arelto for now until clear no bleeding complications. Reviewed ADs with daughter, requests DNR. History of Present Illness History of Present Illness Chief Complaint: rib fracture Narrative: 79 male with h/o dementia. Mechanical fall today (not witnessed but recorded on home video monitor), landing on right side. Note on Xarelto for AF. In ER w/u of note for fxx ribs 8-12 on right, otherwise no traumatic injuries by CT imaging of head, chest and abdomen. received MS the Oxycodone. Due to ongoing confusion and restlessness (for which he has just received Haldol 2 mg IV), and heightened fall risk, is admitted for further management. Review of Systems Unobtainable due to mental status [facility] Medical History Cerebrovascular accident (09/25/12) Presumed ischemic left thalamus, balance problems and speech problems 09/25/2012. Chest pain Chronic anticoagulation Dementia probable Lewy body dementia (associated w/ tremors, gait instability and visual hallucinations) Glaucoma History of CVA (cerebrovascular accident) Hx of smoking Hyperlipidemia Laceration of thigh, left Paroxysmal A-fib Surgical History H/O right knee surgery repair after chain saw accident History of phacoemulsification of cataract of both eyes with intraocular lens implantation right eye 10/10/2018, left eye 09/26/2018 Family History Father , in his lat 70's Heart disease Colon cancer Mother , in her 80's Stroke Dementia Social History Smoking/Tobacco Use Status: Former Tobacco Use Quit Date: 02/22/69 Smoking risk assessment performed?: Yes Alcohol Intake: former Drug use: Never Substance use type: does not use 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[place], [place] Current gender identity: male Do you feel safe at home: Yes Do you feel safe in your relationship?: Yes Meds Home Medications and Allergies Home Medications Medication Instructions Recorded Confirmed Type docusate sodium [Colace] 100 mg PO BID #0 cap 10/27/18 09/06/19 Rx meclizine 25 mg PO TID PRN PRN #0 tab 10/27/18 09/06/19 Rx metoprolol tartrate 12.5 mg PO BID #0 tab 10/27/18 03/13/20 Rx diphenhydramine-acetaminophen tab PO PRN PRN 09/06/19 History [Tylenol PM Extra Strength] furosemide 20 mg PO BID DIURETIC 09/06/19 03/13/20 History rivaroxaban [Xarelto] 20 mg PO DAILY 03/13/20 03/13/20 History Allergies Allergy/AdvReac Type Severity Reaction Status Date / Time Penicillins Allergy Unknown long time Unverified 10/23/18 17:26 ago Exam Narrative Exam Narrative: 118/95, 101, 36.5, 20, 96% RA. HEENT atraumatic; neck supple, nontender; lungs clear thoiugh diminished, tender along right lateral chest wall, w/o ecchymoses; heart distant, irr/irr; abdomen soft and NT; extremities trace pedal edema; neuro Ox1, restless and confused, moves all 4s Results Labs Result diagrams: 03/13/20 16:20 03/13/20 16:20 Labs: Laboratory Results - last 24 hr 03/13/20 03/13/20 03/13/20 16:20 16:20 16:20 WBC 7.36 RBC 3.90 L Hgb 11.5 L Hct 35.2 L MCV 90.3 MCH 29.5 MCHC 32.7 RDW 14.4 H Plt Count 201 MPV 10.3 Immature Gran % 3.5 Neutrophils % 72.0 Lymphocytes % 11.1 Monocytes % 12.9 Eosinophils % 0.4 Basophils % 0.1 Nucleated RBC % 0 Absolute Neutrophils 5.29 Absolute Lymphocytes 0.82 L Absolute Monocytes 0.95 H Absolute Eosinophils 0.03 Absolute Basophils 0.01 PT 13.0 H INR 1.3 H Sodium 136 Potassium 3.4 L Chloride 102 Carbon Dioxide 26.1 Anion Gap 7.9 BUN 19 H Creatinine 1.00 Estimated GFR/1.73 m2 >= 60.00 Glucose 118 H Calcium 8.4 L Magnesium 2.0 Total Bilirubin 0.9 AST 17 ALT 19 Alkaline Phosphatase 78 Troponin I < 0.05 Total Protein 6.7 Albumin 3.3 L Urine Color Urine Clarity Urine pH Ur Specific [place] Urine Protein Urine Ketones Urine Blood Urine Nitrite Urine Bilirubin Urine Urobilinogen Ur Leukocyte Esterase Urine Glucose 03/13/20 03/13/20 18:00 19:20 WBC RBC Hgb Hct MCV MCH MCHC RDW Plt Count MPV Immature Gran % Neutrophils % Lymphocytes % Monocytes % Eosinophils % Basophils % Nucleated RBC % Absolute Neutrophils Absolute Lymphocytes Absolute Monocytes Absolute Eosinophils Absolute Basophils PT INR Sodium Potassium Chloride Carbon Dioxide Anion Gap BUN Creatinine Estimated GFR/1.73 m2 Glucose Calcium Magnesium Total Bilirubin AST ALT Alkaline Phosphatase Troponin I < 0.05 Total Protein Albumin Urine Color Yellow Urine Clarity Clear Urine pH 5.5 Ur Specific [place] 1.020 Urine Protein Negative Urine Ketones Negative Urine Blood Negative Urine Nitrite Negative Urine Bilirubin Negative Urine Urobilinogen 0.2 Ur Leukocyte Esterase Negative Urine Glucose Negative Last Vital Signs Temp 36.5 C 03/13/20 18:39 Pulse 101 H 03/13/20 18:39 Resp 20 03/13/20 18:39 BP 118/95 H 03/13/20 18:39 Pulse Ox 96 03/13/20 18:39 COVID-19 Screening Have you, or household traveled for leisure in last 14 days?: No Had IN PERSON contact w/suspected or confirmed C-19 person: No
[2020-03-13] MEDS: Haloperidol 5 MG/ML VIAL 2 MG IM/IV (21:15)
[2020-03-13] MEDS: QUEtiapine 25 MG TAB PO (21:45)
[2020-03-14] MEDS: oxyCODONE 5 MG TAB PO ×2 (03:37→14:56)
[2020-03-14] MEDS: ACETAMINOPHEN 1,000 MG/100 ML BTL 400 MG IVPB (03:48)
[2020-03-14] MEDS: QUEtiapine 25 MG TAB PO (03:54)
[2020-03-14] MEDS: Normal Saline 1,000 ML 150 ML IV ×2 (05:05→11:48)
[2020-03-14 07:22] VITALS: BP 120/64; PULSE 125; RESP 19; TEMP 36.6; O2SAT 96
[2020-03-14 08:45] VITALS: O2SAT 96
[2020-03-14] MEDS: Metoprolol 25 MG TAB 12.5 MG PO ×2 (08:45→20:57)
[2020-03-14] MEDS: Furosemide 20 MG TAB PO ×2 (08:45→15:37)
--- NOTE | 2020-03-14 09:24 | PGE_ITS ---
Date of Service Date of service: 03/14/20 Time of Service: 09:24 Assessment and Plan Assessment and plan (1) Multiple fractures of ribs of right side: Status: Acute Assessment and plan: will schedule acetaminophen, add toradol short term and increase frequency of oxycodone. add lidocaine consider rib block (2) Dementia: Status: Chronic Assessment and plan: acute delirium while hospitalized, will schedule seroquel to avoid periods of agitation requiring prn (3) Paroxysmal A-fib: Status: Acute Assessment and plan: on beta aleena and anticoagulated on xarelto which is on hold at this time (4) History of CVA (cerebrovascular accident): Status: Acute Assessment and plan: stable. discussed with DR Kirby Subjective Subjective Interval history since last seen: patient has been confused overnight, requiring seroquel. he has been tachycardic, most likely d/t pain and agitation, otherwise has been hemodynamically stable. Exam Const General: comfortable, no acute distress and frail appearing Nutritional Appearance: average body habitus Orientation: confused (sedate) [facility] Head: normal to inspection, normocephalic and atraumatic Mouth: oral mucosae normal Chest Chest: normal inspection of the chest Resp Effort & Inspection: normal respiratory effort Auscultation: diminished lung sounds (poor inspiratory effort) Cardio Rate: regular rate Rhythm: abnormal rhythm irregularly irregular GI Inspection: normal to inspection Palpation: soft Auscultation: normal bowel sounds Neuro General: patient confused Cognition: abnormal cognition (severe advanced dementia) Motor: muscle tone normal throughout Extrem General: normal to inspection, full ROM and no pedal edema Objective Last Vital Signs Temp 36.6 C 03/14/20 07:22 Pulse 125 H 03/14/20 07:22 Resp 19 03/14/20 07:22 BP 120/64 03/14/20 07:22 Pulse Ox 96 03/14/20 07:22 Laboratory Results - last 24 hr 03/13/20 03/13/20 03/13/20 16:20 16:20 16:20 WBC 7.36 RBC 3.90 L Hgb 11.5 L Hct 35.2 L MCV 90.3 MCH 29.5 MCHC 32.7 RDW 14.4 H Plt Count 201 MPV 10.3 Immature Gran % 3.5 Neutrophils % 72.0 Lymphocytes % 11.1 Monocytes % 12.9 Eosinophils % 0.4 Basophils % 0.1 Nucleated RBC % 0 Absolute Neutrophils 5.29 Absolute Lymphocytes 0.82 L Absolute Monocytes 0.95 H Absolute Eosinophils 0.03 Absolute Basophils 0.01 PT 13.0 H INR 1.3 H Sodium 136 Potassium 3.4 L Chloride 102 Carbon Dioxide 26.1 Anion Gap 7.9 BUN 19 H Creatinine 1.00 Estimated GFR/1.73 m2 >= 60.00 Glucose 118 H Calcium 8.4 L Magnesium 2.0 Total Bilirubin 0.9 AST 17 ALT 19 Alkaline Phosphatase 78 Troponin I < 0.05 Total Protein 6.7 Albumin 3.3 L Urine Color Urine Clarity Urine pH Ur Specific [place] Urine Protein Urine Ketones Urine Blood Urine Nitrite Urine Bilirubin Urine Urobilinogen Ur Leukocyte Esterase Urine Glucose 03/13/20 03/13/20 18:00 19:20 WBC RBC Hgb Hct MCV MCH MCHC RDW Plt Count MPV Immature Gran % Neutrophils % Lymphocytes % Monocytes % Eosinophils % Basophils % Nucleated RBC % Absolute Neutrophils Absolute Lymphocytes Absolute Monocytes Absolute Eosinophils Absolute Basophils PT INR Sodium Potassium Chloride Carbon Dioxide Anion Gap BUN Creatinine Estimated GFR/1.73 m2 Glucose Calcium Magnesium Total Bilirubin AST ALT Alkaline Phosphatase Troponin I < 0.05 Total Protein Albumin Urine Color Yellow Urine Clarity Clear Urine pH 5.5 Ur Specific [place] 1.020 Urine Protein Negative Urine Ketones Negative Urine Blood Negative Urine Nitrite Negative Urine Bilirubin Negative Urine Urobilinogen 0.2 Ur Leukocyte Esterase Negative Urine Glucose Negative
[2020-03-14] MEDS: Lidocaine 5% Patch 2 PATCH TP (10:32)
[2020-03-14] MEDS: Normal Saline Flush 10 ML SYR IVP ×3 (10:32→22:03)
[2020-03-14] MEDS: Pantoprazole 40 MG VIAL IVP (10:32)
[2020-03-14] MEDS: Ketorolac 15 MG/ML VIAL IVP ×3 (10:32→22:03)
--- NOTE | 2020-03-14 10:35 | PT.INIE ---
Date of service: 03/14/20 Time of Service: 10:35 PT Notes Visit Reasons: RIB FRACTURES Physical Therapy Inpatient Initial Evaluation Date: 03/15/2020 Referring Doctor: Rip Troncoso MD PT Orders: PT CONSULT: Eval/Treat. Precautions: Fall. Standard. Activity as tolerated. Hard of hearing. Patient Profile/Admitting Diagnosis: Rubén is a 79-year-old male with a history of CVA and dementia who presented to the ED via EMS on 03/13/2019 due to a fall. He is diagnosed with multiple rib fractures on the right side. CT of the head and neck is negative. Chest CT demonstrated multiple right lower lateral and posterior rib fractures with small reactive pleural effusion and subjacent atelectasis. PMHX: Medical History Cerebrovascular accident (09/25/12) Presumed ischemic left thalamus, balance problems and speech problems 09/25/2012. Chest pain Chronic anticoagulation Dementia probable Lewy body dementia (associated w/ tremors, gait instability and visual hallucinations) Glaucoma History of CVA (cerebrovascular accident) Hx of smoking Hyperlipidemia Laceration of thigh, left Paroxysmal A-fib Surgical History H/O right knee surgery repair after chain saw accident History of phacoemulsification of cataract of both eyes with intraocular lens implantation right eye 10/10/2018, left eye 09/26/2018 Social History/Home Situation: Unable to extract information due to lethargy and confusion Equipment Owned/DME: Unknown at this time Subjective: Lethargic. Requires 2-3 repeptitions of single-step commands when spoken to withing hearing range. Mildly confused. Impulsive. Guards L UE due to IV access site and R side of trunk due to fracture sites. Objective: General Observation: Supine in bed. Nurses Zo and Selin as well as PAOLA Hall providing self-care upon arrival. Contusion seen in L UE. IV access in L UE. Mental Status: Lethargic. Confused. Impulsive. Only able to follow single step commands when spoken to within hearing range. Pain: Protective of L UE and R side of trunk ROM: Right Upper Extremity: Able to move from 25% to 50% of available AROM with pain at end of range during mobility assessment Left Upper Extremity: Able to move from 25% to 50% of available AROM with pain at end of range during mobility assessment Right Lower Extremity: Able to move from 25% to 50% of available AROM with pain at end of range during mobility assessment Left Lower Extremity: Able to move from 25% to 50% of available AROM with pain at end of range during mobility assessment Strength: Right Upper Extremity: Grossly 3-/5 Left Upper Extremity: Grossly 3-/5 Right Lower Extremity: Grossly 3-/5 Left Lower Extremity: Grossly 3-/5 Sensation: Unable to test Bed Mobility/Transfers: Rolling moderate assist of 2 with moderate verbal and tactile cueing for compliance and sequence Supine to sit moderate assist of 2 with moderate verbal and tactile cueing for compliance and sequence Sit to supine moderate assist of 2 with moderate verbal and tactile cueing for compliance and sequence Sit to stand moderate assist of 3 with moderate verbal and tactile cueing for compliance and sequence using STEDY lift Stand to sit moderate assist of 3 with moderate verbal and tactile cueing for compliance and sequence using STEDY lift Bed to chair moderate assist of 3 with moderate verbal and tactile cueing for compliance and sequence using STEDY lift Chair to bed moderate assist of 3 with moderate verbal and tactile cueing for compliance and sequence using STEDY lift Gait: Unable due to level of alertness, confusion, and pain complaint Balance: Static Sitting: Fair Dynamic Sitting: Fair Static Standing: Unable Dynamic Standing: Unable Special Tests: Mobility Limitations Standardized Measure [facility] 6 clicks Basic Mobility Inpatient Short Form: Raw Score: 6 CMS Score: 100% deficit Informed Consent/Education: Attempted to instruct patient in purpose of PT consult and plan of care. Assessment: Rubén demonstrates a significant functional mobility decline requiring the use of a mechanical device and assist of 3 people for all mobility ADL performance, inability to walk, generalized weakness, pain complaint, impaired level of alertness, and confusion due to admitting diagnoses and co-morbidities. Patient will benefit from intermediate facility placement for continued skilled physical therapy services in order to progress mobility level, strength, and balance in preparation for a safe discharge to home. Patient presents with clinical signs and symptoms consistent with current/admitting diagnoses that have resulted to mobility limitations, gait instability, generalized weakness, and impairment of motor control as demonstrated by the following impairment level findings: 1. Decreased strength to B UE/LE major muscle groups 2. Impaired sitting/standing balance 3. Impaired activity tolerance 4. Limitation of joint range of motion in B UE/LE 5. Increased confusion 6. Lethargic 7. Pain avoidance behavior involving left UE and right side of trunk. Impairments are contributing to the following functional limitations: 1. Dependent bed mobility skills 2. Increased dependence with transfers 3. Inability to safely ambulate due to pain and confusion 4. Increase completion time for mobility ADL performance 5. Increased fall risk 6. Inability to negotiate steps alone safely Patient is assessed as a 87050 high complexity based on the following: History: 79-year-old male with impairment level findings, functional limitations, and past medical history as indicated above Examination: Demonstrable impairment in strength, balance, and mobility level with underlying impairments and functional limitations as documented above Presentation:Evolving Decision Makin high complexity Goals: Goals X1 week 1. Supine-Sit minimal assist 2. Sit-Supine minimal assist 3. Sit-Stand minimal assist 4. Stand-Sit minimal assist 5. Bed-Chair minimal assist 6. Chair-Bed minimal assist 7. Minimal assist gait on level surface with use of least restrictive device for at least 100 feet without report of pain nor dyspnea 8. Fair static and dynamic standing balance/tolerance Plan of Care/Treatment Plan: 1-2x/day, 7 days/week x 1 week. Plan of care has been reviewed with the LEAD ELECTRICIAN providing the service under Physical Therapy direction. Initiate Physical Therapy intervention for strengthening, bed mobility, transfers, gait, stairs, balance training, use of assistive device. DISCHARGE RECOMMENDATIONS: Patient will benefit from intermediate facility placement for continued skilled physical therapy services in order to progress mobility level, strength, and balance in preparation for a safe discharge to home. TREATMENT CODE/TIME: 12588 x 29 minutes beginning at 10:35 AM. Thank you for the opportunity to participate in the care of this patient. Mitzi Brown PT, DPT, CLT [facility] [place], [place]
--- NOTE | 2020-03-14 11:53 | PHA.REVIEW ---
Pharmacy Admission Review - Admission Clinical Review (Last Reviewed 03/13/20 @ 21:05 by Rip Troncoso MD) Multiple fractures of ribs of right side (Acute) Pleural effusion on right (Acute) History of CVA (cerebrovascular accident) (Acute) Paroxysmal A-fib (Acute) Penicillins Allergy (Unknown, Unverified 10/23/18 17:26) long time ago Height 6 ft Weight 71 kg RIB FRACTURE, DIMENTIA, MECHANICAL FALL - Comments Comments/Follow Ups: Patient on Xarelto at home for A-fib, no anticoagulation ordered, possibly due to fall, watch for addition of bowel meds. Potassium 3.4 on admission-no replacement ordered, no labs this morning. Will ask to change Protonix to oral. Seroquel added for confusion/restlessness. Patient refused AM dose of Seroquel. Palliative care consult ordered, PT consult. Covid test pending. Has NS running @ 150ml/hr with Lasix....expect some changes - Renal Dosing Renal Dosing: BUN 19 mg/dL (7-18) H 03/13/20 16:20 Creatinine 1.00 mg/dL (0.70-1.30) 03/13/20 16:20 Medications needing adjustments: Reviewed (CrCl~60ml/min) - Anticoagulation Anticoagulation: Hgb 11.5 g/dL (13.5-17.5) L 03/13/20 16:20 Hct 35.2 % (40.0-50.0) L 03/13/20 16:20 Plt Count 201 10^3/uL (130-400) 03/13/20 16:20 INR 1.3 (0.9-1.1) H 03/13/20 16:20 Creatinine 1.00 mg/dL (0.70-1.30) 03/13/20 16:20 DVT Prohphylaxis: N/A Therapeutic Anticoagulation: N/A (Xarelto for Afib being held at this time s/p fall/rib fractures) - Opiate Usage Evaluate Pain Scale/Pains Meds: Reviewed (Oxy IR interval increased for better pain control (Also has APAP scheduled, Ketorolac added, Lidocaine patches) Pain level recorded as zero, but patient agitated, may not really know level of pain) Scheduled Bowel Reg ordered if on Opiates?: No (Will ask MD to add meds) - Relevant Labs Sodium 136 mmol/L (136-145) 03/13/20 16:20 Potassium 3.4 mmol/L (3.5-5.1) L 03/13/20 16:20 Chloride 102 mmol/L (98-107) 03/13/20 16:20 Magnesium 2.0 mg/dL (1.8-2.4) 03/13/20 16:20 - DM Control DM Control: Glucose 118 mg/dL (74-106) H 03/13/20 16:20 Insulin Dosing: N/A - Heart Failure/AK Heart Failure/AK: Troponin I < 0.05 ng/mL (<0.06) 03/13/20 19:20 EF%, YASHIRA's, B-Blockers, Diuretics: Reviewed (Metoprolol 12.5mg po BID, Lasix 20mg BID) - BP Control BP Control: Blood Pressure 120/64 If elevated: Reviewed - Qtc Review If Elevated: N/A (no EKG) - IV to PO Switch IV Medications: Reviewed (Ketorolac, Protonix) - Home Meds Home Med List reviewed: Reviewed Relevent Home Meds Not ordered & why?: Xarelto held at this time, Meclizine, Docusate
--- NOTE | 2020-03-14 13:36 | W.PALLCONSUL ---
Date of service: 03/14/20 Time of Service: 13:36 History of Present Illness History of Present Illness Chief Complaint: Fall, pain Narrative: Rubén Stoddard is a 79 year old man with a past medical history significant for lewy body dementia, CVA with subsequent speech and balance difficulties, PAF, anticoagulated with xarelto, and glaucoma, who fell at home and sustained multiple rib fractures. He is a DNR/DNI. Palliative was consulted to discuss advanced care planning, goals of care and to continue to follow him as an outpatient. He lives with family, who help care for him. Since his admission last night, he has had acute delirium. The hospitalist is working on pain control and he has been started on seroquel for agitation. Unfortunately, he did not awaken for the visit. A phone call was placed to his Joana PEDRAZA ([phone]), she was not available, but a message was left. Will attempt to visit again tomorrow. Assessment and Plan Assessment and plan (1) Multiple fractures of ribs of right side: Status: Acute (2) Pleural effusion on right: Status: Acute (3) Cerebrovascular accident: Status: Active (4) Dementia: Status: Chronic (5) DNR (do not resuscitate): Status: Acute (6) DNI (do not intubate): Status: Acute (7) Palliative care patient: Status: Acute Assessment and plan: Rubén Stoddard is a 79 year old man with a past medical history significant for lewy body dementia, CVA with subsequent speech and balance difficulties, PAF, anticoagulated with xarelto, and glaucoma, who fell at home and sustained multiple rib fractures. He is a DNR/DNI. Palliative was consulted to discuss advanced care planning, goals of care and to continue to follow him as an outpatient. Unfortunately, he did not awaken for the visit. The hospitalist is working on pain control and managing his acute delirium with agitation. He was started on scheduled seroquel today. His DPJoana GRAY was not available to discuss his care and goals. A message was left. Follow up with inpatient visit tomorrow. Review of Systems Unobtainable due to mental status [facility] Medical History (Updated 03/14/20 @ 14:18 by Jamila Padgett NP) Cerebrovascular accident (09/25/12) Presumed ischemic left thalamus, balance problems and speech problems 09/25/2012. Chest pain Chronic anticoagulation Dementia probable Lewy body dementia (associated w/ tremors, gait instability and visual hallucinations) DNI (do not intubate) DNR (do not resuscitate) Glaucoma History of CVA (cerebrovascular accident) Hx of smoking Hyperlipidemia Laceration of thigh, left Palliative care patient Paroxysmal A-fib Surgical History H/O right knee surgery repair after chain saw accident History of phacoemulsification of cataract of both eyes with intraocular lens implantation right eye 10/10/2018, left eye 09/26/2018 Family History Father , in his lat 70's Heart disease Colon cancer Mother , in her 80's Stroke Dementia Social History Smoking/Tobacco Use Status: Former Tobacco Use Quit Date: 02/22/69 Smoking risk assessment performed?: Yes Alcohol Intake: former Drug use: Never Substance use type: does not use 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 HEENT: normocephalic, atraumatic, mucous membranes dry. Respirations: respirations appear even and unlabored. GI: nondistended, does not appear tender on palpation. Results Last Vital Signs Temp 36.6 C 03/14/20 07:22 Pulse 125 H 03/14/20 07:22 Resp 19 03/14/20 07:22 BP 120/64 03/14/20 07:22 Pulse Ox 96 03/14/20 08:45 Labs Result diagrams: 03/13/20 16:20 03/13/20 16:20 Labs: Laboratory Results - last 24 hr 03/13/20 03/13/20 03/13/20 16:20 16:20 16:20 WBC 7.36 RBC 3.90 L Hgb 11.5 L Hct 35.2 L MCV 90.3 MCH 29.5 MCHC 32.7 RDW 14.4 H Plt Count 201 MPV 10.3 Immature Gran % 3.5 Neutrophils % 72.0 Lymphocytes % 11.1 Monocytes % 12.9 Eosinophils % 0.4 Basophils % 0.1 Nucleated RBC % 0 Absolute Neutrophils 5.29 Absolute Lymphocytes 0.82 L Absolute Monocytes 0.95 H Absolute Eosinophils 0.03 Absolute Basophils 0.01 PT 13.0 H INR 1.3 H Sodium 136 Potassium 3.4 L Chloride 102 Carbon Dioxide 26.1 Anion Gap 7.9 BUN 19 H Creatinine 1.00 Estimated GFR/1.73 m2 >= 60.00 Glucose 118 H Calcium 8.4 L Magnesium 2.0 Total Bilirubin 0.9 AST 17 ALT 19 Alkaline Phosphatase 78 Troponin I < 0.05 Total Protein 6.7 Albumin 3.3 L Urine Color Urine Clarity Urine pH Ur Specific [place] Urine Protein Urine Ketones Urine Blood Urine Nitrite Urine Bilirubin Urine Urobilinogen Ur Leukocyte Esterase Urine Glucose 03/13/20 03/13/20 18:00 19:20 WBC RBC Hgb Hct MCV MCH MCHC RDW Plt Count MPV Immature Gran % Neutrophils % Lymphocytes % Monocytes % Eosinophils % Basophils % Nucleated RBC % Absolute Neutrophils Absolute Lymphocytes Absolute Monocytes Absolute Eosinophils Absolute Basophils PT INR Sodium Potassium Chloride Carbon Dioxide Anion Gap BUN Creatinine Estimated GFR/1.73 m2 Glucose Calcium Magnesium Total Bilirubin AST ALT Alkaline Phosphatase Troponin I < 0.05 Total Protein Albumin Urine Color Yellow Urine Clarity Clear Urine pH 5.5 Ur Specific [place] 1.020 Urine Protein Negative Urine Ketones Negative Urine Blood Negative Urine Nitrite Negative Urine Bilirubin Negative Urine Urobilinogen 0.2 Ur Leukocyte Esterase Negative Urine Glucose Negative
--- NOTE | 2020-03-14 17:56 | PDOC.CMIN ---
- If Service Date Differs Date of service: 03/14/20 Time of Service: 17:56 Care Management Initial Assess REASON FOR HOSPITALIZATION:: Rib Fracture PAST MEDICAL HISTORY/PAST SURGICAL HISTORY:: Medical History. Cerebrovascular accident (09/25/12). Presumed ischemic left thalamus, balance problems and speech problems 09/25/2012. Chest pain. Chronic anticoagulation. Dementia. probable Lewy body dementia (associated w/ tremors, gait instability and visual hallucinations). Glaucoma. History of CVA (cerebrovascular accident). Hx of smoking. Hyperlipidemia. Laceration of thigh, left. Paroxysmal A-fib. Surgical History. H/O right knee surgery. repair after chain saw accident. History of phacoemulsification of cataract of both eyes with intraocular lens implantation. right eye 10/10/2018, left eye 09/26/2018 PREVIOUS FUNCTIONAL STATUS/SOCIAL/FAMILY SUPPORTS:: uRbén lives at his home in [facility], [facility]. He has several children, some of which help to take care of him regularly. Lexie and Paul are two of his children who live locally and support him living at home. His a few years ago. He has been independent with his ADL's previous to this admission, with some assistance from his children. CURRENT FUNCTIONAL STATUS:: Rubén was lying in bed when CM attempted to visit with him. He was sleeping soundly and CM chose not to wake him up. Later, he did have periods of agitation, and his RN was with him, trying to keep him calm and in bed. CM spoke to two of his daughters today, Joana and Lexie. Joana is on file as his DPOA for healthcare from 2003, although Lexie sent paperwork showing that her and Paul are General POA, jointly. Joana and Lexie discussed his care plan, and have decided to see how he does overnight. If he shows improvement, they will ask for referrals to be sent to local rehab facilities for him to gain strength and indendence. If he continues to decline, they will opt for comfort to be his goal of care. Palliative has been consulted, and will connect with Lexie tomorrow. Palliative did attempt to contact Joana today, and left a voicemail. CM will continue to follow. ADVANCE DIRECTIVES:: DPOA on file, and GPOA paperwork was sent to CM, will add to his chart. Lexie and Paul are listed as joint GPOA agents. Has patient been provided with info about the portal/API?: No Did the patient sign up for the portal?: No CODE STATUS:: DNR/DNI INSURANCE COVERAGE / FINANCIAL ISSUES:: MCR/ AARP CURRENT HOME/COMMUNITY SERVICES/EQUIPMENT:: No current services or equipment known. PRIMARY CARE PHYSICIAN:: Rubén Beltran POTENTIAL DISCHARGE NEEDS:: Evaluations for further needs, Palliative care f/u, goals of care discussion, follow up appointments PATIENT/FAMILY EDUCATION NEEDS:: Review discharge instructions regarding activity and medications, discussion of goals of care. ANTICIPATED BARRIERS TO DISCHARGE:: Rubén's discharge plan will depend on how he does over the next 24 hours. TRANSPORTATION:: Private vehicle by family vs Ambulance PLAN:: Rubén has had periods of agitation and pain, which his medication is being adjusted to accommodate. His discharge plan will depend on how well he does overnight. If he begins to show signs of improvement, his family would like him to go to a SNF for short term rehab to recover and heal from his fall. If he continues to decline, they may consider bringing him home with Palliative/Hospice support. He will transport via private vehicle vs ambulance. will continue to follow and support Rubén and his family with discharge planning considerations.
[2020-03-14 19:32] VITALS: BP 115/77; PULSE 78; RESP 18; TEMP 35.2; O2SAT 96
[2020-03-14 20:09] LABS: COVID-19 RT-PCR UVMMC Result Negative (Negative)
[2020-03-14] MEDS: Acetaminophen 325 MG TAB 650 MG PO (20:55)
[2020-03-14] MEDS: QUEtiapine 25 MG TAB 12.5 MG PO (20:56)
[2020-03-14] MEDS: Docusate Sodium 100 MG CAP PO (20:57)
[2020-03-14 21:44] VITALS: BP 93/57; PULSE 84; RESP 20; TEMP 35.4; O2SAT 97
[2020-03-14] MEDS: Patch Removal 2 EACH TP (22:04)
[2020-03-14] MEDS: Lidocaine 2% Jelly 6 ML SYR (22:15)
[2020-03-15] MEDS: Normal Saline Flush 10 ML SYR IVP ×3 (04:56→21:20)
[2020-03-15] MEDS: Ketorolac 15 MG/ML VIAL IVP ×4 (04:57→21:20)
[2020-03-15 08:13] VITALS: BP 100/65; PULSE 69; RESP 18; TEMP 36.9; O2SAT 99
--- NOTE | 2020-03-15 09:15 | PGE_ITS ---
Date of Service Date of service: 03/15/20 Time of Service: 09:15 Assessment and Plan Assessment and plan (1) Multiple fractures of ribs of right side: Status: Acute (2) Pleural effusion on right: Status: Acute (3) Cerebrovascular accident: Status: Active (4) Dementia: Status: Chronic (5) DNR (do not resuscitate): Status: Acute (6) DNI (do not intubate): Status: Acute (7) Palliative care patient: Status: Acute Assessment and plan: Rubén Stoddard is a 79 year old man with a past medical history significant for lewy body dementia, CVA with subsequent speech and balance difficulties, PAF, anticoagulated with xarelto, and glaucoma, who fell at home and sustained multiple rib fractures. He is a DNR/DNI. Palliative was consulted to discuss advanced care planning, goals of care and to continue to follow him as an outpatient. He was awake and alert for his visit this morning. He denied pain, continue to control pain. A block was being considered by the hospitalist. His case was discussed with his daughter/DPOA Lexie, who wants him to go to rehab as long as he is improving for PT. If his condition deteriorates, his family would support home hospice. He lives alone but his children take turns spending the night and helping care for him. Follow up with outpatient Palliative services. His daughter is pleased to have palliative. Subjective Subjective Interval history since last seen: Nursing reported overnight that he has been sleeping or agitated. There were concerns that the agitation may be his expression of pain. However, Marlene Balderas, Hospitalist, [employer] changed his pain medication regimen since then. He was seen in his hospital room, he just finished breakfast. He was awake and alert and talkative. He denies pain at this time. PT was in the room, getting ready to assist him out of bed. He is eating 75-100% of his meals. He denies abdominal pain, nausea or vomiting. His DPOA has been updated to his daughter, Lexie, and his son, Paul. I spoke with Lexie via telephone, she reports that her siblings are in agreement with her dad going to rehab after his hospitalization if he qualifies. She believes he will benefit from PT. If his condition deteriorated and he qualified for hospice, they would be interested in home hospice. Prior to his hospitalization, he was living at home and his children were taking turns spending the night with him. He had paid caregivers for a while but when he found out that they were paid, he fired them. His goals are to stay home and have care directed towards his comfort. Exam Narrative Exam Narrative: General: elderly man, sitting up in bed, awake and alert, engaging in conversation. Answering questions but gave incorrect answers, stated his sister lives with him and helps him. He was able to recall my name at the end of the visit after being introduced in the beginning. HEENT: normocephalic, atraumatic, pupils equal and round, mucous membranes moist. Cardiovascular: heart sounds regular. Respirations: respirations appear even and unlabored. lung sounds are clear on anterior and lateral exam. Chest: area of ecchymosis to left lateral and posterior chest. GI: +BS, soft, nondistended, nontender on palpation. Extremities: no edema. Objective Last Vital Signs Temp 36.9 C 03/15/20 08:13 Pulse 69 03/15/20 08:13 Resp 18 03/15/20 08:13 BP 100/65 03/15/20 08:13 Pulse Ox 99 03/15/20 08:13 Laboratory Results - last 24 hr 03/13/20 21:20 SARS-CoV-2 (PCR) Negative Nasopharyn COVID-19 PCR Not Applicable Ref Test Perform Site [facility] lab
[2020-03-15] MEDS: Lidocaine 5% Patch 2 PATCH TP (09:54)
[2020-03-15] MEDS: Furosemide 20 MG TAB PO ×2 (09:55→15:29)
[2020-03-15] MEDS: Pantoprazole 40 MG TABCR PO (09:55)
[2020-03-15] MEDS: Docusate Sodium 100 MG CAP PO ×2 (09:55→21:17)
[2020-03-15] MEDS: QUEtiapine 25 MG TAB 12.5 MG PO ×2 (09:55→21:19)
[2020-03-15] MEDS: Metoprolol 25 MG TAB 12.5 MG PO ×2 (10:01→21:17)
--- NOTE | 2020-03-15 10:09 | PT.INTREAT ---
PT Notes Visit Reasons: RIB FRACTURES 03/15/2020 SUBJECTIVE: Minimal pain complaints. Only complains of left shoulder discomfort with ambulation. Resolves once in his chair. He would like to get up and go to the chair to have coffee and corn flakes. OBJECTIVE: [id number] Nursing present in the room for transfer and assist. TRANSFERS Supine to sit: SBA Sit to stand: Min A Stand to sit: Min A GAIT Device: FWW Weight bearing: Full Assist: Min A x 2 Distance: 20' Deviation: Cues to hold onto the walker, manually place his hands to walker. ASSESSMENT: Pt having improvement in comfort today and is much clearer. We will continue to advance his mobility as he is able to tolerate. PLAN: Continue current POC. Treatment time: 15' Cristina Almaguer PTA Clinic location: [facility] [place], [place]
--- NOTE | 2020-03-15 11:32 | PTTR_ITS ---
PT Notes Visit Reasons: RIB FRACTURES 03/15/2020 SUBJECTIVE: Would like to get up for a walk. No pain complaints throughout. He notes that he does not know where he is. OBJECTIVE: [id number] 2nd PT treatment TRANSFERS Sit to stand: Mod A x 2 Stand to sit: Mod A x 2 GAIT Device: FWW Weight bearing: Full Assist: min A x 2 Distance: 20' Deviation: Backwards lean, requires walker management and steering. THEREX: Attempt LE strengthening seated in the chair. Pt with difficulty following commands. See flow sheet. ASSESSMENT: Pt is not as clear during second PT treatment today. Continues to be pleasantly confused. Requires cues for walker management and steering efforts with the walker. He continues to require 2 assist for mobility. PLAN: Continue to progress as he is able to tolerate. Treatment time: 15 Cristina Almaguer PTA Clinic location: [facility] [place], [place]
--- NOTE | 2020-03-15 13:34 | W.NUTRFU ---
Date of service: 03/15/20 Time of Service: 13:34 Nutritional Follow up NOTE: 79 year old male admitted with multiple fractures of ribs on right side, palliative care patient. Following regular diet with excellent intake. BMI wnl. Not at nutritional risk at this time. Time Spent in Nutritional Counseling and Treatment: 0
--- NOTE | 2020-03-15 14:05 | W.PM.PROGNOT ---
Date of Service Date of service: 03/15/20 Time of Service: 14:05 Assessment and Plan Assessment and plan (1) Multiple fractures of ribs of right side: Start date: 03/15/20 Start time: 14:07 Status: Acute Assessment and plan: No rib block at this time. Patient does not seem uncomfortable. Nucyenta to cut back on worsening confusion Tylenol PRN, He was able to follow commands, though he was not able to answer questions His family agrees that if he clears up they would like rehab if continues to get worse home with hospice. (2) Dementia: Start date: 03/15/20 Start time: 14:10 Status: Chronic Assessment and plan: acute delirium while hospitalized, will schedule seroquel to avoid periods of agitation requiring prn (3) Paroxysmal A-fib: Start date: 03/15/20 Start time: 14:10 Status: Acute Assessment and plan: on beta aleena and anticoagulated on xarelto which is on hold at this time Check CBC tomorrow and restart xarelto if H/H stable (4) History of CVA (cerebrovascular accident): Start date: 03/15/20 Start time: 14:11 Status: Acute Assessment and plan: stable. discussed with DR Kirby Subjective Subjective Patient reports: other Interval history since last seen: Sitting up in chair continues to be confused but improved. Follows directions Exam Const General: comfortable, no acute distress and frail appearing Nutritional Appearance: average body habitus Orientation: confused (sedate) HENMT Head: normal to inspection, normocephalic and atraumatic Mouth: oral mucosae normal Chest Chest: normal inspection of the chest Resp Effort & Inspection: normal respiratory effort Auscultation: diminished lung sounds (poor inspiratory effort) Cardio Rate: regular rate Rhythm: abnormal rhythm irregularly irregular GI Inspection: normal to inspection Palpation: soft Auscultation: normal bowel sounds Neuro General: patient confused Cognition: abnormal cognition (severe advanced dementia) Motor: muscle tone normal throughout Extrem General: normal to inspection, full ROM and no pedal edema Objective Last Vital Signs Temp 36.9 C 03/15/20 08:13 Pulse 69 03/15/20 08:13 Resp 18 03/15/20 08:13 BP 100/65 03/15/20 08:13 Pulse Ox 99 03/15/20 08:13 Laboratory Results - last 24 hr 03/13/20 21:20 SARS-CoV-2 (PCR) Negative Nasopharyn COVID-19 PCR Not Applicable Ref Test Perform Site [facility] lab
[2020-03-15] MEDS: Acetaminophen 325 MG TAB 650 MG PO (15:29)
[2020-03-15 15:42] VITALS: BP 100/64; PULSE 74; RESP 19; TEMP 36.6; O2SAT 93
--- NOTE | 2020-03-15 18:53 | PDOC.CMPRO ---
- If Service Date Differs Date of service: 03/15/20 Time of Service: 18:53 Care Management Progress Note S/O: Rubén was much more awake and alert today, although he continues to require assistance with his ADL's. When CM visited with him, he was eating his lunch, which he was receiving assistance with by his RN. ANAID discussed his progress with his daughter, Lexie, who was very pleased, and stated that she would like to pursue SNF placement for short term rehab. They would like him to regain some strength and independence prior to returning home. ANAID sent a referral to [facility], at the family's request. He was declined for admission. ANAID discussed this with Lexie, who will give CM additional options to send referrals to on Wednesday (they will not be reviewed until then as it was late afternoon on Wed when he was declined by [facility]). CM will make further inquiries with [facility] regarding their decision, as they may need additional clinical information. CM will send more documentation on his behaviors on Wednesday, assuming he is stable through the weekend. The family does not want the referral sent to the [facility] at this time, but realize that it may be an option that they will entertain if other options are exhausted. CM will communicate with Lexie on Wednesday regarding his placement. CM will continue to follow. Lexie's contact # [phone]. (number in chart is incorrect) A: Rubén is a 79 year old male admitted to [facility] on 03/13/20 with Rib Fractures. P: Anticipate Rubén will go to a SNF for short term rehab prior to returning home with services. He was declined by [facility]. Additional referrals to be sent Wednesday. He will be transported via [facility] w/c van vs ambulance. He will follow up with Palliative, his PCP and his discharge plan of care. CM will continue to follow.
[2020-03-15] MEDS: Patch Removal 2 EACH TP (21:36)
[2020-03-15 23:55] VITALS: BP 112/78; PULSE 87; RESP 17; TEMP 36.2; O2SAT 97
[2020-03-16] MEDS: Normal Saline Flush 10 ML SYR IVP ×3 (04:14→21:12)
[2020-03-16 07:27] VITALS: BP 117/83; PULSE 69; RESP 17; TEMP 36.7; O2SAT 100
[2020-03-16] MEDS: Acetaminophen 325 MG TAB 650 MG PO (08:28)
[2020-03-16] MEDS: Docusate Sodium 100 MG CAP PO ×2 (08:28→21:12)
[2020-03-16] MEDS: QUEtiapine 25 MG TAB 12.5 MG PO ×2 (08:28→21:12)
[2020-03-16] MEDS: Furosemide 20 MG TAB PO ×2 (08:29→17:50)
[2020-03-16] MEDS: Metoprolol 25 MG TAB 12.5 MG PO ×2 (08:29→21:12)
[2020-03-16] MEDS: Pantoprazole 40 MG TABCR PO (08:29)
[2020-03-16] MEDS: Lidocaine 5% Patch 2 PATCH TP (09:50)
[2020-03-16] MEDS: Ketorolac 15 MG/ML VIAL IVP ×2 (09:51→21:11)
--- NOTE | 2020-03-16 11:43 | CMPROGNOTE_ITS ---
- If Service Date Differs Date of service: 03/16/20 Time of Service: 11:43 Care Management Progress Note S/O: Rubén was sitting up in a chair when CM came to see him. He was awake and alert but quite confused. He was trying to pull on his huston cathweter and a gait belt that was in his chair. Rubén asked CM to lower the legs on his recliner so that he could walk around the room . He said that he was uncomfortable with his legs elevated all day and needed to walk. ANAID relayed the request to his nurse who stated they would make every effort to ambulate him later today. On Wednesday, ANAID discussed his progress with his daughter, Lexie, who was very pleased, and stated that she would like to pursue SNF placement for short term rehab. They would like him to regain some strength and independence prior to returning home. ANAID sent a referral to [facility], at the family's request. He was declined for admission. ANAID discussed this with Lexie, who will give CM additional options to send referrals to on Wednesday (they will not be reviewed until then as it was late afternoon on Wed when he was declined by [facility]). CM will make further inquiries with [facility] regarding their decision, as they may need additional clinical information. ANAID will send more documentation on his behaviors on Wednesday, assuming he is stable through the weekend. The family does not want the referral sent to the [facility] at this time, but realize that it may be an option that they will entertain if other options are exhausted. ANAID will communicate with Lexie on Wednesday regarding his placement. CM will continue to follow. Lexie's contact # [phone]. (number in chart is incorrect) A: Rubén is a 79 year old male admitted to [facility] on 03/13/20 with Rib Fractures. P: Anticipate Rubén will go to a SNF for short term rehab prior to returning home with services. He was declined by [facility]. Additional referrals to be sent Wednesday. He will be transported via [facility] w/c van vs ambulance. He will follow up with Palliative, his PCP and his discharge plan of care. CM will continue to follow.
--- NOTE | 2020-03-16 11:55 | W.PM.PROGNOT ---
Date of Service Date of service: 03/16/20 Time of Service: 11:55 Assessment and Plan Assessment and plan (1) Multiple fractures of ribs of right side: Start date: 03/16/20 Start time: 12:05 Status: Acute Assessment and plan: Patient comfortable with toradol and lidocaine patch Nucyenta as needed last dose yesterday morning Tylenol PRN, He was able to follow commands, though he was not able to answer questions Family would like him to go to [facility]. (2) Dementia: Start date: 03/16/20 Start time: 12:05 Status: Chronic Assessment and plan: acute delirium has improved. He continues to be confused but follows commands. will schedule seroquel to avoid periods of agitation requiring prn (3) Paroxysmal A-fib: Start date: 03/16/20 Start time: 12:07 Status: Acute Assessment and plan: on beta aleena and anticoagulated on xarelto which is on hold at this time Awaiting on CBC to restart xarelto (4) History of CVA (cerebrovascular accident): Start date: 03/16/20 Start time: 12:07 Status: Acute Assessment and plan: stable. discussed with DR Park Subjective Subjective Patient reports: no new complaints Interval history since last seen: Sitting up in chair, able to follow commands, he does have confusion, but is awake and alert. Family would like patient to go to [facility]. Continue to have staff work with patient on ICS. He has only had one dose of pain medication since yesterday morning pain has been otherwise controlled. He is eating and drinking without difficulty. Exam Const General: comfortable, no acute distress and frail appearing Nutritional Appearance: average body habitus Orientation: confused (sedate) [facility] Head: normal to inspection, normocephalic and atraumatic Mouth: oral mucosae normal Chest Chest: normal inspection of the chest Resp Effort & Inspection: normal respiratory effort Auscultation: diminished lung sounds (poor inspiratory effort) Cardio Rate: regular rate Rhythm: abnormal rhythm irregularly irregular GI Inspection: normal to inspection Palpation: soft Auscultation: normal bowel sounds Neuro General: patient confused Cognition: abnormal cognition (severe advanced dementia) Motor: muscle tone normal throughout Extrem General: normal to inspection, full ROM and no pedal edema Objective Last Vital Signs Temp 36.7 C 03/16/20 07:27 Pulse 69 03/16/20 07:27 Resp 17 03/16/20 07:27 BP 117/83 03/16/20 07:27 Pulse Ox 100 03/16/20 07:27
[2020-03-16 12:30] LABS: Abs Immature Grans 0.35 10^3/uL (0.0-0.06); HCT 32.7 % (40.0-50.0); HGB 10.6 g/dL (13.5-17.5); MCH 29.4 pg (27.0-33.0); MCHC 32.4 % (32.0-36.0); MCV 90.6 fL (80-95); Nucleated RBC 0 %; Platelet Count 215 10^3/uL (130-400); RBC 3.61 10^6/uL (4.36-5.78); RDW 14.1 % (11.8-14.1); RDW-SD 47.2 fL; WBC 5.71 10^3/uL (4.4-10.8)
[2020-03-16 12:37] LABS: Anion Gap 9.3 mmol/L (3-11); BUN 27 mg/dL (7-18); CO2 23.7 mmol/L (21.0-32.0); CREATININE 1.47 mg/dL (0.70-1.30); Calcium 8.4 mg/dL (8.5-10.1); Chloride 108 mmol/L (98-107); Estimated GFR 46.21 (mL/min/1.73m2); Glucose 110 mg/dL (74-106); Potassium 3.8 mmol/L (3.5-5.1); Sodium 141 mmol/L (136-145)
[2020-03-16 13:08] LABS: Absolute Eosinophil Count 0.17 10^3/uL (0.0-0.7); Absolute Lymphocyte Count 1.08 10^3/uL (1.2-3.4); Absolute Monocyte Count 0.51 10^3/uL (0.1-0.8); Absolute Neutrophil Count 3.83 10^3/uL (1.2-6.7); Bands % 3
[2020-03-16 13:09] LABS: Diff Comment Manual Differential; Metamyelocytes % 2
[2020-03-16 13:10] LABS: Poikilocytes 1+
--- NOTE | 2020-03-16 13:58 | PT.INTREAT ---
Date of service: 03/16/20 Time of Service: 10:15 PT Notes Visit Reasons: RIB FRACTURES Inpatient Physical Therapy Treatment Note [facility] Date: 03/16/2020 PRECAUTIONS: Fall, Activity as tolerated. SUBJECTIVE: Willing to do his PT today. Ribs do not feel too bad with movement. OBJECTIVE: PAIN: No complaints of pain. BED MOBILITY/TRANSFERS Supine-sit: min assist Sit-stand: min assist Stand-sit: min assist GAIT Assistive Device: FWW Weight bearing: WBAT Assist: min assist x 2 Distance: 20ft THEREX: Able to perform ankle pumps, LAQs and seated hip abd/adduction for 10 reps x 2 sets with verbal and tactile cueing needed. ASSESSMENT: Good effort displayed throughout session today. PLAN: Continue with PT's POC with focus on improved functional mobility. TREATMENT CODE/TIME: 45865 x 2, 10:15 to 10:45 (30')
[2020-03-16] MEDS: QUEtiapine 25 MG TAB PO (14:28)
[2020-03-16 15:39] VITALS: BP 116/76; PULSE 81; RESP 18; TEMP 36.6; O2SAT 96
[2020-03-16] MEDS: Tamsulosin 0.4 MG CAPCR PO (17:50)
[2020-03-16] MEDS: Patch Removal 2 EACH TP (21:14)
[2020-03-16 23:10] VITALS: BP 125/80; PULSE 84; RESP 18; TEMP 36.9; O2SAT 97
[2020-03-17] MEDS: Ketorolac 15 MG/ML VIAL IVP (03:56)
[2020-03-17] MEDS: Normal Saline Flush 10 ML SYR IVP ×2 (03:56→19:41)
[2020-03-17] MEDS: QUEtiapine 25 MG TAB 12.5 MG PO (08:06)
[2020-03-17] MEDS: Metoprolol 25 MG TAB 12.5 MG PO (08:06)
[2020-03-17] MEDS: Pantoprazole 40 MG TABCR PO (08:07)
[2020-03-17] MEDS: Furosemide 20 MG TAB PO (08:07)
[2020-03-17] MEDS: Docusate Sodium 100 MG CAP PO (08:07)
[2020-03-17 08:32] VITALS: BP 118/71; PULSE 96; RESP 19; TEMP 36.7; O2SAT 95
[2020-03-17] MEDS: Lidocaine 5% Patch 2 PATCH TP (10:10)
--- NOTE | 2020-03-17 11:44 | PGE_ITS ---
Date of Service Date of service: 03/17/20 Time of Service: 11:45 Assessment and Plan Assessment and plan (1) Multiple fractures of ribs of right side: Start date: 03/17/20 Start time: 11:47 Status: Acute Assessment and plan: Patient comfortable , toradol discontinued due to increased creatinine, trend creatinine Nucyenta as needed, this seems to allow him to continue to be awake and alert Tylenol PRN, He was able to follow commands, though he was not able to answer questions due to confusion which is baseline Family would like him to go to [facility]. Wednesday CM will send referrals (2) Dementia: Start date: 03/17/20 Start time: 11:48 Status: Chronic Assessment and plan: acute delirium has improved. will schedule seroquel to avoid periods of agitation requiring prn He has not had agitation, appears to be Alert awake and calm, follows commands just confused. (3) Paroxysmal A-fib: Start date: 03/17/20 Start time: 11:49 Status: Acute Assessment and plan: on beta aleena Restarted on xarelto will follow CBC to montior hemoglobin (4) History of CVA (cerebrovascular accident): Start date: 03/17/20 Start time: 11:49 Status: Acute Assessment and plan: stable. discussed with DR Park Subjective Subjective Patient reports: no new complaints Interval history since last seen: Sitting up in chair confused. Eating and drinking without difficulty. Awake and Alert, awaiting placement Exam Const General: comfortable, no acute distress and frail appearing Nutritional Appearance: average body habitus Orientation: alert, awake and confused [facility] Head: normal to inspection, normocephalic and atraumatic Mouth: oral mucosae normal Chest Chest: normal inspection of the chest Resp Effort & Inspection: normal respiratory effort Auscultation: diminished lung sounds (poor inspiratory effort) Cardio Rate: regular rate Rhythm: abnormal rhythm irregularly irregular GI Inspection: normal to inspection Palpation: soft Auscultation: normal bowel sounds Neuro General: patient confused Cognition: abnormal cognition (severe advanced dementia) Motor: muscle tone normal throughout Extrem General: normal to inspection, full ROM and no pedal edema Objective Last Vital Signs Temp 36.7 C 03/17/20 08:32 Pulse 96 H 03/17/20 08:32 Resp 19 03/17/20 08:32 BP 118/71 03/17/20 08:32 Pulse Ox 95 03/17/20 08:32 Laboratory Results - last 24 hr 03/16/20 03/16/20 12:08 12:08 WBC 5.71 RBC 3.61 L Hgb 10.6 L Hct 32.7 L MCV 90.6 MCH 29.4 MCHC 32.4 RDW 14.1 Plt Count 215 MPV 10.0 Immature Gran % See Differential Neutrophils % 64.0 Band Neutrophils % 3 Lymphocytes % 19.0 Monocytes % 9.0 Eosinophils % 3.0 Basophils % 0.0 Metamyelocytes % 2 Nucleated RBC % 0 Absolute Neutrophils 3.83 Absolute Lymphocytes 1.08 L Absolute Monocytes 0.51 Absolute Eosinophils 0.17 Absolute Basophils 0.00 RBC Morphology See below Poikilocytosis 1+ Sodium 141 Potassium 3.8 Chloride 108 H Carbon Dioxide 23.7 Anion Gap 9.3 BUN 27 H Creatinine 1.47 H Estimated GFR/1.73 m2 46.21 Glucose 110 H Calcium 8.4 L
--- NOTE | 2020-03-17 12:44 | CMPROGNOTE_ITS ---
- If Service Date Differs Date of service: 03/17/20 Time of Service: 12:44 Care Management Progress Note S/O: Rubén was ambulating in the mason with PT when CM came to see him. He was following directions and was able to ambulate about 25 feet with assist of 2. In addition he participated in bed exercises. Per PT, he requires a lot of cueing. Rubén remains confused, but is generally cooperative. On Wednesday, ANAID discussed his progress with his daughter, Lexie, who was very pleased, and stated that she would like to pursue SNF placement for short term rehab. They would like him to regain some strength and independence prior to returning home. ANAID sent a referral to [facility], at the family's request. He was declined for admission. ANAID discussed this with Lexie, who will give CM additional options to send referrals to on Wednesday (they will not be reviewed until then as it was late afternoon on Wed when he was declined by [facility]). CM will make further inquiries with [facility] regarding their decision, as they may need additional clinical information. CM will send more documentation on his b ehaviors on Wednesday, assuming he is stable through the weekend. The family does not want the referral sent to the [facility] at this time, but realize that it may be an option that they will entertain if other options are exhausted. CM will communicate with Lexie on Wednesday regarding his placement. CM will continue to follow. Lexie's contact # [phone]. (number in chart is incorrect) A: Rubén is a 79 year old male admitted to [facility] on 03/13/20 with Rib Fractures. P: Anticipate Rubén will go to a SNF for short term rehab prior to returning home with services. He was declined by [facility]. Additional referrals to be sent Wednesday. He will be transported via [facility] w/c van vs ambulance. He will follow up with Palliative, his PCP and his discharge plan of care. CM will continue to follow.
--- NOTE | 2020-03-17 13:44 | PT.INTREAT ---
Date of service: 03/17/20 Time of Service: 11:05 PT Notes Visit Reasons: RIB FRACTURES Inpatient Physical Therapy Treatment Note [facility] Date: 03/17/2020 PRECAUTIONS: Fall, activity as tolerated SUBJECTIVE: Stated he is good with doing his exercises and taking a walk. Indicated his right ribcage region is not as sore today. OBJECTIVE: PAIN: Pain in right hip with occasional movement. Ribs sore when attempting to turn to sit in chair, but tolerable. BED MOBILITY/TRANSFERS Up in chair when I arrived to room Sit-stand: Min assist of 2 Stand-sit: Min assist of 2 GAIT Assistive Device: FWW Weight bearing: WBAT Assist: min to mod assist x 2, requires a lot of verbal and tactile cuing. Difficulty backing up to recliner today. Distance: 25ft Uses a SPC at home and seems to have a difficult time remembering to not lift walker up in the air when he steps. Tends to try to move walker too far in front of him. THEREX: Performed seated hip flexion, hip abd/adduction, LAQs and ankle pumps for 2 sets x 10 reps each. ASSESSMENT: Tolerated PT session well with good effort given. Need to work on continues gait training with FWW. PLAN: Continue with current POC with focus on improved ADL function. TREATMENT CODE/TIME: [id number], 11:05 to 11:30 (25')
[2020-03-17] MEDS: Acetaminophen 325 MG TAB 650 MG PO (14:34)
[2020-03-17] MEDS: QUEtiapine 25 MG TAB PO (14:34)
[2020-03-17 15:38] VITALS: BP 124/84; PULSE 88; RESP 18; TEMP 37.3; O2SAT 97
[2020-03-17] MEDS: Tamsulosin 0.4 MG CAPCR PO (17:07)
[2020-03-17] MEDS: Rivaroxaban 10 MG TABLET 20 MG PO (17:07)
[2020-03-17] MEDS: Patch Removal 2 EACH TP (22:54)
[2020-03-17 23:45] VITALS: BP 122/82; PULSE 86; RESP 18; TEMP 37.1; O2SAT 97
[2020-03-18 07:25] VITALS: BP 116/67; PULSE 54; RESP 17; TEMP 36.8; O2SAT 98
[2020-03-18] MEDS: Lidocaine 5% Patch 2 PATCH TP (11:05)
--- NOTE | 2020-03-18 13:50 | PT.INTREAT ---
Date of service: 03/18/20 Time of Service: 13:50 PT Notes Visit Reasons: RIB FRACTURES Inpatient Physical Therapy Treatment Note [facility] Date: 03/18/2020 PRECAUTIONS: Fall. Activity as tolerated. [place]. SUBJECTIVE: During the morning session patient appeared significantly confused and was hallucinating. He indicates that there are blades on the STEDY lift and will not stand on it. He states that there is a wrench under his left foot and he would not stand on it. He moaned, groaned, and called for his mama and his lily while crying during supine to sit. OBJECTIVE: PAIN: Continues to complain of right-sided chest pain related to his multiple rib fractures. Complained of pain in his perineal area. Nurse Deandra aware. BED MOBILITY/TRANSFERS Supine-sit: Moderate assist x 2 Sit-stand: Moderate assist x2 Stand-sit: Moderate assist x2 GAIT Deferred activity during the first attempt for morning session due to increased confusion and mild agitation/combativeness but was able to tolerate bed to bedside chair transfer with 4 steps, 2 small turns, and 1 step back with moderate assist of 2 and perform a lot better for the afternoon session. Assistive Device: FWW with wheelchair follow of [employer] Viviana Weight bearing: WBAT Assist: Minimal assist of 1 and standby assist of L inequality Distance: 4 steps, 2 small turns, and 1 step back Deviation: Tendency to push posteriorly. Decreased step height and length. Decreased tung. Unsafe to back up on chair. THEREX: Rubén is able to follow BLE movements while seated performing L AQ's x10, hip flexion x10, hip abduction x10, and ankle DF and PF with moderate verbal and visual cueing. ASSESSMENT: Performed significantly better during the second attempt for the morning session and in the afternoon with increased clarity and ability to follow single step commands. PLAN: Continue with PT POC to achieve initially established goals. TREATMENT CODE/TIME: Session 1-- 23681 x 23 minutes beginning at 8:49 AM. Session 2??55730 x 33 minutes, 95361 x 30 minutes beginning at 12:10 PM and 1:50 PM.
--- NOTE | 2020-03-18 14:05 | PGE_ITS ---
Date of Service Date of service: 03/18/20 Time of Service: 14:05 Assessment and Plan Assessment and plan (1) Multiple fractures of ribs of right side: Start date: 03/18/20 Start time: 14:07 Status: Acute Assessment and plan: Patient comfortable , toradol discontinued due to increased creatinine, Refused labs today Nucyenta as needed, this seems to allow him to continue to be awake and alert Tylenol PRN, He was able to follow commands, though he was not able to answer questions due to confusion which is baseline Family would like him to go to [facility]. Wednesday will send referrals (2) Dementia: Start date: 03/18/20 Start time: 14:07 Status: Chronic Assessment and plan: acute delirium has improved. Palliative following will schedule seroquel to avoid periods of agitation requiring prn He has not had agitation, appears to be Alert awake and calm, follows commands just confused. (3) Paroxysmal A-fib: Start date: 03/18/20 Start time: 14:08 Status: Acute Assessment and plan: on beta aleena Restarted on xarelto will follow CBC to montior hemoglobin, though he refused labs today will try again tomorrow (4) History of CVA (cerebrovascular accident): Start date: 03/18/20 Start time: 14:09 Status: Acute Assessment and plan: stable. discussed with DR Park Subjective Subjective Patient reports: no new complaints Interval history since last seen: Lying in bed, confused, refused seroquel today. He was trying to give me hugs as I was assessing him. He is eating and drinking. Exam Const General: comfortable, no acute distress and frail appearing Nutritional Appearance: average body habitus Orientation: alert, awake and confused [facility] Head: normal to inspection, normocephalic and atraumatic Mouth: oral mucosae normal Chest Chest: normal inspection of the chest Resp Effort & Inspection: normal respiratory effort Auscultation: diminished lung sounds (poor inspiratory effort) Cardio Rate: regular rate Rhythm: abnormal rhythm irregularly irregular GI Inspection: normal to inspection Palpation: soft Auscultation: normal bowel sounds Neuro General: patient confused Cognition: abnormal cognition (severe advanced dementia) Motor: muscle tone normal throughout Extrem General: normal to inspection, full ROM and no pedal edema Objective Last Vital Signs Temp 36.8 C 03/18/20 07:25 Pulse 54 L 03/18/20 07:25 Resp 17 03/18/20 07:25 BP 116/67 03/18/20 07:25 Pulse Ox 98 03/18/20 07:25
--- NOTE | 2020-03-18 15:39 | CHAPLAIN ---
Rubén was sitting up in his chair when I visited. After I introduced myself and explained my role, he asked me to pray for him tomorrow. I asked if anything special was planned for tomorrow, and he said it was Wednesday, . Tomorrow is Wednesday. I explained that to Rubén. He seemed confused at point during our conversation, and then wanted the chair to be reclined, so I suggested he push the call hassan for assistance since I didn't know how to do it.
--- NOTE | 2020-03-18 15:44 | CMPROGNOTE_ITS ---
- If Service Date Differs Date of service: 03/18/20 Time of Service: 15:44 Care Management Progress Note S/O: Rubén was sitting up in his chair when CM met with him today. He had his lunch in front of him, but was not eating it. Per RN, he didn't want assistance with eating, either. CM contacted admissions at [facility], who asked for additional documentation to show how Rubén did over the weekend. Per reports, he was able to work with PT, and he was cooperative with staff over the weekend. CM sent the notes, and followed up later in the afternoon. Admissions stated that he is still under review. CM also sent referrals to [facility] and [facility]. CM talked to Lexie, who reported that she will be bringing his phone in so he can call his family, as she believes this will be helpful for him. CM will continue to follow. A: Rubén is a 79 year old male admitted to [facility] on 03/13/20 with Rib Fractures. P: Anticipate Rubén will go to a SNF for short term rehab prior to returning home with services. He was declined by [facility], but CM sent updated clinicals to their admissions department today, in hopes that they will reconsider. Additional referrals were sent to [facility] and [facility]. He will be transported via [facility] w/c van vs ambulance. He will follow up with Palliative, his PCP and his discharge plan of care. CM will continue to follow.
[2020-03-18] MEDS: QUEtiapine 25 MG TAB PO (16:04)
[2020-03-18 16:11] VITALS: BP 122/82; PULSE 103; RESP 17; TEMP 37.5; O2SAT 94
[2020-03-18] MEDS: Rivaroxaban 10 MG TABLET 20 MG PO (18:01)
[2020-03-18] MEDS: Tamsulosin 0.4 MG CAPCR PO (18:01)
[2020-03-18] MEDS: Docusate Sodium 100 MG CAP PO (21:38)
[2020-03-18] MEDS: Metoprolol 25 MG TAB 12.5 MG PO (21:38)
[2020-03-18] MEDS: QUEtiapine 25 MG TAB 12.5 MG PO (21:38)
[2020-03-18] MEDS: Patch Removal 2 EACH TP (22:54)
[2020-03-19] MEDS: QUEtiapine 25 MG TAB 12.5 MG PO ×2 (07:48→20:08)
[2020-03-19] MEDS: Pantoprazole 40 MG TABCR PO (07:48)
[2020-03-19] MEDS: Acetaminophen 325 MG TAB 650 MG PO ×2 (07:49→17:50)
[2020-03-19] MEDS: Metoprolol 25 MG TAB 12.5 MG PO ×2 (07:49→20:08)
[2020-03-19] MEDS: Docusate Sodium 100 MG CAP PO ×2 (07:50→20:09)
[2020-03-19 08:04] VITALS: BP 119/76; PULSE 67; RESP 18; TEMP 36.8; O2SAT 97
[2020-03-19 09:43] LABS: Abs Immature Grans 0.15 10^3/uL (0.0-0.06); Absolute Basophil Count 0.01 10^3/uL (0.0-0.2); Absolute Eosinophil Count 0.14 10^3/uL (0.0-0.7); Absolute Lymphocyte Count 1.11 10^3/uL (1.2-3.4); Absolute Monocyte Count 0.89 10^3/uL (0.1-0.8); Absolute Neutrophil Count 5.45 10^3/uL (1.2-6.7); Basophils % 0.1; Eosinophils % 1.8; HGB 11.4 g/dL (13.5-17.5); Immature Grans % 1.9; Lymphocytes % 14.3; MCH 29.2 pg (27.0-33.0); MCHC 32.6 % (32.0-36.0); MCV 89.7 fL (80-95); Monocytes % 11.5; Neutrophils % 70.4; Nucleated RBC 0 %; Platelet Count 244 10^3/uL (130-400); RDW-SD 45.6 fL; WBC 7.75 10^3/uL (4.4-10.8)
[2020-03-19 09:52] LABS: Anion Gap 6.5 mmol/L (3-11); BUN 20 mg/dL (7-18); CO2 24.5 mmol/L (21.0-32.0); CREATININE 1.09 mg/dL (0.70-1.30); Calcium 8.5 mg/dL (8.5-10.1); Chloride 104 mmol/L (98-107); Glucose 145 mg/dL (74-106); Potassium 3.9 mmol/L (3.5-5.1); Sodium 135 mmol/L (136-145)
[2020-03-19] MEDS: Lidocaine 5% Patch 2 PATCH TP (11:28)
[2020-03-19] MEDS: QUEtiapine 25 MG TAB PO (14:35)
--- NOTE | 2020-03-19 15:36 | W.PM.PROGNOT ---
Date of Service Date of service: 03/19/20 Time of Service: 15:36 Assessment and Plan Assessment and plan (1) Multiple fractures of ribs of right side: Status: Acute Assessment and plan: pain seems managed, respiratory status stable. (2) Dementia: Status: Chronic Assessment and plan: stable on scheduled seroquel (3) Paroxysmal A-fib: Status: Acute Assessment and plan: on beta aleena and anticoagulated on xarelto (4) History of CVA (cerebrovascular accident): Status: Acute Assessment and plan: stable. discussed with DR Park (5) Discharge planning issues: Status: Acute Assessment and plan: case management following, referrals placed. discussed with Dr Park Subjective Subjective Patient reports: no new complaints, tolerating liquids well, tolerating a regular diet and afebrile Exam Const General: comfortable, no acute distress and frail appearing Nutritional Appearance: average body habitus Orientation: confused (sedate) HENMT Head: normal to inspection, normocephalic and atraumatic Mouth: oral mucosae normal Chest Chest: normal inspection of the chest Resp Effort & Inspection: normal respiratory effort Auscultation: diminished lung sounds (poor inspiratory effort) Cardio Rate: regular rate Rhythm: abnormal rhythm irregularly irregular GI Inspection: normal to inspection Palpation: soft Auscultation: normal bowel sounds Neuro General: patient confused Cognition: abnormal cognition (severe advanced dementia) Motor: muscle tone normal throughout Extrem General: normal to inspection, full ROM and no pedal edema Objective Last Vital Signs Temp 36.8 C 03/19/20 08:04 Pulse 67 03/19/20 08:04 Resp 18 03/19/20 08:04 BP 119/76 03/19/20 08:04 Pulse Ox 97 03/19/20 08:04 Laboratory Results - last 24 hr 03/18/20 03/18/20 03/19/20 05:35 05:35 09:35 WBC Cancelled RBC Cancelled Hgb Cancelled Hct Cancelled MCV Cancelled MCH Cancelled MCHC Cancelled RDW Cancelled Plt Count Cancelled MPV Cancelled Immature Gran % Neutrophils % Lymphocytes % Monocytes % Eosinophils % Basophils % Nucleated RBC % Absolute Neutrophils Absolute Lymphocytes Absolute Monocytes Absolute Eosinophils Absolute Basophils Sodium Cancelled 135 L Potassium Cancelled 3.9 Chloride Cancelled 104 Carbon Dioxide Cancelled 24.5 Anion Gap Cancelled 6.5 BUN Cancelled 20 H D Creatinine Cancelled 1.09 Estimated GFR/1.73 m2 Cancelled >= 60.00 Glucose Cancelled 145 H Calcium Cancelled 8.5 03/19/20 09:35 WBC 7.75 RBC 3.90 L Hgb 11.4 L Hct 35.0 L MCV 89.7 MCH 29.2 MCHC 32.6 RDW 14.0 Plt Count 244 MPV 10.0 Immature Gran % 1.9 Neutrophils % 70.4 Lymphocytes % 14.3 Monocytes % 11.5 Eosinophils % 1.8 Basophils % 0.1 Nucleated RBC % 0 Absolute Neutrophils 5.45 Absolute Lymphocytes 1.11 L Absolute Monocytes 0.89 H Absolute Eosinophils 0.14 Absolute Basophils 0.01 Sodium Potassium Chloride Carbon Dioxide Anion Gap BUN Creatinine Estimated GFR/1.73 m2 Glucose Calcium
--- NOTE | 2020-03-19 15:47 | PTTR_ITS ---
Date of service: 03/19/20 Time of Service: 15:47 PT Notes Visit Reasons: RIB FRACTURES Inpatient Physical Therapy Treatment Note [facility] Date: 03/19/2020 PRECAUTIONS: Fall. Activity as tolerated. [place]. SUBJECTIVE: Agreeable to PT consult. Appeared much more pleasant, cognitively clearer, and cooperative during the morning and afternoon sessions. Continues to report discomfort on the right side of his chest. Rubbed of the lateral side of his right thigh after exercise activity in the afternoon. Happy to have spoken with the daughter over the phone before session. OBJECTIVE: PAIN: Continues to complain of right-sided chest pain related to his multiple rib fractures. No complaints of pain in his perineal area. BED MOBILITY/TRANSFERS Supine-sit: Minimal assist Sit-stand: Moderate assist Stand-sit: Moderate assist Bed-chair: Minimal assist of 2 Chair?bed: Minimal assist of 2 GAIT Assistive Device: FWW with wheelchair follow provided by nurse Manuel during the morning and afternoon sessions Weight bearing: WBAT Assist: Minimal assist of 1 and standby assist of Nurse Manuel for wheelchair follow Distance: In the morning covered 30 feet was 25 feet + 8 feet and in the afternoon, covered 30 feet Deviation: Continues to have increased tendency to push posteriorly. Decreased step height and length. Decreased tung. Unsafe to back up on chair. THEREX: In the morning session, Rubén is able to follow B LE movements while seated performing L AQ's x10, hip flexion x10, hip abduction x10, and ankle DF and PF with moderate verbal and visual cueing. In the afternoon session, Rubén was able to tolerate sit to stand activity x10 while pushing down on the edge of bed requiring only contact-guard assist. EOB elevated to about 22 inches from floor. He also was able to perform trunk stabilization exercises with flexion and extension x10 with arms across chest. ASSESSMENT: Rubén continues to demonstrate increased activity tolerance, improve cognitive status, and increased motivation to participate during exercise session. Pain continues to limit functional performance albeit to a lesser extent. Will benefit [facility] in order to continue with functional mobility progression and increase ability to later on remain at home. PLAN: Continue with PT POC to achieve initially established goals. TREATMENT CODE/TIME: Session 1-- 20662 x 15 minutes, 9711 0 x 12 minutes beginning at 10:47 AM. Session 2??[id number] x 30 minutes, 10526 x 13 minutes beginning at 15:47 PM.
[2020-03-19 16:17] VITALS: BP 113/74; PULSE 75; RESP 17; TEMP 36.2; O2SAT 99
[2020-03-19] MEDS: Rivaroxaban 10 MG TABLET 20 MG PO (17:50)
[2020-03-19] MEDS: Tamsulosin 0.4 MG CAPCR PO (17:50)
--- NOTE | 2020-03-19 18:35 | PDOC.CMPRO ---
- If Service Date Differs Date of service: 03/19/20 Time of Service: 18:35 Care Management Progress Note S/O: Rubén was sitting up in bed when ANAID met with him today. He was pleasantly confused. ANAID coordinated a zoom meeting with [facility] staff today to meet with Rubén in order to determine if they will offer him a bed at their facility. The zoom meeting went well. When asked how he would feel about going to the rehab facility, and he replied that would be great!. He was appropriate in conversation, although at times he did appear confused, which is to be expected given his diagnosis of dementia. ANAID attempted to connect with admissions at [facility], without success, after the meeting. CM left a voicemail as well as an email to inquire about the decision. CM will continue to follow. A: Rubén is a 79 year old male admitted to [facility] on 03/13/20 with Rib Fractures. P: Anticipate Rubén will go to a SNF for short term rehab prior to returning home with services. He is being considered for admission at [facility]. Additional referrals were sent to [facility] and [place]. He will be transported via [facility] w/c van vs ambulance. He will follow up with Palliative, his PCP and his discharge plan of care. CM will continue to follow.
[2020-03-19] MEDS: Patch Removal 2 EACH TP (21:19)
[2020-03-19 22:42] VITALS: BP 102/61; PULSE 94; RESP 18; TEMP 36.8; O2SAT 97
[2020-03-20 07:32] VITALS: BP 111/73; PULSE 90; RESP 17; TEMP 36.6; O2SAT 95
[2020-03-20] MEDS: QUEtiapine 25 MG TAB 12.5 MG PO (08:05)
[2020-03-20] MEDS: Pantoprazole 40 MG TABCR PO (08:06)
[2020-03-20] MEDS: Docusate Sodium 100 MG CAP PO (08:06)
[2020-03-20] MEDS: Metoprolol 25 MG TAB 12.5 MG PO (08:07)
--- NOTE | 2020-03-20 09:04 | W.PM.DS.N ---
Date of service: 03/20/20 Time of Service: 09:04 DS: Diagnosis Discharge Diagnosis (1) Multiple fractures of ribs of right side: Status: Acute (2) Dementia: Status: Chronic (3) Paroxysmal A-fib: Status: Acute (4) History of CVA (cerebrovascular accident): Status: Acute Discharge Plan Disposition Patient Disposition: SKILLED NSG. FAC.(LEVEL 1) Condition: Stable Discharge Details Reason For Visit: RIB FRACTURES Admit Date/Time: 03/13/20 21:10 Admit Provider: Rip Troncoso Attending Provider: Rip Troncoso Primary Care Provider: [facility] Course Hospital Course: THis is a 79 year old man with a past medical history significant for lewy body dementia, CVA with subsequent speech and balance difficulties, PAF, anticoagulated with xarelto, and glaucoma, who fell at home and sustained multiple rib fractures. He was admitted to hospitalist services for pain management and PT/OT. He is a DNR/DNI. Palliative was consulted to discuss advanced care planning, goals of care and to continue to follow him as an outpatient. His hospital course was complicated by acute delirium stabilized on seroquel. He also had an indwelling catheter placed for urinary retention. his xarelto had been placed on hold on admission but restarted with no evidence of bleeding. medically he has remained stable. care management has been working with family on discharge planning and decision for discharge to rehabilitation and referrals placed. He was accepted a [facility] and rehab and is being transported. discharge discussed with Dr Park. Home Meds and New Rx's Prescriptions: New quetiapine 25 mg Tablet 12.5 mg PO BID Qty: 60 RF: 0 quetiapine 25 mg Tablet 25 mg PO DAILY@1500 Qty: 30 RF: 0 acetaminophen [Tylenol] 325 mg Tablet 650 mg PO QID PRN PRN (Reason: pain) Qty: 0 RF: 0 polyethylene glycol 3350 17 gram Powder In Packet 17 g PO BID PRN PRNQty: 0 RF: 0 magnesium hydroxide [Milk of Magnesia] 400 mg/5 mL Suspension 30 ml PO DAILY PRN PRNQty: 0 RF: 0 tamsulosin 0.4 mg Capsule 0.4 mg PO DAILY@1700 Qty: 30 RF: 0 pantoprazole 40 mg Tablet,Delayed Release (Dr/Ec) 40 mg PO DAILY@0730 Qty: 30 RF: 0 lidocaine [Lidoderm] 5 % Adhesive Patch,Medicated 2 patch topical DAILY@1000 Qty: 10 RF: 0 Nucynta 50 mg Tablet 50 mg PO Q4H PRN PRNQty: 12 RF: 0 Continued docusate sodium [Colace] 100 mg Capsule 100 mg PO BID Qty: 0 RF: 0 metoprolol tartrate 25 mg Tablet 12.5 mg PO BID Qty: 0 RF: 0 Discontinued meclizine 25 mg Tablet 25 mg PO TID PRN PRNQty: 0 RF: 0 furosemide 20 mg tablet 20 mg PO BID DIURETIC RF: 0 diphenhydramine-acetaminophen [Tylenol PM Extra Strength] 25-500 mg Tablet PO PRN PRNRF: 0 No Action Xarelto 20 mg Tablet 20 mg PO DAILY RF: 0 Discharge Instructions Instructions: Rib Fracture (DC) Additional Instructions: routine rehab Stand Alone Forms: Nursing Discharge Form Referrals: Rubén Beltran [Primary Care Provider] - Activity:: Activity as Tolerated Equipment/Supplies:: No Equipment Needed Diet:: As Tolerated Discharge Orders Discharge Orders: Discharge Order (Routine); Ordered 03/20/20 Ordered By: Sho Woods DS: Summary Time Spent with Patient providing and/or coordinating discharge services: Greater than 30 minutes Status at Discharge Functional status at discharge: uses cane/walker Overall status at discharge: patient is not back to baseline Mental Status: other (demented) Speech and Movement: other (confused) Mood: other (demented) Affect: other Exam Const General: comfortable, no acute distress and frail appearing Nutritional Appearance: average body habitus Orientation: confused (sedate) [facility] Head: normal to inspection, normocephalic and atraumatic Mouth: oral mucosae normal Chest Chest: normal inspection of the chest Resp Effort & Inspection: normal respiratory effort Auscultation: diminished lung sounds (poor inspiratory effort) Cardio Rate: regular rate Rhythm: abnormal rhythm irregularly irregular GI Inspection: normal to inspection Palpation: soft Auscultation: normal bowel sounds Neuro General: patient confused Cognition: abnormal cognition (severe advanced dementia) Motor: muscle tone normal throughout Extrem General: normal to inspection, full ROM and no pedal edema Psych Mental Status: other (demented) Mood: other (demented) Affect: other DS: Data Vitals/I&O Vitals and I&O: Vital Signs Temperature 36.6 C 03/20/20 07:32 Temperature Source Tympanic 03/20/20 07:32 Pulse 90 03/20/20 07:32 Pulse Rhythm Regular 03/19/20 19:57 Pulse 125 H 03/13/20 18:31 Respiratory Rate 17 03/20/20 07:32 Respiratory Effort Non-Labored 03/19/20 19:57 Respiratory Depth Normal 03/19/20 19:57 Respiratory Pattern Normal 03/19/20 19:57 Blood Pressure 111/73 03/20/20 07:32 Blood Pressure Mean 102 03/13/20 18:39 Blood Pressure Position Sitting 03/13/20 18:39 Pulse Oximetry 95 03/20/20 07:32 Oxygen Delivery Method Room Air 03/19/20 22:42 Oxygen Flow Rate 0 03/19/20 22:42 Pain Level 0 03/19/20 22:42 Intake & Output 03/19/20 03/19/20 03/20/20 11:59 23:59 11:59 Intake Total 240 / 720 480 / 720 Output Total 650 / 650 700 / 700 Balance -410 / 70 480 / 70 -700 / -700 Intake: Oral 240 / 720 480 / 720 Output: Urine 650 / 650 700 / 700 Other: Urine Color Yellow Light Angélica Urine Appearance Clear Clear Clear Comment checked for patiency Stool Size Smear Data Completed and Pending Labs on day of discharge: Labs from last 24 hours 03/20/20 03/19/20 03/19/20 Unknown 09:35 09:35 WBC 7.75 RBC 3.90 L Hgb 11.4 L Hct 35.0 L MCV 89.7 MCH 29.2 MCHC 32.6 RDW 14.0 Plt Count 244 MPV 10.0 Immature Gran % 1.9 Neutrophils % 70.4 Lymphocytes % 14.3 Monocytes % 11.5 Eosinophils % 1.8 Basophils % 0.1 Nucleated RBC % 0 Absolute Neutrophils 5.45 Absolute Lymphocytes 1.11 L Absolute Monocytes 0.89 H Absolute Eosinophils 0.14 Absolute Basophils 0.01 Sodium 135 L Potassium 3.9 Chloride 104 Carbon Dioxide 24.5 Anion Gap 6.5 BUN 20 H D Creatinine 1.09 Estimated GFR/1.73 m2 >= 60.00 Glucose 145 H Calcium 8.5 COVID-19 Source Pending SARS-CoV-2 (PCR) Pending [facility] Medical History (Updated 03/14/20 @ 14:18 by Jamila Padgett NP) Cerebrovascular accident (09/25/12) Presumed ischemic left thalamus, balance problems and speech problems 09/25/2012. Chest pain Chronic anticoagulation Dementia probable Lewy body dementia (associated w/ tremors, gait instability and visual hallucinations) DNI (do not intubate) DNR (do not resuscitate) Glaucoma History of CVA (cerebrovascular accident) Hx of smoking Hyperlipidemia Laceration of thigh, left Palliative care patient Paroxysmal A-fib Surgical History H/O right knee surgery repair after chain saw accident History of phacoemulsification of cataract of both eyes with intraocular lens implantation right eye 10/10/2018, left eye 09/26/2018 Family History Father , in his lat 70's Heart disease Colon cancer Mother , in her 80's Stroke Dementia Social History Smoking/Tobacco Use Status: Former Tobacco Use Quit Date: 02/22/69 Smoking risk assessment performed?: Yes Alcohol Intake: former Drug use: Never Substance use type: does not use 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
[2020-03-20] MEDS: Lidocaine 5% Patch 2 PATCH TP (09:05)
[2020-03-20 09:44] LABS: Source Nasopharynx
[2020-03-20 10:31] LABS: COVID-19 PCR Negative (Negative); Influenza A PCR Negative (Negative); Influenza B PCR Negative (Negative); RSV PCR Negative (Negative)
--- NOTE | 2020-03-20 10:50 | PT.INDS ---
Date of service: 03/20/20 Time of Service: 10:50 PT Notes Visit Reasons: RIB FRACTURES Physical Therapy Inpatient Discharge Summary Date: 03/20/2020 Dates of service: 03/14/2020 through 03/20/2020 Referring Doctor: Rip Troncoso MD PT Orders: PT CONSULT: Eval/Treat. Precautions: Fall. Standard. Activity as tolerated. Hard of hearing. Patient Profile/Admitting Diagnosis: Rubén is a 79-year-old male with a history of CVA and dementia who presented to the ED via EMS on 03/13/2019 due to a fall. He is diagnosed with multiple rib fractures on the right side. CT of the head and neck is negative. Chest CT demonstrated multiple right lower lateral and posterior rib fractures with small reactive pleural effusion and subjacent atelectasis. PMHX: Medical History Cerebrovascular accident (09/25/12) Presumed ischemic left thalamus, balance problems and speech problems 09/25/2012. Chest pain Chronic anticoagulation Dementia probable Lewy body dementia (associated w/ tremors, gait instability and visual hallucinations) Glaucoma History of CVA (cerebrovascular accident) Hx of smoking Hyperlipidemia Laceration of thigh, left Paroxysmal A-fib Surgical History H/O right knee surgery repair after chain saw accident History of phacoemulsification of cataract of both eyes with intraocular lens implantation right eye 10/10/2018, left eye 09/26/2018 Social History/Home Situation: Unable to extract information due to lethargy and confusion Equipment Owned/DME: Unknown at this time Subjective: Wants sot go for a walk as he has not had a bowel movement yet since early this morning. Objective: General Observation: Seated on chair. Constusion see on lateral side of trunk on the R Mental Status: Much more awake. Able to follow single-step commands. Pain: Continues to be protective of the R side of trunk ROM: Right Upper Extremity: Able to move from up to 75% of available AROM with pain at end of range during mobility assessment Left Upper Extremity: Able to move from up to 75% of available AROM with pain at end of range during mobility assessment Right Lower Extremity: Able to move from up to 75% of available AROM with pain at end of range during mobility assessment Left Lower Extremity: Able to move from up to 75% of available AROM with pain at end of range during mobility assessment Strength: Right Upper Extremity: Grossly 3-/5 Left Upper Extremity: Grossly 3-/5 Right Lower Extremity: Grossly 3-/5 Left Lower Extremity: Grossly 3-/5 Sensation: Intact as to pain sensation Bed Mobility/Transfers: Rolling minimal assist Supine to sit minimal assist Sit to supine minimal assist Sit to stand minimal assist of 2 Stand to sit minimal assist of 2 Bed to chair minimal assist of 2 Chair to bed minimal assist of 2 Gait: Minimal to moderate verbal cueing provided for level surface ambulation using front wheeled walker with full weight bearing 400 feet demonstrating more upright trunk, increase step height and length, and no report of increased lateral trunk pain as previously. Trunk changes are much smoother at this time. Requires manual assistance by PT to move walker continuously forward to avoid freezing movements and increased posterior trunk lean by patient. Balance: Static Sitting: Good Dynamic Sitting: Good Static Standing: Fair Dynamic Standing: Fair Assessment: Rubén has demonstrated beginning improvements with mobility level, cognitive status, and mental alertness as his ability to follow instructions has improved. He now requires minimal verbal cueing for transfers and level surface ambulation but continues to require wheelchair follow of a second person for safety. He continues to push back posteriorly when he feels tired and momentarily freezes and leans backward. However, if walker is pushed forward, he is able to continue moving forward. He will continue to benefit from continued strengthening, neuromuscular coordination, and balance retraining at the SNF. Patient continues to present with clinical signs and symptoms consistent with current/admitting diagnoses that have resulted to mobility limitations, gait instability, generalized weakness, and impairment of motor control as demonstrated by the following impairment level findings: 1. Decreased strength to B UE/LE major muscle groups 2. Impaired sitting/standing balance 3. Impaired activity tolerance 4. Limitation of joint range of motion in B UE/LE 5. Increased confusion 6. Lethargic 7. Pain avoidance behavior involving left UE and right side of trunk. Impairments are contributing to the following functional limitations: 1. Dependent bed mobility skills 2. Increased dependence with transfers 3. Inability to safely ambulate due to pain and confusion 4. Increase completion time for mobility ADL performance 5. Increased fall risk 6. Inability to negotiate steps alone safely Goals: Goals X1 week 1. Supine-Sit minimal assist NOT MET 2. Sit-Supine minimal assist NOT MET 3. Sit-Stand minimal assist NOT MET 4. Stand-Sit minimal assist NOT MET 5. Bed-Chair minimal assist NOT MET 6. Chair-Bed minimal assist NOT MET 7. Minimal assist gait on level surface with use of least restrictive device for at least 100 feet without report of pain nor dyspnea NOT MET 8. Fair static and dynamic standing balance/tolerance NOT MET DISCHARGE RECOMMENDATIONS: Patient will benefit from correction facility placement for continued skilled physical therapy services in order to progress mobility level, strength, and balance in preparation for a safe discharge to home. TREATMENT CODE/TIME: 55436 x 20 minutes, 61048 x 30 minutes beginning at 10:50 AM. Thank you for the opportunity to participate in the care of this patient. Mitzi Brown PT, DPT, CLT [facility] [place], [place]
--- NOTE | 2020-03-20 13:54 | CMDISCH_ITS ---
- If Service Date Differs Date of service: 03/20/20 Time of Service: 13:54 LACE Index Scoring Tool - Questions: Length of Stay (in days): 7 - 13 Acuity (Admit via E.D.?): Yes Comorbidities: Cerebrovascular Disease, Dementia E.D. Visits: 2 - Answers: Total Score: 15 Risk of Readmission: High Risk Care Management Discharge Reason for Hospitalization: Rib Fracture Discharge Plan: Rubén will transition to [facility] today for continued PT, short term rehab prior to returning home in the care of his family. He will transport via facility w/c van, coordinated by [facility]. He will follow up with Palliative Care, his PCP, and his discharge plan of care. Patient/Family Education Needs: Review discharge instructions with pt, family and staff of accepting facility, discussion of self care needs and goals of care. Services Needed at Discharge: Snf Facility ([facility]), Transportation (w/c van)
== END 2020-03-20 12:46 | disposition skilled nursing facility (03) | DRG 184 ==
LOC: ER 22:01 → MS 23:06
PROVIDERS: Nurse Practitioner Acute Care; Nurse Practitioner Family; Admitting Provider General Practice; Emergency Provider Registered Nurse Emergency; PCP Internal Medicine; Visit Provider General Practice
DX: S22.41XA Multiple fractures of ribs, right side, initial encounter for closed fracture (principal); J90 Pleural effusion, not elsewhere classified; W18.39XA Other fall on same level, initial encounter; I48.0 Paroxysmal atrial fibrillation; Z79.01 Long term (current) use of anticoagulants; Z86.718 Personal history of other venous thrombosis and embolism; E78.00 Pure hypercholesterolemia, unspecified; H40.9 Unspecified glaucoma; D64.9 Anemia, unspecified; G31.83 Neurocognitive disorder with Lewy bodies; F02.80 Dementia in other diseases classified elsewhere, unspecified severity, without behavioral disturbance, psychotic disturbance, mood disturbance, and anxiety; K59.09 Other constipation; Z87.891 Personal history of nicotine dependence; E78.5 Hyperlipidemia, unspecified; Z66 Do not resuscitate; I69.321 Dysphasia following cerebral infarction; I69.398 Other sequelae of cerebral infarction; R26.89 Other abnormalities of gait and mobility
CPT/HCPCS: 36415; 74177; 80048; 80053; 85027; 96361; 96372; 96374; 97110; 97163; 97530; 99221; 99232; 99233; 99239; 99252; 99285; U0003; 70450; 71260; 72125; 81003; 83735; 84484; 85025; 85610; 94667; J0131; J1630; J1885; J2270; J3490

== ENCOUNTER 2020-03-20 19:05 | Outpatient (REF) | payer OTHER, SELFPAY ==
[2020-03-22 09:08] LABS: COVID-19 RT-PCR Result Not Detected ((See Note))
== END 2020-03-20 19:25 ==
LOC: LBN 19:05
PROVIDERS: PCP Internal Medicine; Visit Provider Nurse Practitioner Adult Health
DX: Z11.52 Encounter for screening for COVID-19 (principal)
CPT/HCPCS: U0003

== ENCOUNTER 2020-03-24 17:27 | Outpatient (REF) | payer MEDICARE, SELFPAY ==
[2020-03-26 14:48] LABS: COVID-19 RT-PCR Result Not Detected ((See Note))
== END 2020-03-24 17:47 ==
LOC: LBN 17:27
PROVIDERS: PCP Internal Medicine; Visit Provider Nurse Practitioner Adult Health
DX: Z11.52 Encounter for screening for COVID-19 (principal)
CPT/HCPCS: U0003

== ENCOUNTER 2020-04-03 22:44 | Outpatient (REF) | payer OTHER, SELFPAY ==
[2020-04-04 16:29] LABS: COVID-19 RT-PCR Result Not Detected ((See Note))
== END 2020-04-03 22:45 | disposition home or self-care (01) ==
LOC: LBN 22:44
PROVIDERS: PCP Internal Medicine; Visit Provider Nurse Practitioner Adult Health
DX: Z20.822 Contact with and (suspected) exposure to COVID-19 (principal)
CPT/HCPCS: U0003

== ENCOUNTER 2020-04-06 17:55 | Outpatient (REF) | payer OTHER, SELFPAY ==
[2020-04-06 19:19] LABS: Bilirubin Negative (Negative); Blood Trace-intact (Negative); Clarity Cloudy (Clear); Glucose Negative (Negative); Ketones Negative (Negative); Leukocyte Esterase Large (Negative); Nitrite Positive (Negative); Specific Gravity 1.025 (1.005-1.025)
[2020-04-06 19:25] LABS: WBC >50 HPF (0-5)
[2020-04-06 19:26] LABS: Bacteria Packed HPF (Negative); C & S Indicated? C&S Done As Ordered
== END 2020-04-06 17:56 | disposition home or self-care (01) ==
LOC: LBN 17:55
PROVIDERS: PCP Internal Medicine; Visit Provider Family Medicine
DX: R82.998 Other abnormal findings in urine (principal); G31.83 Neurocognitive disorder with Lewy bodies
CPT/HCPCS: 87077; 81003; 81015; 87086; 87186

== ENCOUNTER 2020-04-11 18:26 | Outpatient (REF) | payer OTHER, SELFPAY ==
[2020-04-11 18:25] LABS: HCT 35.6 % (40.0-50.0); HGB 11.3 g/dL (13.5-17.5); MCH 28.2 pg (27.0-33.0); MCHC 31.7 % (32.0-36.0); MCV 88.8 fL (80-95); MPV 11.2 fL (8.0-11.0); Nucleated RBC 0 %; Platelet Count 255 10^3/uL (130-400); RBC 4.01 10^6/uL (4.36-5.78); RDW 14.2 % (11.8-14.1); RDW-SD 45.8 fL; WBC 6.71 10^3/uL (4.4-10.8)
[2020-04-11 18:34] LABS: Anion Gap 9.4 mmol/L (3-11); BUN 18 mg/dL (7-18); CO2 26.6 mmol/L (21.0-32.0); CREATININE 1.3 mg/dL (0.70-1.30); Calcium 8.8 mg/dL (8.5-10.1); Chloride 104 mmol/L (98-107); Estimated GFR 53.25 (mL/min/1.73m2); Glucose 103 mg/dL (74-106); Potassium 3.9 mmol/L (3.5-5.1); Sodium 140 mmol/L (136-145)
[2020-04-11 18:57] LABS: Absolute Lymphocyte Count 1.27 10^3/uL (1.2-3.4); Absolute Monocyte Count 0.87 10^3/uL (0.1-0.8); Absolute Neutrophil Count 4.43 10^3/uL (1.2-6.7)
[2020-04-11 18:58] LABS: Diff Comment Manual Differential; Myelocytes % 2
[2020-04-11 18:59] LABS: Poikilocytes 1+
== END 2020-04-11 18:27 | disposition home or self-care (01) ==
LOC: LBN 18:26
PROVIDERS: PCP Internal Medicine; Visit Provider Nurse Practitioner Adult Health
DX: R60.0 Localized edema (principal); N39.0 Urinary tract infection, site not specified
CPT/HCPCS: 80048; 85025

== ENCOUNTER 2020-04-15 19:02 | Outpatient (CLI) | payer OTHER, SELFPAY ==
--- NOTE | 2020-04-15 | DI.RAD_ITS ---
EXAM: XR RIBS RT W PA LAT CHEST CLINICAL HISTORY: NEW FALL, PAIN, ? FX. TECHNIQUE: 2D digital imaging was performed. COMPARISON: CR XR SHOULDER RT COMPLETE 2+V from 04/15/2020 FINDINGS: There are displaced fractures of the right 8th, 9th, and 10th ribs. No pneumothorax or lung contusio n. Calcific tendinitis noted in the right shoulder. No osseous lesions. No obvious pleural effusio n. There is cardiomegaly. No pulmonary edema. No mediastinal widening. IMPRESSION: Displaced fractures of the right 8th, 9th, and 10th ribs. No acute pulmonary findings. Cardiomegaly. No pulmonary edema. DATA REPOSITORY: RADIATION DOSE DELIVERED:
--- NOTE | 2020-04-15 | DI.RAD_ITS ---
EXAM: XR CLAVICLE RT CLINICAL HISTORY: NEW FALL, PAIN, ? FX. TECHNIQUE: 2D digital imaging was performed. COMPARISON: CR,XR XR CHEST 2V PA LATERAL from 09/06/2019 FINDINGS: There is no evidence of fracture. There are degenerative changes in the AC joint but no dislocation. Calcific densities are noted in the lateral subacromial space adjacent to the greater tuberosity co nsistent with calcific tendinitis-bursitis of the rotator cuff mechanism. IMPRESSION: DATA REPOSITORY: RADIATION DOSE DELIVERED:
--- NOTE | 2020-04-15 | DI.RAD_ITS ---
EXAM: XR SHOULDER RT COMPLETE 2+V CLINICAL HISTORY: NEW FALL, PAIN, ? FX. TECHNIQUE: 2D digital imaging was performed. COMPARISON: CR XR CLAVICLE RT from 04/15/2020 FINDINGS: There is no evidence of acute fracture or dislocation. There are mild degenerative changes in the gl enohumeral joint. Moderate degenerative changes in the acromioclavicular joint. There are small calcific densities in the soft tissues adjacent to the greater tuberosity, consistent with calcific tendinitis-bursitis. IMPRESSION: DATA REPOSITORY: RADIATION DOSE DELIVERED:
== END 2020-04-15 19:03 ==
LOC: DI 04-18 19:03
PROVIDERS: PCP Internal Medicine; Visit Provider Nurse Practitioner Adult Health
DX: M25.511 Pain in right shoulder (principal); M19.011 Primary osteoarthritis, right shoulder; M75.31 Calcific tendinitis of right shoulder; R07.81 Pleurodynia; I51.7 Cardiomegaly; S22.41XA Multiple fractures of ribs, right side, initial encounter for closed fracture; Z91.81 History of falling
CPT/HCPCS: 71046; 71100; 73000; 73030

== ENCOUNTER 2020-04-26 16:00 | Outpatient (REF) | payer OTHER, SELFPAY ==
[2020-04-26 14:42] LABS: Bilirubin Negative (Negative); Blood Negative (Negative); Clarity Sl Cloudy (Clear); Glucose Negative (Negative); Ketones Negative (Negative); Leukocyte Esterase Negative (Negative); Nitrite Positive (Negative); Specific Gravity 1.025 (1.005-1.025); Urobilinogen 0.2 EU/dL (Up TO 0.2); pH 6.5 (5-8)
[2020-04-26 14:52] LABS: Bacteria Many HPF (Negative); C & S Indicated? C&S Done As Ordered
== END 2020-04-26 16:01 | disposition home or self-care (01) ==
LOC: NCHCN 16:00
PROVIDERS: PCP Internal Medicine; Visit Provider Internal Medicine
DX: N39.0 Urinary tract infection, site not specified (principal); R82.998 Other abnormal findings in urine
CPT/HCPCS: 87077; 81003; 81015; 87086; 87186

== ENCOUNTER 2020-06-05 13:22 | Outpatient (REF) | payer MEDICARE, SELFPAY ==
[2020-06-05 14:03] LABS: Bilirubin Negative (Negative); Blood Negative (Negative); Clarity Sl Cloudy (Clear); Glucose Negative (Negative); Ketones Negative (Negative); Leukocyte Esterase Negative (Negative); Nitrite Positive (Negative)
[2020-06-05 14:15] LABS: Bacteria Rare HPF (Negative); C & S Indicated? No; Casts 0-2 Coarse Granular LPF (Negative); Crystals Negative HPF (Negative); Epithelial Cells Rare HPF (Negative); Mucus Negative (Negative); RBC 0-2 HPF (0-2)
[2020-06-05 14:16] LABS: WBC 0-2 HPF (0-5)
== END 2020-06-05 13:23 | disposition home or self-care (01) ==
LOC: LBN 13:22
PROVIDERS: PCP Internal Medicine; Visit Provider Family Medicine
DX: Z87.440 Personal history of urinary (tract) infections (principal); R82.998 Other abnormal findings in urine
CPT/HCPCS: 81003; 81015